=== PATIENT | female | born 1995 | race Caucasian/White ===

== ENCOUNTER 2021-11-27 16:17 | Emergency (ER) | payer OTHER, SELFPAY ==
[2021-11-27 16:18] VITALS: BP 137/98; PULSE 109; RESP 18; TEMP 36.3; O2SAT 99; BMI 41.7
[2021-11-27 16:36] LABS: Bacteria 0 SEEN /hpf (None Seen); Mucous, Urine 0 SEEN /hpf (<or=2+); Red Blood Cells-Urine 0 SEEN /hpf (0-5)
[2021-11-27 16:46] LABS: Color, Urine Yellow (Yellow); Glucose, Dipstick Normal (Normal); Ketone-Dipstick Negative (Negative); Leukocyte Esterase-Dipstick 100 /ul (Negative); Nitrite-Dipstick Negative (Negative); Occult Blood-Urine 10 /ul (Negative); Protein-Dipstick Negative (Negative); Urine Bilirubin Dipstick Negative (Negative); Urine Clarity Clear (Clear); Urine Urobilinogen Normal (Normal)
[2021-11-27 17:29] LABS: Squamous Epithelial Cells - UA 0-5 SEEN /hpf (5-10); White Blood Cells 0-5 SEEN /hpf (0-5)
--- NOTE | 2021-11-27 18:10 | CT_ITS ---
STUDY: CT Abdomen And Pelvis W/O Contrast Injection 11/27/2021 6:46 PM REASON FOR EXAM: Female, 26 years old. ABDOMINAL PAIN Pain TECHNIQUE: Transaxial images were obtained without oral contrast, and without intravenous contrast. Individualized dose optimization techniques were used for this CT. COMPARISON: 12.06.14. FINDINGS: The visualized lung bases are unremarkable. The visualized portions of the heart are within normal limits. There is hepatomegaly with diffuse hepatic enlargement. There is non-visualization of the gallbladder, which may be secondary to either contraction or a prior cholecystectomy. Unremarkable spleen. Unremarkable pancreas. Unremarkable bilateral adrenal glands. No acute findings of the right kidney. No acute findings of the left kidney. Unremarkable visualized stomach. Unremarkable small intestine. Unremarkable colon. The appendix is visualized and appears unremarkable. There are no acute findings of the abdominal aorta. Unremarkable inferior vena cava. Subcentimeter mesenteric lymph nodes. Right ovary cyst. No follow up required. Unremarkable urinary bladder. There is absence of the uterus consistent with a prior hysterectomy. There is an umbilical hernia containing fat. Unremarkable osseous structures. CT/Abdomen/Pelvis without Cont IMPRESSION: (NOT LISTED IN ORDER OF SIGNIFICANCE) There are no acute findings. There is hepatomegaly with diffuse hepatic enlargement. Other findings as above. Electronically Signed: Otto Díaz MD at 18:47 EDT ,
--- NOTE | 2021-11-27 18:11 | EDS_ITS ---
HPI HPI - GI History of Present Illness Chief Complaint: Abd Pain Narrative Narrative: Patient presents with suprapubic to periumbilical abdominal pain that began on Tuesday, approximately 4 days ago. She states that she had urinary frequency and some discomfort with urination. She thought maybe she had a UTI so she started drinking cranberry juice. She denies any fevers or chills. No nausea or vomiting. She then began having more suprapubic to periumbilical pain. She had history of ovarian cysts and felt that this was similar. However, when she is a heating pad, it made the pain worse. It became sharp and stabbing and more unrelenting. She denies any hematuria or other problems with urination. No problems with bowel movements. Of note, she did have a partial hysterectomy then developed a 10 cm ovarian cyst on the right. They had to remove her left ovary because of an ovarian cyst. She denies any true exacerbating or alleviating factors, only stating that the heating pad made her pain worse. Nothing made it better including Tylenol and ibuprofen. She presents because of the continued pain. She denies any problems with bowel movements. [facility] Medical History (Updated 11/27/21 @ 19:08 by David Simental MD) Cholecystectomy planned Ovarian cyst Allergy/AdvReac Type Severity Reaction Status Date / Time chlorhexidine gluconate Allergy Hives Verified 11/27/21 16:19 [From [facility]] codeine Allergy Hives Verified 11/27/21 16:19 penicillin Allergy Hives Verified 11/27/21 16:19 Surgical History H/O: hysterectomy Social History Smoking Status: Never smoker ROS ROS ED ROS Narrative Constitutional: No fever, no chills. HEENT: No sore throat. No neck pain. No loss of vision. No rhinorrhea. Cardiovascular: No chest pain. No palpitations. No pedal edema. Respiratory: No cough, no shortness of breath. Abdominal: Periumbilical to suprapubic abdominal pain. No nausea. No vomiting. Genitourinary: No dysuria. No hematuria. Musculoskeletal: No myalgias. No arthralgias. Neurologic: No headaches. No dizziness. No lightheadedness. Skin: No rash. No change in color. Psychiatric: No depression. No anxiety. EXAM Physical Exam Narrative Exam Narrative: Afebrile. Vital signs noted. HEENT: Normocephalic. Atraumatic. PERRL, EOMI. Neck soft and supple. No point tenderness or step off. Cardiovascular: Regular rate and rhythm. No murmurs, rubs, or gallops appreciated. Respiratory: No tachypnea. Lungs clear to auscultation bilaterally. Gastrointestinal: Abdomen soft, mild tenderness periumbilical to suprapubic, with normoactive bowel sounds. No rebound or guarding. Neurological: Awake. Alert. Nonfocal, nonlateralizing. Skin: No rash. Normal color. No pallor. Musculoskeletal: No pedal edema. Full range of motion extremities. Const Vital Signs: 11/27/21 16:18 Temperature 97.4 F L Temperature Source Temporal Pulse Rate 109 H Respiratory Rate 18 Blood Pressure 137/98 H Blood Pressure Mean 111 Pulse Ox 99 Oxygen Delivery Method Room Air MDM MDM MDM Narrative Medical decision making narrative: Nursing protocol had been started. Urinalysis shows leukocyte esterase 100 but only 0-5 WBCs. Negative ketones. I do feel CT imaging is warranted. CBC and BMP are pending. She will be given Toradol for analgesia. After Toradol she states she feels improved. She has slightly elevated white count at 12.5 which I think is nonspecific, normal hemoglobin of 13.3, normal platelet count of 355. Electrolyte panel is grossly unremarkable. Urinalysis shows 100 leukocyte esterase but 0-5 WBCs. I do not feel antibiotics are indicated. CT of the abdomen pelvis shows no acute process. While there is a right ovarian cyst, there is no free fluid. She may have a fatty liver. At this point in time, I feel she be discharged safely home. She will follow-up with her [employer]. She will also follow-up with her primary care physician. Return instructions to the emergency department were reviewed. Disposition is discharged home in stable condition. Lab Data Attestation: I reviewed the patient's lab results. Labs: Laboratory Results - last 24 hr 11/27/21 11/27/21 11/27/21 16:26 18:03 18:03 WBC 12.5 H RBC 4.93 Hgb 13.3 Hct 41.1 MCV 83.4 MCH 27.0 MCHC 32.4 RDW Std Deviation 39.0 RDW Coeff of Lisha 12.9 Plt Count 355 MPV 11.2 Immature Gran % (Auto) 0.200 Neut % (Auto) 75.0 H Lymph % (Auto) 17.3 L Crosby % (Auto) 5.5 Eos % (Auto) 1.6 Baso % (Auto) 0.4 Absolute Neuts (auto) 9.4 H Absolute Lymphs (auto) 2.16 Nucleated RBC % 0 Sodium 139 Potassium 3.9 Chloride 106 Carbon Dioxide 28.0 Anion Gap 5 BUN 6 L Creatinine 0.69 Estim Creat Clear Calc 104.82 Est GFR (MDRD) Af Amer 130 Est GFR (MDRD) Non-Af 108 BUN/Creatinine Ratio 8.7 L Glucose 94 Calcium 9.4 Urine Color Yellow Urine Clarity Clear Urine pH 7.0 Ur Specific Woodman 1.010 Urine Protein Negative Urine Glucose (UA) Normal Urine Ketones Negative Urine Occult Blood 10 H Urine Nitrite Negative Urine Bilirubin Negative Urine Urobilinogen Normal Ur Leukocyte Esterase 100 H Urine RBC 0 SEEN Urine WBC 0-5 SEEN Ur Squamous Epith Cells 0-5 SEEN Urine Bacteria 0 SEEN Urine Mucus 0 SEEN Radiography Diagnostic Testing: Clinical Impression(s) from Imaging Studies Abdomen/Pelvis CT 11/27/21 18:10 IMPRESSION: (NOT LISTED IN ORDER OF SIGNIFICANCE) There are no acute findings. There is hepatomegaly with diffuse hepatic enlargement. Other findings as above. Electronically Signed: Otto Díaz MD at 18:47 EDT Reading Location ID and State: [facility] / [place] , Service support , Discharge Plan Triage Chief Complaint: Abd Pain ED Provider: David Simental Dx/Rx/DC Orders Clinical Impression: Abdominal pain, Dysuria Instructions: ED Abdominal Pain Unkn Cause Fem, ED Dysuria, Uncertain Cause (Adult) Primary Care Provider: Care Physician,No Primary Referrals: NOT,DEFINED [NON-STAFF] - Activity Restrictions/Additional Instructions: Your CT showed no acute process. You do have a right ovarian cyst, but it has not ruptured. Follow-up with your [employer], and your primary care physician. Return with new or worsening symptoms. Disposition Disposition: Home, Self Care
[2021-11-27 18:23] LABS: Absolute Lymphocyte Count 2.16 X10^3/uL (0.83-4.51); Absolute Neutrophil Count 9.4 X10^3/uL (2.0-7.7); Basophil# 0.05 X10^3/uL; Basophil% 0.4 % (0-1); Eosinophils% 1.6 % (0-5); Hematocrit 41.1 % (37-47); Hemoglobin 13.3 g/dL (12.0-15.0); Lymphocyte # 2.16 X10^3/ul (0.83-4.51); Lymphocyte % 17.3 % (19-41); Mean Corp Hgb Conc 32.4 g/dL (32-36); Mean Corpuscular Volume 83.4 fL (81-99); Mean Platelet Vol. 11.2 fl (6.2-12.0); Monocyte# 0.69 X10^3/uL; Monocyte% 5.5 % (0-10); NRBC Flagged by Analyzer 0 % (0-5); Neutrophil # 9.36 X10^3/uL (2.7-7.7); Platelet Count 355 K/mm3 (150-450); RBC Distribution Width CV 12.9 % (11.6-14.6); Red Blood Count 4.93 M/mm3 (4.2-5.4); White Blood Count 12.5 K/mm3 (4.4-11.0)
[2021-11-27 18:41] LABS: Anion Gap 5 (5-15); BUN 6 mg/dL (7-18); BUN/Creat Ratio 8.7 RATIO (10-20); Calcium,Total 9.4 mg/dL (8.5-10.1); Chloride 106 mmol/L (98-107); Creatinine, Serum 0.69 mg/dL (0.55-1.02); EST Glomerular Filtration Rate 108 mL/min (>60); Est Glom Filt Rate - Afr Amer 130 mL/min (>60); Estimated Creatinine Clearance 104.82 ml/min; Glucose 94 mg/dL (74-106); Potassium 3.9 mmol/L (3.5-5.1); Sodium Level 139 mmol/L (136-145)
[2021-11-27] MEDS: 0.9% Normal Saline 1,000 ML 999 ML IV (18:44)
[2021-11-27] MEDS: Ketorolac 30 MG/ML Syringe IV (18:44)
== END 2021-11-27 19:17 | disposition home or self-care (01) ==
PROVIDERS: Emergency Provider Emergency Medicine; Visit Provider Emergency Medicine
DX: R10.9 Unspecified abdominal pain (principal); R30.0 Dysuria; N83.201 Unspecified ovarian cyst, right side
CPT/HCPCS: 74176; 80048; 81001; 85025; 99283; J7030; A4216

== ENCOUNTER → 2025-01-28 | Outpatient (CLI) | payer OTHER, SELFPAY ==
--- NOTE | 2025-01-28 12:00 | BI_ITS ---
EXAM: SCRN MAMM (CAD)W/KAYLYNN BILAT DATE: 01/28/2025 CLINICAL HISTORY: F, Age 29 y/o , SCREENING TECHNIQUE: Procedure Code: [id number] Modality: MG Procedure: SCRN MAMM (CAD)W/KAYLYNN BILAT COMPARISON: Prior exam(s) were compared FINDINGS: TISSUE DENSITY: The breasts are heterogeneously dense, which may obscure small masses. Bilateral Breast Mammographic Findings: No suspicious masses, calcifications or other abnormalities are identified. BI/SCRN MAMM (CAD)W/KAYLYNN BILAT IMPRESSION: No mammographic evidence of malignancy in either breast OVERALL FINAL ASSESSMENT BI-RADS 1: NEGATIVE. RECOMMENDATION: Routine annual follow-up in 1 Year A letter with findings and recommendations will be mailed to the patient. Reading Location: [id number]
--- OUTSIDE RECORDS SUMMARY | 2025-01-28 20:35 | XMS RPT_ITS | CCD ---
Author Organization [facility] Care Team Providers Care Shove Up Name Role Phone PHYSICIAN, NONE Primary Care Physician Unavailab le Unavailable Primary Care Provider Unavailabl e PHYSICIAN, NONE Primary Care Unavailable LYRIC THAPA MD Attending Unavailable LYRIC THAPA MD Attending Unavailable PHYSICIAN, NONE Primary Care Unavailable PHYSICIAN, NONE Primary Care Unavailable LYRIC THAPA MD Attending Unavailable MARCO MESSER, PARI Stanley Attending Unav ailable PHYSICIAN, NONE Primary Care Unavailable PHYSICIAN, NONE Primary Care Unavailable JESSICA MAS Attending Unavail able LYRIC THAPA MD Attending Unavailable PHYSICIAN, NONE Primary Care Unavailable PHYSICIAN, NONE Primary Care Unavailable LYRIC THAPA MD Attending Unavailable PHYSICIAN, NONE Primary Care Unavailable MARCO CALLAHAN-ELENA, PARI Stanley Attending Unav ailable Unavailable Primary Care Provider Unavailabl e PHYSICIAN, NONE Primary Care Unavailable LYRIC THAPA MD Attending Unavailable PHYSICIAN, NONE Primary Care Unavailable LYRIC THAPA MD Attending Unavailable PHYSICIAN, NONE Primary Care Unavailable LYRIC THAPA MD Attending Unavailable PHYSICIAN, NONE Primary Care Unavailable LYRIC THAPA MD Attending Unavailable Pari Lara Referring Unavailable Pari Lara Attending Unavailable Care Physician, No Primary Primary Care Unava ilable Allergies Allergy Classification Reported Allergen(s) Allergy Type Date of Onset Reaction(s) Facility (5 sources) Chlorhexidine; Translations: [CHLORHEXIDINE GLUCONATE] Drug Allergy 5 Hives, Itching [facility] (13 sources) Codeine; Translations: [codeine] Drug Allergy 2 [facility] (14 sources) Penicillin; Translations: [penicillin] Drug Allergy 2 [facility] (12 sources) Chlorhexidine; Translations: [chlorhexidine topical] Drug Allergy [facility] (3 sources) Acetaminophen / Codeine; Translations: [ACETAMINOPHEN-CO DEINE] Drug Allergy 4 [facility] (3 sources) Adhesive Tape; Translations: [ADHESIVE TAPE (ROSINS)] Propensity to adverse reactions 8 [facility] (3 sources) Doxycycline; Translations: [DOXYCYCLINE] Drug Allergy 2 Rash [facility] (3 sources) Penicillins; Translations: [PENICILLINS] Drug Allergy 2 [facility] (1 source) Environmental allergies [Other] Propensity to adverse reactions 8 [facility] (1 source) OTHER; Translations: [OTHER] Propensity to adverse reactions (disorder) 8 [facility] (1 source) Codeine Drug Allergy 2 [facility] Medications Current Medications Medication Drug Class(es) Dates Sig (Normalized) Sig (Original) acetaminophen 325 mg / oxyCODONE hydrochloride 5 mg oral tablet (3 sources) Opioid Agonist Start: 03-15-2024 End: 03-22-2024 take 1 tablet by mouth every four hours as needed for pain Percocet 5 mg-325 mg oral tablet Dose = 1 tab(s), Oral, q4h, PRN as needed for pain, X 7 day(s), # 20 tab(s), 0 Refill(s), Pharmacy: [id number], S/P right oophorectomy S/P laparoscopic surgery, 162.6, cm, 03/15/24 6:32:00 EDT, Height, 127.3, kg, 03/15/24 6:32:00 EDT, Dosing Weight Start Date: 03/15/24 Stop Date: 03/22/24 Status: Ordered Start: 12-07-2021 End: 12-14-2021 take 1 tablet by mouth every six hours as needed for pain Percocet 5 mg-325 mg oral tablet Dose = 2 tab(s), Oral, q6h, PRN for pain, X 4 day(s), # 24 tab(s), 0 Refill(s), Pharmacy: [id number], Pelvic pain Right ovarian cyst, 162.6, cm, 12/10/21 11:15:00 EDT, Height, 108, kg, 12/10/21 11:15:00 EDT, Dosing Weight Start Date: 12/10/21 Stop Date: 12/14/21 Status: Ordered [id number] 200 actuat albuterol 0.09 mg/actuat metered dose inhaler (2 sources) beta2-Adrenergic Agonist Start: 08-01-2019 take 2 puff(s) by inhalation every four hours as needed albuterol HFA (PROVENTIL HFA, VENTOLIN HFA) 90 mcg/actuation inhaler Indications: Wheezing Inhale 2 Puffs as instructed every 4 hours as needed. 1 Inhaler 08/01/2019 Active Comment on above: Inhale 2 Puffs as in structed every 4 hours as needed. azithromycin 250 mg oral tablet (2 sources) Macrolide Antimicrobial Start: 04-23-2024 End: 04-28-2024 azithromycin (ZITHROMAX Z-ARELIS) 250 mg tablet Take 2 tablets day one, then, 1 tablet daily until gone. 6 tablet 04/23/2024 04/28/2024 Active Start: 05-07-2022 End: 05-12-2022 azithromycin (ZITHROMAX Z-PA K) 250 mg tablet Take 2 tablets day one, then, 1 tablet daily until gone. 6 tablet 0 05/07/2022 05/12/2022 Active Comment on above: Take 2 tablets day o ne, then, 1 tablet daily until gone. benzonatate 100 mg oral capsule (2 sources) Non-narcotic Antitussive Start: 08-01-19 20 take 1 capsule by mouth three times daily as needed benzonatate (TESSALON PERLES) 100 mg capsule Indications: Influenza-like illness Take 1 capsule by mouth three times daily as needed. 40 capsule 08/01/2019 Active Comment on above: Take 1 capsule by [facility] three times daily as needed. betamethasone 0.5 mg/ml / clotrimazole 10 mg/ml topical cream (2 sources) Azole Antifungal, Corticosteroid Start: 07-25-19 15 clotrimazole-betam ethasone (LOTRISONE) cream Apply 1 application to affected area twice daily. Apply for 14 days. 45 g 0 07/24/2014 Active Comment on above: Apply 1 application to affected area twice daily. Apply for 14 days. docusate sodium 100 mg oral capsule (2 sources) Start: 06-24-19 take 1 capsule by mouth twice daily docusate sodium (COLACE) 100 mg capsule Take 1 capsule by mouth twice daily. 30 capsule 2 06/24/2014 Active Comment on above: Take 1 capsule by [facility] twice daily. estradiol 2 mg oral tablet (3 sources) Estrogen Start: 03-15-20 End: 03-10-20 estradiol 2 mg oral tablet Dose : 2 mg = 1 tab(s), Oral, qDay, # 90 tab(s), 3 Refill(s), Pharmacy: [id number], 162.6, cm, 03/15/24 6:32:00 EDT, Height, kg, 03/15/24 6:32:00 EDT, Dosing Weight Start Date: 03/15/24 Stop Date: 03/10/25 Status: Ordered Quantity: 90.0 Unit: tab(s) Repeat number: 4 {7 (Ethinyl Estradiol 0.01 MG Oral Tablet) / 84 (Ethinyl Estradiol 0.03 MG / Levonorgestrel 0.15 MG Oral Tablet) } Pack [Simpesse Day] (1 source) Progestin, Estrogen, Progestin-containing Intrauterine Device Start: 12-10-19 take 1 tablet by mouth once daily Simpesse oral tablet Dose = 1 tab(s), Oral, qDay, # 91 tab(s), 0 Refill(s), Pharmacy: [id number], 162, cm, 04/05/22 9:56:00 EST, Height, kg, 04/05/22 9:56:00 EST, Dosing Weight Start Date: 12/09/22 Status: Ordered 12 hr guaiFENesin 600 mg extended release oral tablet (2 sources) Start: 08-01-19 take 2 tablets by mouth twice daily guaiFENesin (MUCINEX) 600 mg 12 hr tablet Indications: Influenza-like illness Take 2 tablets by mouth twice daily. 30 tablet 08/01/2019 Active Comment on above: Take 2 tablets by [facility] twice daily. 12 hr guaiFENesin 600 mg / pseudoephedrine hydrochloride 60 mg extended release oral tablet (2 sources) alpha-Adrenergic Agonist Start: 03-04-20 15 take 1 tablet by mouth every twelve hours pseudoephedrine-gu aiFENesin (,MUCINEX-D,) 60-600 mg per tablet Take 1 tablet by mouth every 12 hours. 30 tablet 1 07/24/2014 Active Comment on above: Take 1 tablet by airam every 12 hours. ibuprofen 600 mg oral tablet (11 sources) Nonsteroidal Anti-inflammatory Drug Start: 03-15-20 End: 04-04-20 ibuprofen 600 mg oral tablet Dose : 600 mg = 1 tab(s), Oral, q6h, PRN for pain, Take with food or milk., X 10 day(s), # 30 tab(s), 1 Refill(s), 04/04/24 7:18:00 AM EST, Pharmacy: [id number], 162.6, cm, 03/15/24 6:32:00 EDT, Height, kg, 03/15/24 6:32:00 EDT, Dosing Weight Start Date: 03/15/24 Stop Date: 04/04/24 Status: Ordered Start: 12-21-2021 take 1 tablet by airam every six hours as needed for pain ibuprofen 600 mg oral tablet TAKE 1 TABLET BY MOUTH EVERY 6 HOURS NEEDED FOR PAIN WITH FOOD OR MILK FOR 7 DAYS Start Date: 12/21/21 Status: Ordered Start: 06-11-2014 End: 12-17-2021 take 1 tablet by mouth every six hours as needed ibuprofen (MOTRIN) 600 mg tablet Take 1 tablet by mouth four times daily as needed. 40 tablet 1 06/11/2014 Active Comment on above: Take 1 tablet by airam four times daily as needed. oxymetazoline hydrochloride 0.5 mg/ml nasal spray (2 sources) Start: 08-01-2019 oxymetazoline (AFRIN, OXYMETAZOLINE,) 0.05 % nasal spray Indications: Influenza-like illness Use 2 Sprays in the nose twice daily. 1 Bottle 08/01/2019 Active Comment on above: Use 2 Sprays in the nose twice daily. predniSONE 10 mg oral tablet (3 sources) Start: 05-07-2022 predniSONE (DELTASONE) 10 mg tablet Take 4 tabs daily for 3 days, then 2 tabs daily for 3 days, then 1 tab daily for 3 days with food. 21 tablet 04/23/2024 Active Comment on above: Take 4 tabs daily fo r 3 days, then 2 tabs daily for 3 days, then 1 tab daily for 3 days with food. Problems Active Problems Problem Classification Problem Date Documented Date Episodic/Chronic Abdominal pain (15 sources) Abdominal pain; Translations: [Unspecified abdominal pain] Onset: 12-10-2021 12-03-2021 Episodic Asthma (2 sources) Allergic asthma; Translations: [Unspecified asthma, uncomplicated] Onset: 04-08-2008 04-08-2008 Chronic Complications of surgical procedures or medical care (1 source) Postsurgical menopause 03-22-2024 Chronic Endometriosis (2 sources) Endometriosis (clinical); Translations: [Endometriosis, unspecified] Onset: 08-11-2014 08-11-2014 Chronic Genitourinary symptoms and ill-defined conditions (1 source) Dysuria; Translations: [Dysuria] Episodic Headache; including migraine (2 sources) Migraine; Translations: [Migraine, unspecified, not intractable, without status migrainosus] Onset: 06-28-2013 06-28-2013 Chronic Menstrual disorders (4 sources) Dysmenorrhea; Translations: [Dysmenorrhea, unspecified] Onset: 02-22-2014 02-22-2014 Chronic Other aftercare (1 source) Surgical follow-up 03-22-2024 Episodic Other ear and sense organ disorders (1 source) Otalgia, right ear; Translations: [Otalgia, unspecified] Episodic Other female genital disorders (10 sources) History of gynecological disorder 06-16-2023 Episodic Other lower respiratory disease (1 source) Cough; Translations: [Acute cough] 04-23-2024 Episodic Other screening for suspected conditions (not mental disorders or infectious disease) (1 source) Encounter for screening mammogram for malignant neoplasm of breast; Translations: [Encounter for screening mammogram for malignant neoplasm of breast] Onset: 01-24-2025 Episodic Other upper respiratory disease (2 sources) Allergic rhinitis due to pollen; Translations: [Allergic rhinitis due to pollen] Onset: 04-08-2008 04-08-2008 Chronic Other upper respiratory disease (2 sources) Allergic rhinitis; Translations: [Allergic rhinitis, unspecified] Onset: 11-18-2008 11-18-2008 Chronic Other upper respiratory infections (1 source) Chronic sinusitis, unspecified; Translations: [Unspecified sinusitis (chronic)] 04-23-2024 Chronic Other upper respiratory infections (2 sources) Pharyngitis; Translations: [Acute pharyngitis, unspecified] Episodic Ovarian cyst (1 source) Cyst of right ovary; Translations: [Unspecified ovarian cyst, right side] Onset: 12-10-2021 Episodic Residual codes; unclassified (2 sources) Past history of procedure; Translations: [Other specified postprocedural states] Onset: 12-10-2021 Episodic Residual codes; unclassified (13 sources) History of laparoscopy 12-10-2021 Episodic Residual codes; unclassified (1 source) Acquired absence of ovary; Translations: [Acquired absence of ovaries, unilateral] Onset: 03-15-2024 Episodic Residual codes; unclassified (2 sources) History of right oophorectomy 03-15-2024 Episodic Unclassified (10 sources) Pain of right breast 06-16-2023 Unclassified (10 sources) Patient encounter status 04-05-2022 Past or Other Problems Problem Classification Problem Date Documented Da te Episodic/Chronic Early or threatened labor (1 source) False labor; Translations: [False labor, unspecified] Onset: 09-13-2013 Resolved: 02-22-2014 02-22-2014 Episodic Other complications of (1 source) Abdominal pain in ; Translations: [Other specified related conditions, unspecified trimester] Onset: 07-25-2013 Resolved: 02-22-2014 02-22-2014 Episodic Other complications of (1 source) Reduced movement; Translations: [Decreased movements, unspecified trimester, not applicable or unspecified] Onset: 08-19-2013 Resolved: 02-22-2014 02-22-2014 Episodic Other nervous system disorders (1 source) H/O: migraine; Translations: [Personal history of other diseases of the nervous system and sense organs] Onset: 06-28-2013 Resolved: 02-22-2014 02-22-2014 Episodic Results Test Name Value Interpretation Reference Range Facility [place] MAMMOGRAM DIAGNOSTIC ABHI T Blanca/Ginger 08-10-2024 [place] MAMMOGRAM DIAGNOSTIC RIGHT W/DAMIAN ORIGINAL FROM: [address] [address] PROCEDURE FOR: ELMO NUNO [address] [place] [id number] Home: PID#: [id number] Exam#: [id number] : 1995 Age: 29 TO: LYRIC THAPA MD [address] [address] Fax: NO FAX EXAMINATION: DIAGNOSTIC DIGITAL RIGHT BREAST MAMMOGRAM WITH TOMOSYNTHESIS, 08/08/2024 2:47 pm TECHNIQUE: Diagnostic mammography of the right breast was performed with tomosynthesis. 2D standard and 3D tomosynthesis combination imaging performed through the right breast. Computer aided detection was utilized in the interpretation of this exam. Current study was also evaluated with a Computer Aided Detection (CAD) system. COMPARISON: 01/26/2024, 02/23/2024 HISTORY: ORDERING SYSTEM PROVIDED HISTORY: Reason for Exam: 6 MO FU FINDINGS: BREAST DENSITY: There are scattered areas of fibroglandular density. The focal asymmetry in the right breast upper outer quadrant is decreased in size and density. No significant masses, calcifications, or other findings. IMPRESSION: No mammographic evidence of malignancy. Right breast focal asymmetry is decreased in size and density, this is consistent with normal breast tissue, no follow-up imaging is needed. The patient may return to annual screening mammography schedule. Marium Zaldivar risk calculations, generated with the history provided, report this patient's 10 year risk and lifetime risk for developing breast cancer at 0.8% and 17.4%, respectively. Based on this assessment tool, if the patient's calculated lifetime risk is below 20%, then the patient is considered at average risk for developing breast cancer. If the patient's calculated lifetime risk is at or above 20%, then the patient is considered high risk for developing breast cancer and may be a candidate for supplemental breast MRI screening in addition to annual mammographic screening per the [employer]. BIRADS: BI-RADS: 2: Benign RECALL: 6 month follow-up RECALL TYPE: mammo LETTER SENT: Normal BI-RADS 1 and 2 Interpreted by: Ronni Reynoso MD Preliminary Report By: Ronni Reynoso MD Electronically signed By oRnni Reynoso MD Dictated Date: 08/10/2024 3:57:31 PM Prelim Date: 08/10/2024 4:02:36 PM Sign Date: 08/10/2024 4:02:36 PM Ordering Provider: LYRIC THAPA Checkering Machine Adjuster: TREVOR CUNHA)(Reuben) letter sent: Normal BI-RADS 1 and 2 Mammogram BI-RADS: 2 Benign Normal [facility] CNOVon 04-23-2024 CNOV Office Visit (UCWSTR ) ELMO NUNO ([id number]) 1995 F Date Time Provider Department 04/23/24 1:00 PM PARI BOO [facility] During your visit today, we recorded the following information about you: Temperature Pulse Respiration Blood pressure 98.9 degrees 99/minute 18/minute 118/76 Weight 116.8 kg Pari Boo APRN.CNP 04/23/2024 12:57 PM Signed This note was created using NoteWriter. Subjective Elmo Nuno is a 29 year old female. 29 year old female with PMH asthma (well controlled, citing she has not had inhaler since high school), migraine presents for illness Acute onset 2 weeks ago +cough +productive +sinus pressure +congestion +chills +fever Denies dyspnea Denies CP Denies SOB Has used OTC medicines Denies tobacco usage +ill contacts The history is provided by the patient. No application support lead was used. Cough This is a new problem. The current episode started more than 1 week ago. The problem occurs constantly. The problem has been gradually worsening. The cough is Productive of sputum. There has been no fever. Associated symptoms include chills, ear congestion and rhinorrhea. Pertinent negatives include no chest pain, no sweats, no weight loss, no ear pain, no headaches, no sore throat, no myalgias, no shortness of breath, no wheezing and no eye redness. She has tried nothing for the symptoms. She is not a smoker. Her past medical history is significant for asthma. Her past medical history does not include bronchitis, pneumonia, bronchiectasis, COPD or emphysema. PAST MEDICAL HISTORY Diagnosis Date Asthma controlled Endometriosis 05/2014 STAGE 2 Endometriosis 08/11/2014 PMH - PAST MEDICAL HISTORY OF primary dysmenorea Polycystic ovarian disease Psychiatric disorder Depression Rheumatoid arthritis(714.0) dx at age 3 S/P laparoscopic hysterectomy 07/14/2014 S/P total hysterectomy 05/2014 Status post total hysterectomy 08/11/2014 PAST SURGICAL HISTORY Procedure Laterality Date EXTRACTION, ERUPTED TOOTH OR EXPOSED ROOT (ELEVATION AND/OR FORCEPS REMOVAL) LAPAROSCOPY W TOTAL HYSTERECTOMY UTERUS 250 GM/< 05/2014 LAPS SURG CHOLECYSTECTOMY W/CHOLANGIOGRAPHY 05/19/2010 OVARIAN CYSTECTOMY 11/2011 laprascopic right cystectomy TONSILLECTOMY PRIMARY/SECONDARY Tonsillectomy age 3 ALLERGIES Acetaminophen-Codeine, Adhesive Tape (Rosins), Doxycycline, Hibiclens [Chlorhexidine Gluconate], and Penicillins MEDICATIONS estradiol (ESTRACE) 2 mg tablet 2 mg. azithromycin (ZITHROMAX Z-ARELIS) 250 mg tablet Take 2 tablets day one, then, 1 tablet daily until gone. predniSONE (DELTASONE) 10 mg tablet Take 4 tabs daily for 3 days, then 2 tabs daily for 3 days, then 1 tab daily for 3 days with food. predniSONE (DELTASONE) 10 mg tablet Take 4 tabs daily for 3 days, then 2 tabs daily for 3 days, then 1 tab daily for 3 days with food. (Patient not taking: Reported on 04/23/2024) guaiFENesin (MUCINEX) 600 mg 12 hr tablet Take 2 tablets by mouth twice daily. (Patient not taking: Reported on 04/23/2024) benzonatate (TESSALON PERLES) 100 mg capsule Take 1 capsule by mouth three times daily as needed. (Patient not taking: Reported on 05/07/2022) oxymetazoline (AFRIN, OXYMETAZOLINE,) 0.05 % nasal spray Use 2 Sprays in the nose twice daily. (Patient not taking: Reported on 04/23/2024) albuterol HFA (PROVENTIL HFA, VENTOLIN HFA) 90 mcg/actuation inhaler Inhale 2 Puffs as instructed every 4 hours as needed. (Patient not taking: Reported on 04/23/2024) pseudoephedrine-guaiFE Nesin (,MUCINEX-D,) 60-600 mg per tablet Take 1 tablet by mouth every 12 hours. (Patient not taking: Reported on 08/01/2019 ) clotrimazole-betametha sone (LOTRISONE) cream Apply 1 application to affected area twice daily. Apply for 14 days. (Patient not taking: Reported on 06/12/2018 ) docusate sodium (COLACE) 100 mg capsule Take 1 capsule by mouth twice daily. (Patient not taking: Reported on 06/12/2018 ) ibuprofen (MOTRIN) 600 mg tablet Take 1 tablet by mouth four times daily as needed. (Patient not taking: Reported on 08/01/2019 ) FAMILY HISTORY Problem Relation Age of Onset Asthma Mother Asthma Maternal Grandmother Heart Maternal Grandfather Ischemic Heart Disease Maternal Grandfather Ischemic Heart Disease Father Heart Father Diabetes Maternal Grandmother Diabetes Father Colon Cancer Paternal Grandfather Colon Cancer Father Diabetes Paternal Uncle Heart Paternal Uncle Heart Maternal Uncle Social History Tobacco Use Smoking status: Never Smokeless tobacco: Never Tobacco comments: mother smokes outside Substance Use Topics Alcohol use: No Drug use: No Review of Systems Constitutional: Positive for chills. Negative for fatigue, fever and weight loss. HENT: Positive for congestion, rhinorrhea, sinus pressure and sinus pain. Negative for ear pa (more content not included)... Normal [facility] Final Surgical Pathology Rep [facility] 03-19-2024 Final Surgical Pathology Report . Pathology Reports Accession: Collected Date/Time: Received Date/Time: Pathologist: [id number] 03/15/2024 08:12 EDT 03/16/2024 08:10 EDT FAUSTO CEDILLO MD Final Surgical Pathology Report DIAGNOSIS: RIGHT OVARY: - FOLLICULAR CYSTS IDENTIFIED CLINICAL INFORMATION: Procedure: LAPAROSCOPIC RIGHT OOPHORECTOMY Preoperative diagnosis: RIGHT OVARIAN CYST Postoperative diagnosis: RIGHT OVARIAN CYST SPECIMEN: A RIGHT OVARY GROSS DESCRIPTION: All parts labelled with patient name and [id number] Received in formalin labelled right ovary Is a white-cuellar to purple ovary weighing 12 g and measuring 4.1 x 3.1 x 1.8 cm. No fallopian tube is identified with the tissue. The ovary is sectioned to reveal a peripheral thin-walled cysts measuring up to 1.5 cm with no identified excrescences. The remaining ovarian cut surfaces appear unremarkable. RS-2 Tram Mcnulty, Pathologists' Yarn Tester (ASCP) Performed by TRAM MCNULTY MICROSCOPIC DESCRIPTION: The microscopic examination is performed, except in the case of Gross Only. Electronically Signed by Pathology Report verified by [facility] FAUSTO CEDILLO Sign out Date: 03/19/2024 13:34 Performing Lab: [facility], [address] [place] [address] Pathology Dept Disclaimer If ancillary studies were utilized, the following Laboratory Developed Test (LDT) disclaimer will apply: Under CLIA requirements, [facility] is qualified to perform high complexity testing. For all ancillary stains, positive and negative controls stain appropriately. Performance characteristics of immunohistochemical and chromogenic in-situ hybridization tests have been determined by [facility]. These tests are used for clinical purposes, They should not be regarded as investigational or for research. Normal [facility] ABO/Rh (Gel)on 03-15-2024 ABO/Rh Interp Positive Invalid Interpretation Code [facility] Comment on above: Performed By: #### A BSGEL, ABOGEL #### [address] [address] ABS (Gel)on 03-15-2024 ABSC Interp (Gel) Negative Normal [facility] Comment on above: Performed By: #### A BSGEL, ABOGEL #### [address] [address] LABORATORYOrdered By: Raudel Villanueva on 03-15-2024 ABO and Rh group Nom (Bld) Blood group O Rh(D) positive Invalid Interpretation Code AO BB Auto SS Blood group antibody screen Ql Negative ABSC (03/15/24 6:26 AM) Normal AO BB Auto SS .Auto Diffon 03-01-2024 Basophil, Absolute 0.1 10 3/mcL Normal 0.0-0.2 [facility] Comment on above: Performed By: #### A BOGEL, ANEU, ADIFF, CBC, ABSGEL #### [address] [address] Basophils/100 WBC (Bld) 0.7 % Normal 0.0-2.5 [facility] Comment on above: Performed By: #### A BOGEL, ANEU, ADIFF, CBC, ABSGEL #### [address] [address] Eosinophil, Absolute 0.4 10 3/mcL Normal 0.0-0.7 [facility] Comment on above: Performed By: #### A BOGEL, ANEU, ADIFF, CBC, ABSGEL #### [address] [address] Eosinophils/100 WBC (Bld) 3.9 % Normal 0.0-7.0 [facility] Comment on above: Performed By: #### A BOGEL, ANEU, ADIFF, CBC, ABSGEL #### [address] [address] Lymphocyte, Absolute 2.3 10 3/mcL Normal 0.9-4.3 [facility] Comment on above: Performed By: #### A BOGEL, ANEU, ADIFF, CBC, ABSGEL #### [address] [address] Lymphocytes/100 WBC (Bld) 23.6 % Normal 20.0-40.0 [facility] Comment on above: Performed By: #### A BOGEL, ANEU, ADIFF, CBC, ABSGEL #### [address] [address] Monocyte, Absolute 0.6 10 3/mcL Normal 0.1-1.4 [facility] [facility] Comment on above: Performed By: #### A BOGEL, ANEU, ADIFF, CBC, ABSGEL #### [address] [address] Monocytes/100 WBC (Bld) 6.3 % Normal 2.0-13.0 [facility] Comment on above: Performed By: #### A BOGEL, ANEU, ADIFF, CBC, ABSGEL #### [address] [address] Neutrophils/100 WBC (Bld) 65.5 % Normal 50.0-75.0 [facility] Comment on above: Performed By: #### A BOGEL, ANEU, ADIFF, CBC, ABSGEL #### [address] [address] .NEUABSon 03-01-2024 Neutrophil, Absolute 6.4 10 3/mcL Normal 2.3-8.1 [facility] Comment on above: Performed By: #### A BOGEL, ANEU, ADIFF, CBC, ABSGEL #### [place] [address] ABO/Rh (Gel)on 03-01-2024 ABO/Rh Interp Positive Invalid Interpretation Code [facility] Comment on above: Performed By: #### A BOGEL, ANEU, ADIFF, CBC, ABSGEL #### [place] [address] ABS (Gel)on 03-01-2024 ABSC Interp (Gel) Negative Normal [facility] Comment on above: Performed By: #### A BOGEL, ANEU, ADIFF, CBC, ABSGEL #### [place] [address] CBCon 03-01-2024 Erythrocyte distribution width (RBC) [Ratio] 13.6 % Normal 11.5-15.5 [facility] Comment on above: Order Comment: Pre-A dmission Testing Performed By: #### A BOGEL, ANEU, ADIFF, CBC, ABSGEL #### [place] [address] Hematocrit (Bld) [Volume fraction] 38.4 % Normal 34.0-46.0 [facility] Comment on above: Order Comment: Pre-A dmission Testing Performed By: #### A BOGEL, ANEU, ADIFF, CBC, ABSGEL #### [place] [address] Hgb 12.7 G/dL Normal 12.0-16.0 [facility] Comment on above: Order Comment: Pre-A dmission Testing Performed By: #### A BOGEL, ANEU, ADIFF, CBC, ABSGEL #### [facility] [place] [address] [place], [place] [address] MCH (RBC) [Entitic mass] 27.4 pg Normal 27.0-33.0 [facility] Comment on above: Order Comment: Pre-A dmission Testing Performed By: #### A BOGEL, ANEU, ADIFF, CBC, ABSGEL #### [address] [address] MCHC 33.1 G/dL Normal 32.0-36.0 [facility] Comment on above: Order Comment: Pre-A dmission Testing Performed By: #### A BOGEL, ANEU, ADIFF, CBC, ABSGEL #### [address] [address] MCV (RBC) [Entitic vol] 82.8 fL Normal 80.0-99.0 [facility] Comment on above: Order Comment: Pre-A dmission Testing Performed By: #### A BOGEL, ANEU, ADIFF, CBC, ABSGEL #### [address] [address] Platelet 328 10 3/mcL Normal 150-450 [facility] Comment on above: Order Comment: Pre-A dmission Testing Performed By: #### A BOGEL, ANEU, ADIFF, CBC, ABSGEL #### [address] [address] Platelet mean volume (Bld) [Entitic vol] 9.6 fL Normal 6.6-10.5 [facility] Comment on above: Order Comment: Pre-A dmission Testing Performed By: #### A BOGEL, ANEU, ADIFF, CBC, ABSGEL #### [address] [address] RBC 4.64 10 6/mcL Normal 4.10-5.30 [facility] Comment on above: Order Comment: Pre-A dmission Testing Performed By: #### A BOGEL, ANEU, ADIFF, CBC, ABSGEL #### [address] [address] WBC 9.7 10 3/mcL Normal 4.5-10.8 [facility] Comment on above: Order Comment: Pre-A dmission Testing Performed By: #### A CONSTANTINE, RAISA, ADIFF, CBC, ABSGEL #### [facility] [place] [id number] [place], [place] [address] LABORATORYOrdered By: Nahomy Atkins on 03-01-2024 ABO and Rh group Nom (Bld) Blood group O Rh(D) positive Invalid Interpretation Code AO BB Auto SS Blood group antibody screen Ql Negative ABSC (03/01/24 1:24 PM) Normal AO BB Auto SS LABORATORYOrdered By: SYSTEM SYSTEM on 03-01-2024 Basophils (Bld) [#/Vol] 0.1 103/mcL Normal 0.0 - 0.2 10^3/mcL AO Workflow SS Basophils/100 WBC (Bld) 0.7 % Normal 0.0 - 2.5 % AO Workflow SS Eosinophil, Absolute 0.4 103/mcL Normal 0.0 - 0 .7 10^3/mcL AO Workflow SS Eosinophils/100 WBC (Bld) 3.9 % Normal 0.0 - 7.0 % AO Workflow SS Erythrocyte distribution width (RBC) [Ratio] 13.6 % Normal 11.5 - 15.5 % AO Workflow SS Hematocrit (Bld) [Volume fraction] 38.4 % Normal 34.0 - 46.0 % AO Workflow SS Hemoglobin (Bld) [Mass/Vol] 12.7 G/dL Normal 12.0 - 16.0 G/dL AO Workflow SS Lymphocytes (Bld) [#/Vol] 2.3 103/mcL Normal 0.9 - 4.3 10^3/mcL AO Workflow SS Lymphocytes/100 WBC (Bld) 23.6 % Normal 20.0 - 40.0 % AO Workflow SS MCH (RBC) [Entitic mass] 27.4 pg Normal 27.0 - 33.0 pg AO Workflow SS MCHC 33.1 G/dL Normal 32.0 - 36.0 G/dL AO Workflow SS MCV (RBC) [Entitic vol] 82.8 fL Normal 80.0 - 99.0 fL AO Workflow SS Monocytes (Bld) [#/Vol] 0.6 103/mcL Normal 0.1 - 1.4 10^3/mcL AO Workflow SS Monocytes/100 WBC (Bld) 6.3 % Normal 2.0 - 13.0 % AO Workflow SS Neutrophils (Bld) [#/Vol] 6.4 103/mcL Normal 2.3 - 8.1 10^3/mcL AO Workflow SS Neutrophils/100 WBC (Bld) 65.5 % Normal 50.0 - 75.0 % AO Workflow SS Platelet mean volume (Bld) [Entitic vol] 9.6 fL Normal 6.6 - 10.5 fL AO Workflow SS Platelets (Bld) [#/Vol] 328 103/mcL Normal 150 - 450 10^3/mcL AO Workflow SS RBC (Bld) [#/Vol] 4.64 106/mcL Normal 4.10 - 5.3 0 10^6/mcL AO Workflow SS WBC (Bld) [#/Vol] 9.7 103/mcL Normal 4.5 - 10.8 10^3/mcL AO Workflow SS MA MAMMOGRAM DIAGNOSTIC RIGH T W/TOMOon 02-23-2024 MA MAMMOGRAM DIAGNOSTIC RIGHT W/DAMIAN ORIGINAL FROM: [address] [address] PROCEDURE FOR: ELMO NUNO [address] [place] [address] Home: PID#: [id number] Exam#: [id number] : 1995 Age: 28 TO: LYRIC THAPA MD [address] [address] Fax: NO FAX EXAMINATION: DIAGNOSTIC DIGITAL RIGHT BREAST MAMMOGRAM WITH TOMOSYNTHESIS, 02/23/2024 2:21 pm TECHNIQUE: Diagnostic mammography of the right breast was performed with tomosynthesis. 2D standard and 3D tomosynthesis combination imaging performed through the right breast. Computer aided detection was utilized in the interpretation of this exam. Current study was also evaluated with a Computer Aided Detection (CAD) system. COMPARISON: 01/26/2024, 01/16/2024, 07/15/2023 HISTORY: ORDERING SYSTEM PROVIDED HISTORY: Reason for Exam: RIGHT FOCAL ASYMMETRY FINDINGS: BREAST DENSITY: The breasts are heterogeneously dense, which may obscure small masses. The 3 cm focal asymmetry in the right breast at 11 o'clock described on the prior exam persists with additional spot compression tomosynthesis views. This does not correlate with the palpable lump in the right breast at 9 o'clock. No other significant masses, calcifications, or other findings. IMPRESSION: The 3 cm focal asymmetry in the right breast at 11 o'clock appears indeterminate. An ultrasound will be performed today and will be reported separately. No significant mammographic findings to correspond with the palpable lump. This area was previously evaluated with a negative ultrasound. Clinical follow-up is recommended. [facility] risk calculations, generated with the history provided, report this patient's 10 year risk and lifetime risk for developing breast cancer at 0.7% and 17.4%, respectively. Based on this assessment tool, if the patient's calculated lifetime risk is below 20%, then the patient is considered at average risk for developing breast cancer. If the patient's calculated lifetime risk is at or above 20%, then the patient is considered high risk for developing breast cancer and may be a candidate for supplemental breast MRI screening in addition to annual mammographic screening per the [employer]. BIRADS: BI-RADS: 0: Incomplete: Need Additional Imaging Evaluation RECALL: immediate RECALL TYPE: US LETTER SENT: Abnormal-Needs additional work up BI-RADS 0 Interpreted by: Lyric Mccoy MD Preliminary Report By: Lyric Mccoy MD Electronically signed By Lyric Mccoy MD Dictated Date: 02/23/2024 3:00:12 PM Prelim Date: 02/23/2024 3:03:19 PM Sign Date: 02/23/2024 3:03:19 PM Ordering Provider: LYRIC THAPA CLINICAL: MAMMOGRAPHIC DENSITY RIGHT BREAST. Checkering Machine Adjuster: TREVOR PARKER RT(R)(M) letter sent: Abnormal-Needs additional work up BI-RADS 0 Mammogram BI-RADS: 0 Indeterminate Normal [facility] US BREAST RIGHT LIMITEDon US BREAST RIGHT LIMITED ORIGINAL FROM: [facility] [address] [place] [address] PROCEDURE FOR: ELMO NUNO [address] [place] [address] Home: PID#: [id number] Exam#: [id number] : 1995 Age: 28 TO: LYRIC THAPA MD [address] [address] Fax: NO FAX EXAMINATION: ULTRASOUND OF THE RIGHT BREAST 02/23/2024 2:23 pm TECHNIQUE: Color flow and jim scale targeted ultrasound of the right breast upper outer quadrant were performed. Permanently stored images were reviewed. COMPARISON: 02/23/2024, 01/26/2024, 01/16/2024, 07/15/2023 HISTORY: ORDERING SYSTEM PROVIDED HISTORY: Reason for Exam: RIGHT FOCAL ASYMMETRY Focal asymmetry right breast 11 o'clock FINDINGS: There are no significant sonographic findings to correlate with the mammographic findings. IMPRESSION: There are no significant sonographic findings to correlate with the mammographic findings. Since the mammographic lesion is most likely asymmetric fibroglandular tissue and is probably benign, a 6 month follow up diagnostic right mammogram is recommended to demonstrate stability. There is no sonographic evidence of malignancy. BIRADS: BI-RADS: 3: Probably Benign RECALL: 6 month follow-up RECALL TYPE: Right mammo LETTER SENT: Probably Benign BI-RADS 3 Interpreted by: Lyric Mccoy MD Preliminary Report By: Lyric Mccoy MD Electronically signed By Lyric Mccoy MD Dictated Date: 02/23/2024 3:13:41 PM Prelim Date: 02/23/2024 3:15:35 PM Sign Date: 02/23/2024 3:15:35 PM Ordering Provider: LYRIC THAPA CLINICAL: ASYMMETRIC DENSITY RIGHT BREAST 11:00. Checkering Machine Adjuster: KM MACE RDPR letter sent: Probably Benign BI-RADS 3 Ultrasound BI-RADS: 3 Probably benign Normal [facility] [id number] 02-03-2024 CA 125 5.0 U/mL Normal 2.0-35.0 [facility] Comment on above: Result Comment: Test ing performed on the [employer] analyzer using direct chemiluminesent technology. Patient results determined by assays using different manufacturers for methods may not be comparable. Performed By: #### C A125 #### [facility] [address] [place] [id number] LABORATORYOrdered By: SYSTEM SYSTEM on 02-03-2024 Cancer Ag 125 Qn 5.0 [arb'U]/mL Normal 2.0 - 35. 0 U/mL ADM SS Comment on above: Interpretive Data: T esting performed on the [employer] IM analyzer using direct chemiluminesent technology. Patient results determined by assays using different manufacturers for methods may not be comparable. MA MAMMOGRAM DIAGNOSTIC BILA TERAL W/TOMOon 01-26-2024 MA MAMMOGRAM DIAGNOSTIC BILATERAL W/DAMIAN ORIGINAL FROM: [facility] [address] [place] [address] PROCEDURE FOR: ELMO NUNO [address] [place] [address] Home: PID#: [id number] Exam#: [id number] : 1995 Age: 28 TO: LYRIC THAPA MD [address] [address] Fax: NO FAX EXAMINATION: DIAGNOSTIC BILATERAL MAMMOGRAM WITH TOMOSYNTHESIS, 01/26/2024 1:34 pm TECHNIQUE: Tomosynthesis was performed as part of the diagnostic bilateral mammogram. 2D standard and 3D tomosynthesis combination imaging performed. Current study was also evaluated with a Computer Aided Detection (CAD) system. COMPARISON: None. HISTORY: ORDERING SYSTEM PROVIDED HISTORY: Reason for Exam: RT PALPABLE ABNORMALITY FINDINGS: BREAST DENSITY: The breasts are heterogeneously dense, which may obscure small masses. In the upper slightly lateral right breast 11 cm posterior to the nipple at 11 o'clock there is a 2.8 cm focal asymmetry. No significant masses, calcifications, or other findings. IMPRESSION: Right breast focal asymmetry, this is felt to be incidental finding, spot MLO and CC tomosynthesis through the area and a full field lateral view are recommended to further evaluate as well as ultrasound. BIRADS: BI-RADS: 0: Incomplete: Need Additional Imaging Evaluation RECALL: immediate RECALL TYPE: Mammo+US LETTER SENT: Abnormal-Needs additional work up BI-RADS 0 Interpreted by: Ronni Reynoso MD Preliminary Report By: Ronni Reynoso MD Electronically signed By Ronni Reynoso MD Dictated Date: 01/26/2024 3:48:51 PM Prelim Date: 01/26/2024 4:01:07 PM Sign Date: 01/26/2024 4:01:07 PM Ordering Provider: LYRIC THAPA CLINICAL: PAIN TO OUTER RIGHT BREAST RADIATING INTO AXILLA W/ SWELLING. Checkering Machine Adjuster: ROSALIE MCGARRY RT(R)(M) letter sent: Abnormal-Needs additional work up BI-RADS 0 Mammogram BI-RADS: 0 Indeterminate Normal [facility] US PELVIS NON-OB W/TRANSVAGI NALon 01-17-2024 US PELVIS NON-OB W/TRANSVAGINAL ORIGINAL EXAMINATION: TRANSVAGINAL and transabdominal PELVIC ULTRASOUND 01/17/2024 10:17 am COMPARISON: 12/06/2023 HISTORY: ORDERING SYSTEM PROVIDED HISTORY: Reason for Exam: FU 7 mm complex cyst LMP: 10 years ago. . History of endometriosis. History of hysterectomy and left oophorectomy. 3/4 of the right ovary was also removed. All images are recorded and archived. FINDINGS: Transabdominal sonographic examination of the pelvis was performed. Transvaginal scanning was also performed. The uterus is surgically absent. Right ovary: The right ovary measures 4.1 x 2.9 x 2.8 cm. There is positive arterial and venous Doppler flow and waveforms to the right ovary. Normal follicular changes are noted. 2.4 x 1.8 x 1.4 cm well-circumscribed, complex right ovarian cystic lesion with an 1.2 cm internal solid component present posteriorly. This lesion now has a larger cystic component and the internal solid component has increased in size as well. No significant vascularity of this lesion is noted on color Doppler images. Left ovary: The left ovary is surgically absent. There is no free fluid within the cul-de-sac. IMPRESSION: 2.4 cm well-circumscribed complex right ovarian cystic lesion with a 1.2 cm internal solid component without significant internal vascularity on color Doppler images. This could represent a corpus luteal cyst or a collapsed dominant follicle. Consider repeat pelvic ultrasound in 8-12 weeks or as warranted to confirm stability. I have personally reviewed the images of this examination and agree with the resident's findings and interpretation. Interpreted by: Jerry Bates DO Preliminary Report By: Kenan Correia Electronically signed By Jerry Bates DO Dictated Date: 01/17/2024 3:19:31 PM Prelim Date: 01/17/2024 4:10:24 PM Sign Date: 01/17/2024 4:10:24 PM Ordering Provider: PARI Nunn [facility] ([place] US BREAST RIGHT LIMITEDon US BREAST RIGHT LIMITED ORIGINAL FROM: [facility] [address] [place] [address] PROCEDURE FOR: ELMO NUNO [address] [place] [address] Home: PID#: [id number] Exam#: [id number] : 1995 Age: 28 TO: LYRIC THAPA MD [address] [address] Fax: NO FAX EXAMINATION: ULTRASOUND OF THE RIGHT BREAST 01/16/2024 3:16 pm TECHNIQUE: Color flow and jim scale targeted ultrasound of the 9 o'clock region were performed. Permanently stored images were reviewed. COMPARISON: Ultrasound July 15, 2023 HISTORY: ORDERING SYSTEM PROVIDED HISTORY: Reason for Exam: 6 month followup FINDINGS: The previously identified hyperechoic lesion within the right breast at 9 o'clock, 15 cm from the nipple was no longer seen on today's exam. No significant sonographic finding to explain the patient's continued palpable abnormality within the right breast. IMPRESSION: Unremarkable ultrasound. No significant sonographic findings to explain the patient's continued palpable abnormality within the right breast. Continued clinical follow-up is recommended. A bilateral diagnostic mammogram should also be performed in the presence of a palpable abnormality. BIRADS: MAMMOGRAM BI-RADS: 0: Needs addl evaluation RECALL: immediate RECALL TYPE: US LETTER SENT: Normal-Needs additional work up BI-RADS 0 Interpreted by: Jihan Wagner MD Preliminary Report By: Jihan Wagner MD Electronically signed By Jihan Wagner MD Dictated Date: 01/16/2024 6:58:02 PM Prelim Date: 01/16/2024 7:00:36 PM Sign Date: 01/16/2024 7:00:36 PM Ordering Provider: LYRIC THAPA CLINICAL: 6 MONTHS FOLLOW-UP RIGHT BREAST MASS 9:00. Checkering Machine Adjuster: KM MACE [facility] letter sent: Normal-Needs additional work up BI-RADS 0 Ultrasound BI-RADS: 0 Indeterminate Normal [facility] [place] US PELVIS NON-OB W/TRANSVAGI NALon 12-07-2023 US PELVIS NON-OB W/TRANSVAGINAL ORIGINAL EXAMINATION: TRANSVAGINAL PELVIC ULTRASOUND 12/06/2023 TECHNIQUE: Transvaginal pelvic ultrasound was performed. COMPARISON: None HISTORY: ORDERING SYSTEM PROVIDED HISTORY: Reason for Exam: pelvic pain, hx of ovarian cysts. Images recorded and archived. FINDINGS: Measurements: Uterus: Not measured. Endometrial stripe: Not measured. Right Ovary:2 x 2 6 cm Left Ovary: Not measured. Ultrasound Findings: Uterus: Uterus is surgically absent Right Ovary: Right ovary contains 7 mm hyperechoic focus centrally. Complex cyst or solid mass may be present. Left Ovary: Left ovary is within normal limits. Free Fluid: No evidence of free fluid. IMPRESSION: 1. Status post hysterectomy. 2. 7 mm hyperechoic focus within the right ovary. This may represent a complex cyst or solid mass. 3. Short-term sonographic follow-up in 6-12 weeks may be of further diagnostic value Interpreted by: Jerry Bates DO Preliminary Report By: Jerry Bates DO Electronically signed By Jerry Bates DO Dictated Date: 12/07/2023 3:44:32 PM Prelim Date: 12/07/2023 3:46:43 PM Sign Date: 12/07/2023 3:46:43 PM Ordering Provider: JESSICA Nunn [facility] ([place] US BREAST RIGHT LIMITEDon US BREAST RIGHT LIMITED ORIGINAL FROM: [address] [address] PROCEDURE FOR: ELMO [address]UN[address] [place] [address] Home: PID#: [id number] Exam#: [id number] : 1995 Age: 28 TO: LYRIC THAPA MD [address] [place], [place] [id number] Fax: NO FAX EXAMINATION: ULTRASOUND OF THE RIGHT BREAST 07/15/2023 10:06 am TECHNIQUE: Color flow and real-time targeted ultrasound of the right breast were performed. COMPARISON: None. HISTORY: ORDERING SYSTEM PROVIDED HISTORY: Reason for Exam: lump FINDINGS: Ultrasonographic evaluation of the area of interest was performed at the 9 o'clock position 15 cm from the nipple. The toll service observer notes that this region is outside of the breast tissue. There is demonstration of a 0.7 x 0.3 x 0.4 cm echogenicity that is wider than tall without posterior acoustic features. No increased vascularity is noted. Overall appearance suggests an atypical lipoma that is probably benign. Other regions of the breast including a region of pain were visualized and no other sonographic abnormality is seen. IMPRESSION: 0.7 x 0.3 x 0.4 cm probably benign atypical lipoma seen of the 9 o'clock position 15 cm from the nipple. A 6 month follow up right breast ultrasound is recommended to demonstrate stability. BIRADS: MAMMOGRAM BI-RADS: 3: Probably benign RECALL: 6 month follow-up RECALL TYPE: Right US LETTER SENT: Probably Benign BI-RADS 3 Interpreted by: Umair Wright MD Preliminary Report By: Umair Wright MD Electronically signed By Umair Wright MD Dictated Date: 07/15/2023 10:35:30 AM Prelim Date: 07/15/2023 10:49:41 AM Sign Date: 07/15/2023 10:49:41 AM Ordering Provider: LYRIC THAPA CLINICAL: PALPABLE LUMP RIGHT BREAST FOCAL PAIN RIGHT BREAST. Checkering Machine Adjuster: MARY SUAREZ [facility] letter sent: Probably Benign BI-RADS 3 Ultrasound BI-RADS: 3 Probably benign Normal [facility] ([place] STREP A MOLECULAR (POC)on Procedural Control Valid [facility] Strep A (POCT) Negative Negative [facility] LABORATORYOrdered By: Nola Guadarrama on 12-10-2021 ABO/Rh Interp Positive Invalid Interpretation Code AO BB SS Antibody Screen Gel Negative ABSC (12/10/21 11:05 AM) Invalid Interpretation Code AO BB SS LABORATORYOrdered By: Nola Guadarrama on 12-08-2021 Basophil, Absolute 0.1 103/mcL Invalid Interpretation Code 0.0 - 0.2 10^3/mcL AO Workflow SS Basophils/100 WBC (Bld) 0.6 % Invalid Interpretation Code 0.0 - 2.5 % AO Workflow SS Eosinophil, Absolute 0.3 103/mcL Invalid Interpretation Code 0.0 - 0.4 10^3/mcL AO Workflow SS Eosinophils/100 WBC (Bld) 4.0 % Invalid Interpretation Code 0.0 - 7.0 % AO Workflow SS Erythrocyte distribution width (RBC) [Ratio] 14.1 % Invalid Interpretation Code 11.5 - 14.5 % AO Workflow SS Hematocrit (Bld) [Volume fraction] 39.0 % Invalid Interpretation Code 37.0 - 47.0 % AO Workflow SS Hemoglobin (Bld) [Mass/Vol] 13.0 G/dL Invalid Interpretation Code 12.0 - 16.0 G/dL AO Workflow SS Lymphocyte, Absolute 2.2 103/mcL Invalid Interpretation Code 0.8 - 3.9 10^3/mcL AO Workflow SS Lymphocytes/100 WBC (Bld) 25.9 % Invalid Interpretation Code 10.0 - 50.0 % AO Workflow SS MCH (RBC) [Entitic mass] 27.0 pg Invalid Interpretation Code 27.0 - 31.2 pg AO Workflow SS MCHC 33.3 G/dL Invalid Interpretation Code 33.0 - 37.0 G/dL AO Workflow SS MCV (RBC) [Entitic vol] 81.2 fL Invalid Interpretation Code 80.0 - 94.0 fL AO Workflow SS Monocyte, Absolute 0.5 103/mcL Invalid Interpretation Code 0.2 - 1.0 10^3/mcL AO Workflow SS Monocytes/100 WBC (Bld) 6.2 % Invalid Interpretation Code 1.7 - 13.0 % AO Workflow SS Neutrophil, Absolute 5.4 103/mcL Invalid Interpretation Code 2.9 - 6.2 10^3/mcL AO Workflow SS Neutrophils/100 WBC (Bld) 63.3 % Invalid Interpretation Code 37.0 - 80.0 % AO Workflow SS Platelet mean volume (Bld) [Entitic vol] 9.6 fL Invalid Interpretation Code 7.4 - 10.4 fL AO Workflow SS Platelets (Bld) [#/Vol] 299 103/mcL Invalid Interpretation Code 130 - 400 10^3/mcL AO Workflow SS RBC (Bld) [#/Vol] 4.80 106/mcL Invalid Interpretation Code 4.20 - 5.40 10^6/mcL AO Workflow SS WBC 8.5 103/mcL Invalid Interpretation Code 4.6 - 10.8 10^3/mcL AO Workflow SS LABORATORYOrdered By: Valerie Casiano on 12-08-2021 Calcium [Mass/Vol] 8.7 mg/dL Invalid Interpretation Code 8.4 - 10.2 mg/dL AO ADM SS Chloride [Moles/Vol] 104 mmol/L Invalid Interpretation Code 98 - 107 mmol/L AO ADM SS CO2 [Moles/Vol] 28 mmol/L Invalid Interpretation Code 22 - 29 mmol/L AO ADM SS Creatinine [Mass/Vol] 0.71 mg/dL Invalid Interpretation Code 0.55 - 1.02 mg/dL AO ADM SS Electrolyte Balance 5.0 mEq/L Invalid Interpretation Code 4.0 - 15.0 mEq/L AO ADM SS Glucose [Mass/Vol] 75 mg/dL Invalid Interpretation Code 70 - 105 mg/dL AO ADM SS Potassium [Moles/Vol] 4.6 mmol/L Invalid Interpretation Code 3.5 - 5.1 mmol/L AO ADM SS Sodium [Moles/Vol] 137 mmol/L Invalid Interpretation Code 136 - 145 mmol/L AO ADM SS Urea nitrogen [Mass/Vol] 9 mg/dL Invalid Interpretation Code 7 - 18 mg/dL AO ADM SS Urea nitrogen/Creatinine [Mass ratio] 13 ratio Invalid Interpretation Code 7 - 27 ratio AO ADM SS LABORATORYOrdered By: SYSTEM SYSTEM on 12-08-2021 GFR 119 ml/min/1.73sqm Invalid Interpretation Code AO Chemistry S GFR Non- 98 ml/min/1.73sqm Invalid Interpretation Code AO Chemistry S Monocyte distribution width Auto (Bld) [Entitic vol] Not Performed 1 *NA* (12/08/21 1:30 PM) Invalid Interpretation Code 0.00 - 20.00 AO Hematology S Comment on above: Result Comment: MDW testing performed only on adult ER patients between the ages of 18-89 years. Absolute lymphocyte counton 11-27-2021 Lymphocytes Auto (Unsp spec) [#/Vol] 2.16 10*3/uL 0.83-4.51 [facility] Work Phone: Basophil percentageon 2021 Basophils/100 WBC (Bld) 0.4 % 0-1 [facility] Work Phone: Chloride [Moles/Vol] 106 mmol/L 98-107 [facility] Work Phone: Eosinophils/100 WBC (Bld) 1.6 % 0-5 [facility] Work Phone: Glucose [Mass/Vol] 94 mg/dL 74-106 [facility] Work Phone: Neutrophils (Bld) [#/Vol] 9.4 10*3/uL 2.0-7.7 [facility] Work Phone: Neutrophils/100 WBC (Bld) 75.0 % 47-70 [facility] Work Phone: Potassium [Moles/Vol] 3.9 mmol/L 3.5-5.1 [facility] Work Phone: Sodium [Moles/Vol] 139 mmol/L 136-145 [facility] Work Phone: WBC (Bld) [#/Vol] 12.5 10*3/uL 4.4-11.0 [facility] Work [facility]: Basophil percentage 0-5 SEEN /hpf 0-5 [facility] Work Phone: Bilirubin Test strip Ql (U)o n 11-27-2021 Bilirubin Ql (U) Negative Negative [facility] Work Phone: Blood erythrocytes count (nu mber/volume)on 11-27-2021 RBC (Bld) [#/Vol] 4.93 10*6/uL 4.2-5.4 [facility] Work Phone: Blood hemoglobin measurement (mass/volume)on 11-27-2021 Hemoglobin (Bld) [Mass/Vol] 13.3 g/dL 12.0-15.0 [facility] Work Phone: [phone] Blood lymphocytes/100 leukoc yteson 11-27-2021 Lymphocytes/100 WBC (Bld) 17.3 % 19-41 [facility] Work Phone: Blood monocytes/100 leukocyt eson 11-27-2021 Monocytes/100 WBC (Bld) 5.5 % 0-10 [facility] Work Phone: Blood platelet mean volumeon 11-27-2021 Platelet mean volume (Bld) [Entitic vol] 11.2 fL 6.2-12.0 [facility] Work Phone: Determination of erythrocyte mean corpuscular volume (MCV)on 11-27-2021 MCV (RBC) [Entitic vol] 83.4 fL 81-99 [facility] Work Phone: Hematocrit Auto (Bld) [Volum e fraction]on 11-27-2021 Hematocrit (Bld) [Volume fraction] 41.1 % 37-47 [facility] Work Phone: Ketones Test strip Ql (U)on 11-27-2021 Ketones Ql (U) Negative Negative [facility] Work Phone: Laboratory - Chemistry and C hemistry - challengeon 11-27-2021 CO2 [Moles/Vol] 28.0 mmol/L 21.0-32.0 [facility] Work Phone: Urea nitrogen/Creatinine [Mass ratio] 8.7 mg/mg 10-20 [facility] Work Phone: Laboratory - Hematology and Cell countson 11-27-2021 Erythrocyte distribution width (RBC) [Entitic vol] 39.0 fL 35.1-43.9 [facility] Work Phone: Erythrocyte distribution width (RBC) [Ratio] 12.9 % 11.6-14.6 [facility] Work Phone: Immature granulocytes/100 WBC (Bld) 0.200 % 0.0-0.9 [facility] Work Phone: Comment on above: IG% - Immature Granu locytes (promyelocytes, myelocytes and metamyelocytes) > 1% indicates that a LEFT SHIFT is Present. MCH (RBC) [Entitic mass] 27.0 pg 27.0-32.0 [facility] Work Phone: Nucleated RBC/100 WBC (Bld) [Ratio] 0 % 0-5 [facility] Work Phone: MCHC Auto (RBC) [Mass/Vol]on 11-27-2021 MCHC (RBC) [Mass/Vol] 32.4 g/dL 32-36 [facility] Work Phone: Mucus LM Ql (Urine sed)on Mucus Ql (Urine sed) 0 SEEN /hpf [facility] Work Phone: Nitrite Test strip Ql (U)on 11-27-2021 Nitrite Ql (U) Negative Negative [facility] Work Phone: No Panel Informationon 11-27 Estimated Creatinine Clearance Calc 104.82 ml/min [facility] Work Phone: Estimated GFR (MDRD) Amer 130 mL/min >60 [facility] Work Phone: Comment on above: GFR Calc Estimated GFR (MDRD) Non-Af Amer 108 mL/min >60 [facility] Work Phone: Comment on above: Non- GFR Calc Platelets bldon 11-27-2021 Platelets (Bld) [#/Vol] 355 10*3/uL 150-450 [facility] Work Phone: Protein Test strip Ql (U)on 11-27-2021 Protein Ql (U) Negative Negative [facility] Work Phone: Serum or plasma calcium darian urement (mass/volume)on 11-27-2021 Calcium [Mass/Vol] 9.4 mg/dL 8.5-10.1 [facility] Work Phone: Serum or plasma creatinine m easurement (mass/volume)on 11-27-2021 Creatinine [Mass/Vol] 0.69 mg/dL 0.55-1.02 [facility] Work Phone: Comment on above: The validity of the calculated GFR & GFRAA in patients over 70 years has not been determined. Clinical correlation is essential. Serum or plasma urea nitroge n measurement (mass/volume)on 11-27-2021 Urea nitrogen [Mass/Vol] 6 mg/dL 7-18 [facility] Work Phone: Squamous epithelial cells de tection in urine sediment by light microscopyon 11-27-2021 Epithelial cells.squamous LM Ql (Urine sed) 0-5 SEEN /hpf 5-10 [facility] Work Phone: Thin prep Papanicolaou smear with manual screeningon 11-27-2021 Thin prep Papanicolaou smear with manual screening 5 5-15 [facility] Work Phone: Urine blood detectionon RBC Ql (U) 10 /ul Negative [facility] Work Phone: RBC Ql (U) 0 SEEN /hpf 0-5 [facility] Work Phone: Urine clarityon 11-27-2021 Clarity (U) Clear Clear [facility] Work Phone: Urine color determinationon 11-27-2021 Color (U) Yellow Yellow [facility] Work Phone: Urine glucose detectionon Glucose Ql (U) Normal mg/dl Normal [facility] Work Phone: Urine leukocyte esterase det ection by dipstickon 11-27-2021 Leukocyte esterase Test strip Ql (U) 100 /ul Negative [facility] Work Phone: Urine pHon 11-27-2021 pH (U) 7.0 [pH] 5.0 - 8.0 [facility] Work Phone: Urine sediment bacteria coun t by microscopy (number/high power field)on 11-27-2021 Bacteria LM.HPF (Urine sed) [#/Area] 0 /[HPF] None Seen [facility] Work Phone: Urine specific gravity measu rementon 11-27-2021 Specific gravity (U) [Rel density] 1.010 1.002-1.030 [facility] Work Phone: Urobilinogen Auto test strip Ql (U)on 11-27-2021 Urobilinogen Ql (U) Normal mg/dl Normal [facility] Work Phone: Vital Signs Date Time Vital Sign Value Performing Clinician Facility 04-23-2024 12:19-0500 Body mass index (BMI) [Ratio] 44.2 kg/m2 Pari Boo PERLITE GRINDER.AIR SUPPORT OPERATIONS OPERATOR Work Phone: [facility] 04-23-2024 12:19-0500 Body temperature 98.91 [degF] Pari Boo [employer]LITE GRINDER.AIR SUPPORT OPERATIONS OPERATOR Work Phone: [facility] 04-23-2024 12:19-0500 Body weight 116.8 kg Pari Boo [employer]LITE GRINDER.AIR SUPPORT OPERATIONS OPERATOR Work Phone: [facility] 04-23-2024 12:19-0500 Diastolic blood pressure 76 mm[Hg] Pari Boo [employer]LITE GRINDER.AIR SUPPORT OPERATIONS OPERATOR Work Phone: [facility] 04-23-2024 12:19-0500 Heart rate 99 /min Pari Boo [employer]ER.AIR SUPPORT OPERATIONS OPERATOR Work Phone: [facility] 04-23-2024 12:19-0500 Respiratory rate 18 /min Pari Boo [employer]LITE GR[employer]ER.AIR SUPPORT OPERATIONS OPERATOR Work Phone: [facility] 04-23-2024 12:19-0500 SaO2% (BldA) [Mass fraction] 98 % Pari Boo PERLITE GRINDER.AIR SUPPORT OPERATIONS OPERATOR Work Phone: [facility] 04-23-2024 12:19-0500 Systolic blood pressure 118 mm[Hg] Pari Boo PERLITE GRINDER.AIR SUPPORT OPERATIONS OPERATOR Work Phone: [facility] 03-15-2024 09:40-0400 Diastolic Blood Pressure Non-Invasive 75 mm[Hg] LYRIC THAPA MD [facility] 03-15-2024 09:40-0400 Heart rate 76 /min LYRIC THAPA MD [facility] 03-15-2024 09:40-0400 Respiratory rate 20 /min LYRIC THAPA MD [facility] 03-15-2024 09:40-0400 Systolic Blood Pressure Non-Invasive 109 mm[Hg] LYRIC THAPA MD [facility] 03-15-2024 09:27-0400 Diastolic Blood Pressure Non-Invasive 76 mm[Hg] LYRIC THAPA MD [facility] 03-15-2024 09:27-0400 Heart rate 78 /min LYRIC THPAA MD [facility] 03-15-2024 09:27-0400 Systolic Blood Pressure Non-Invasive 114 mm[Hg] LYRIC THAPA MD [facility] 03-15-2024 09:14-0400 Diastolic Blood Pressure Non-Invasive 75 mm[Hg] LYRIC THAPA MD [facility] 03-15-2024 09:14-0400 Heart rate 87 /min LYRIC THAPA MD [facility] 03-15-2024 09:14-0400 Respiratory rate 18 /min LYRIC THAPA MD [facility] 03-15-2024 09:14-0400 Systolic Blood Pressure Non-Invasive 113 mm[Hg] LYRIC THAPA MD [facility] 03-15-2024 08:28-0400 Body temperature 97.52 [degF] LYRIC THAPA MD [facility] 03-15-2024 08:25-0400 Respiratory Rate - Anes 3 br/min LYRIC THAPA MD [facility] 03-15-2024 08:20-0400 Respiratory Rate - Anes 11 br/min LYRIC THAPA MD [facility] 03-15-2024 08:15-0400 Respiratory Rate - Anes 24 br/min LYRIC THAPA MD [facility] 03-15-2024 06:12-0400 Body height 162.6 cm LYRIC THAPA MD [facility] 03-15-2024 06:12-0400 Body temperature 97.88 [degF] LYRIC THAPA MD [facility] 03-15-2024 06:12-0400 Body weight 127.3 kg LYRIC THAPA MD [facility] 03-15-2024 06:12-0400 Heart rate 85 /min LYRIC THAPA MD [facility] 03-01-2024 13:07-0400 Body height 162.6 cm LYRIC THAPA MD [facility] 03-01-2024 13:07-0400 Body weight 127.3 kg LYRIC THAPA MD [facility] 03-01-2024 13:07-0400 Body weight 48.15 kg/m2 LYRIC THAPA MD [facility] 05-07-2022 10:25-0500 Body temperature 99 [degF] Pari Boo [employer]LITE GRINDER.AIR SUPPORT OPERATIONS OPERATOR Work Phone: [facility] 05-07-2022 10:25-0500 Body weight 112.67 kg Pari Boo PERLITE GR[employer]ER.AIR SUPPORT OPERATIONS OPERATOR Work Phone: [facility] 05-07-2022 10:25-0500 Diastolic blood pressure 78 mm[Hg] Pari Boo [employer]LITE GR[employer]ER.AIR SUPPORT OPERATIONS OPERATOR Work Phone: [facility] 05-07-2022 10:25-0500 Heart rate 103 /min Pari Boo [employer]LITE GR[employer]ER.AIR SUPPORT OPERATIONS OPERATOR Work Phone: [facility] 05-07-2022 10:25-0500 Respiratory rate 18 /min Pari Boo PERLITE GRINDER.AIR SUPPORT OPERATIONS OPERATOR Work Phone: [facility] 05-07-2022 10:25-0500 SaO2% (BldA) [Mass fraction] 98 % Pari Boo PERLITE GR[employer]ER.AIR SUPPORT OPERATIONS OPERATOR Work Phone: [facility] 05-07-2022 10:25-0500 Systolic blood pressure 118 mm[Hg] Prai Boo [employer]LITE GRINDER.AIR SUPPORT OPERATIONS OPERATOR Work Phone: [facility] 12-10-2021 15:46-0400 Diastolic Blood Pressure NBP 81 1 LYRIC THAPA MD [facility] 12-10-2021 15:46-0400 Heart rate 78 /min LYRIC THAPA MD [facility] 12-10-2021 15:46-0400 Respiratory rate 16 /min LYRIC THAPA MD [facility] 12-10-2021 15:46-0400 Systolic Blood Pressure NBP 108 1 LYRIC THAPA MD [facility] 12-10-2021 15:15-0400 Diastolic Blood Pressure NBP 68 1 LYRIC THAPA MD [facility] 12-10-2021 15:15-0400 Heart rate 86 /min LYRIC THAPA MD [facility] 12-10-2021 15:15-0400 Respiratory rate 17 /min LYRIC THAPA MD [facility] 12-10-2021 15:15-0400 Systolic Blood Pressure NBP 112 1 LYRIC THAPA MD [facility] 12-10-2021 14:54-0400 Diastolic Blood Pressure NBP 77 1 LYRIC THAPA MD [facility] 12-10-2021 14:54-0400 Heart rate 90 /min LYRIC THAPA MD [facility] 12-10-2021 14:54-0400 Respiratory rate 19 /min LYRIC THAPA MD [facility] 12-10-2021 14:54-0400 Systolic Blood Pressure NBP 118 1 LYRIC THAPA MD [facility] 12-10-2021 14:25-0400 Body temperature 96.62 [degF] LYRIC THAPA MD [facility] 12-10-2021 11:09-0400 Body height 162.6 cm LYRIC THAPA MD [facility] 12-10-2021 11:09-0400 Body temperature 97.52 [degF] LYRIC THAPA MD [facility] 12-10-2021 11:09-0400 Body weight 108 kg LYRIC THAPA MD [facility] 12-10-2021 11:09-0400 Heart rate 94 /min LYRIC THAPA MD [facility] 12-08-2021 13:05-0400 Body height 162.6 cm LYRIC THAPA MD [facility] 12-08-2021 13:05-0400 Body weight 108 kg LYRIC THAPA MD [facility] 12-08-2021 13:05-0400 Body weight 40.85 kg/m2 LYRIC THAPA MD [facility] 12-08-2021 13:05-0400 diastolic 70 mm[Hg] LYRIC THAPA MD [facility] 12-08-2021 13:05-0400 Heart rate 83 /min LYRIC THAPA MD [facility] 12-08-2021 13:05-0400 systolic 112 mm[Hg] LYRIC THAPA MD [facility] 11-27-2021 16:18-0400 Body height 162.56 cm [facility] Work Phone: 11-27-2021 16:18-0400 Body mass index (BMI) [Ratio] 41.7 kg/m2 [facility] Work Phone: 11-27-2021 16:18-0400 Body temperature 97.4 [degF] [facility] Work Phone: 11-27-2021 16:18-0400 Body weight 110.22 kg [facility] Work Phone: 11-27-2021 16:18-0400 Diastolic blood pressure 98 mm[Hg] [facility] Work Phone: 11-27-2021 16:18-0400 Heart rate 109 /min [facility] Work Phone: 11-27-2021 16:18-0400 Respiratory rate 18 /min [facility] Work Phone: 11-27-2021 16:18-0400 SaO2% (BldA) [Mass fraction] 99 % [facility] Work Phone: 11-27-2021 16:18-0400 Systolic blood pressure 137 mm[Hg] [facility] Work Phone: Encounters Encounter Date Encounter Type Care Provider Facility Start: 01-28-2025 ambulatory Pari Lara Facilit y:[facility] Start: 08-08-2024 End: 08-08-2024 ambulatory NONE PHYSICIAN Facility:A Start: 08-08-2024 End: 08-08-2024 Patient encounter procedure LYRIC THAPA MD [facility] Start: 04-23-2024 End: 04-23-2024 Patient encounter procedure Pari Boo APRN.AIR SUPPORT OPERATIONS OPERATOR Work Phone: [facility] Comment on above: Rhinosinusitis (Prim fritz Dx); Acute cough Start: 04-23-2024 End: 04-23-2024 ambulatory Facility:[facility] Start: 03-15-2024 End: 03-15-2024 Admission to same day surgery center LYRIC THAPA MD [facility] Start: 03-15-2024 End: 03-15-2024 ambulatory NONE PHYSICIAN Facility:[facility] Start: 03-01-2024 End: 03-01-2024 Admission to establishment LYRIC THAPA MD [facility] Start: 03-01-2024 End: 03-01-2024 ambulatory LYRIC THAPA MD Facility:[facility] Start: 02-23-2024 End: 02-23-2024 ambulatory NONE PHYSICIAN Facility:A Start: 02-23-2024 End: 02-23-2024 Patient encounter procedure LYRIC THAPA MD [facility] Start: 02-03-2024 End: 02-03-2024 ambulatory NONE PHYSICIAN Facility:[facility] Start: 02-03-2024 End: 02-03-2024 Patient encounter procedure PARI LARA [employer]ER-[facility] Start: 01-26-2024 End: 01-26-2024 ambulatory NONE PHYSICIAN Facility:A Start: 01-26-2024 End: 01-26-2024 Patient encounter procedure LYRIC THAPA MD [facility] Start: 01-19-2024 ambulatory LYRIC THAPA MD Facili ty:A Start: 01-17-2024 End: 01-17-2024 ambulatory PARI LARA [employer]-[facility] Facility:[facility] Start: 01-17-2024 End: 01-17-2024 Patient encounter procedure PARI LARA [employer] Start: 01-16-2024 End: 01-16-2024 ambulatory NONE PHYSICIAN Facility:A Start: 01-16-2024 End: 01-16-2024 Patient encounter procedure LYRIC THAPA MD [facility] Start: 12-06-2023 End: 12-06-2023 ambulatory NONE PHYSICIAN Facility:[facility] Start: 12-06-2023 End: 12-06-2023 Patient encounter procedure JESSICA RAGSDALE PERLITE GRINDER-AIR SUPPORT OPERATIONS OPERATOR [facility] Start: 07-15-2023 End: 07-15-2023 ambulatory NONE PHYSICIAN Facility:[facility] Start: 07-15-2023 End: 07-15-2023 Patient encounter procedure LYRIC THAPA MD [facility] Start: 05-07-2022 End: 05-07-2022 Patient encounter procedure Pari Boo [employer]LITE GRINDER.AIR SUPPORT OPERATIONS OPERATOR Work Phone: [facility] Comment on above: Pharyngitis, unspeci fied etiology (Primary Dx); URI, acute; Otalgia of right ear Start: 12-10-2021 End: 12-10-2021 Manual pelvic examination LYRIC THAPA MD [facility] Start: 12-08-2021 End: 12-08-2021 Admission to establishment LYRIC THAPA MD [facility] Start: 11-27-2021 End: 11-27-2021 Emergency department patient visit [facility] Procedures Date Procedure Procedure Detail Performing Clinician Start: 05-07-2022 STREP A MOLECULAR (POC) Rene styles [employer] GRINDER.AIR SUPPORT OPERATIONS OPERATOR Work Phone: Start: 11-27-2021 CT of abdomen and pelvis without contrast Start: 08-11-2014 History of total hysterectomy Status post total hysterectomy Pari Boo [employer]LITE GR[employer]ER.AIR SUPPORT OPERATIONS OPERATOR Work Phone: Start: 07-14-2014 H/O: hysterectomy S/P laparoscopic hysterectomy Paribraden Boo PERLITE GRINDER.AIR SUPPORT OPERATIONS OPERATOR Work Phone: Cholecystectomy LYRIC THAPA MD Cyst of left ovary (disorder) LYRIC THAPA MD Cyst of right ovary (disorder) LYRIC THAPA MD Hysterectomy LYRIC THAPA MD Myringotomy tube ins erter (physical object) LYRIC THAPA MD Tonsillectomy and adenoidectomy LYRIC THAPA MD Plan of Treatment Date Care Activity Detail Author Start: 01-22-2024 Covid-19 Vaccine ( season) Covid-19 Vaccine ( season) [facility] Start: 01-22-2024 Influenza vaccination Influenza Vacc ine (#1) [facility] Start: 09-29-2023 Urine microalbumin profile [facility] Start: 05-07-2022 End: 05-21-2022 Influenza virus A and B RNA and SARS-CoV-2 (COVID-19) N gene panel - Respiratory specimen by JOCELYN with probe detection COVID WITH FLUA+B, ROUTINE Microbiology Routine Pharyngitis, unspecified etiology URI, acute Expected: 05/07/2022, Expires: 05/21/2022 [facility] Work Phone: Comment on above: Expected: 05/07/2022 , Expires: 05/21/2022 Start: 01-21-2022 Influenza vaccination INFLUENZA (#1) [facility] Start: 05-23-2021 DEPRESSION ASSESSMENT DEPRESSION ASS ESSMENT [facility] Start: 2014 PAP TESTING PAP TESTING [facility] Start: 2014 Screening for malign ant neoplasm of cervix Cervical Cancer Screening [facility] Start: 2012 Hepatitis B Vaccine (1 of 3 - 19+ 3-dose series) Hepatitis B Vaccine (1 of 3 - 19+ 3-dose series) [facility] Start: 2011 ANNUAL PCP TEAM CONSUMER B[employer]ER SYLWIA DISEASE VISIT ANNUAL PCP TEAM CHRONIC DISEASE VISIT [facility] Start: 2011 Anxiety Screening Anxiety Screening [facility] Start: 2011 Depression Screening Depression Scre ening [facility] Start: 2011 SPIROMETRY SPIROMETRY [facility] Start: 1999 PNEUMOCOCCAL (1 - PCV) PNEUMOCOCCAL (1 - PCV) [facility] Start: 1993 COVID-19 VACCINE (#1) COVID-19 VACCI NE (#1) [facility] Start: 1993 HEPATITIS B (1 of 3 - 3-dose series) HEPATITIS B (1 of 3 - 3-dose series) [facility] Patient Education ED Abdominal P ain Unkn Cause Fem ED Dysuria, Uncertain Cause (Adult) [facility] Work Phone: Patient referral [facility] Work Phone: Immunizations Immunization Date Immunization Notes Care Provider Priscilla lua 09-28-2013 tetanus toxoid, redu lily diphtheria toxoid, and acellular pertussis vaccine, adsorbed Pari Boo PERLITE GRINDER.AIR SUPPORT OPERATIONS OPERATOR Work Phone: [facility] 03-19-2013 influenza virus vacc ine, unspecified formulation Pari Boo PERLITE GRINDER.AIR SUPPORT OPERATIONS OPERATOR Work Phone: [facility] 04-08-2008 influenza virus vacc ine, unspecified formulation Pari Boo PERLITE GRINDER.AIR SUPPORT OPERATIONS OPERATOR Work Phone: [facility] Payers Date Payer Category Payer Self-pay 2018 Unknown [id number] 2018 Unknown [id number] 2014 Unknown [facility] [id number] 1993 Unknown [id number] 2.16.8 [id number] 1993 Unknown [id number] 2.16.8 [id number] 1993 Unknown [id number] 2.16.8 [id number] 1993 Unknown [id number] 2.16.8 [id number] 1993 Unknown [id number] 2.16.8 [id number] 1993 Unknown [id number] 2.16.8 [id number] 1993 Unknown [id number] 2.16.8 [id number] 1993 Unknown [id number] 2.16.8 [id number] 1993 Unknown [id number] 2.16.8 [id number] 1993 Unknown [id number] 2.16.8 [id number] 1993 Unknown [id number] 2.16.8 [id number] 1993 Unknown [id number] 2.16.8 [id number] Unknown [id number] 2.16.8 [id number] Social History Date Type Detail Facility [facility] Work Phone: Start: 11-27-2021 [facility] Work Phone: Start: 1995 Sex Assigned At Female [facility] Work Phone: Start: 12-03-2021 End: 05-07-2022 Tobacco smoking status Never smoked tobacco (finding) [facility] Sex Assigned At [facility] Start: 05-07-2022 Tobacco use and exposure Smokeless tobacco non-user [facility] Start: 05-07-2022 End: 04-23-2024 Alcohol intake Current non-drinker of alcohol (finding) [facility] Start: 05-07-2022 Tobacco Comment mother smokes outsid e [facility] Start: 1995 Sex Assigned At Not on file [facility] Start: 04-28-2020 End: 04-23-2024 History of Social function [facility] Start: 04-28-2020 End: 04-23-2024 Tobacco use panel [facility] National Score (1-100), lower number is lower risk Not on file [facility] Sex Female (finding) Reshma Indra maynard Functional Status Date Assessment Result Facility 03-15-2024 Functional Status Up to chair [facility] 03-15-2024 Functional Status bilateral knee high applied/on [facility] 03-15-2024 Functional Status Maintained [facility] 03-01-2024 Functional Status Sensory Deficits None A [facility] 12-10-2021 Functional Status Up to bathroom [facility] 12-10-2021 Functional Status [facility] 12-10-2021 Functional Status Maintained [facility] 12-08-2021 Functional Status Sensory Deficits None A [facility] Mental Status Date Assessment Result Facility 03-15-2024 Mental Status Orientation Oriented x 4 [facility] 03-15-2024 Mental Status [facility] 12-10-2021 Mental Status Orientation Oriented x 4 [facility] 12-10-2021 Mental Status [facility] Clinical Notes 09-13-2013 to 04-23-2024 Pari Boo APRN.CNP - 04/23/2024 12:31 PM EST Note Date & Type Note Facility 04-23-2024 Note HNO ID: [id number] Author: PARI BOO APRN.AIR SUPPORT OPERATIONS OPERATOR Service: ? Author Type: Nurse Practitioner Type: Progress Notes Filed: 04/23/2024 12:57 Note Text: This note was created using NoteWriter. Subjective Elmo Nuno is a 29 year old female. 29 year old female with PMH asthma (well controlled, citing she has not had inhaler since high school), migraine presents for illness Acute onset 2 weeks ago +cough +productive +sinus pressure +congestion +chills +fever Denies dyspnea Denies CP Denies SOB Has used OTC medicines Denies tobacco usage +ill contacts The history is provided by the patient. No application support lead was used. Cough This is a new problem. The current episode started more than 1 week ago. The problem occurs constantly. The problem has been gradually worsening. The cough is Productive of sputum. There has been no fever. Associated symptoms include chills, ear congestion and rhinorrhea. Pertinent negatives include no chest pain, no sweats, no weight loss, no ear pain, no headaches, no sore throat, no myalgias, no shortness of breath, no wheezing and no eye redness. She has tried nothing for the symptoms. She is not a smoker. Her past medical history is significant for asthma. Her past medical history does not include bronchitis, pneumonia, bronchiectasis, COPD or emphysema. PAST MEDICAL HISTORY Diagnosis Date Asthma controlled Endometriosis 05/2014 STAGE 2 Endometriosis 08/11/2014 PMH - PAST MEDICAL HISTORY OF primary dysmenorea Polycystic ovarian disease Psychiatric disorder Depression Rheumatoid arthritis(714.0) dx at age 3 S/P laparoscopic hysterectomy 07/14/2014 S/P total hysterectomy 05/2014 Status post total hysterectomy 08/11/2014 PAST SURGICAL HISTORY Procedure Laterality Date EXTRACTION, ERUPTED TOOTH OR EXPOSED ROOT (ELEVATION AND/OR FORCEPS REMOVAL) LAPAROSCOPY W TOTAL HYSTERECTOMY UTERUS 250 GM/< 05/2014 LAPS SURG CHOLECYSTECTOMY W/CHOLANGIOGRAPHY 05/19/2010 OVARIAN CYSTECTOMY 11/2011 laprascopic right cystectomy TONSILLECTOMY PRIMARY/SECONDARY Tonsillectomy age 3 ALLERGIES Acetaminophen-Codeine, Adhesive Tape (Rosins), Doxycycline, Hibiclens [Chlorhexidine Gluconate], and Penicillins MEDICATIONS estradiol (ESTRACE) 2 mg tablet 2 mg. azithromycin (ZITHROMAX Z-ARELIS) 250 mg tablet Take 2 tablets day one, then, 1 tablet daily until gone. predniSONE (DELTASONE) 10 mg tablet Take 4 tabs daily for 3 days, then 2 tabs daily for 3 days, then 1 tab daily for 3 days with food. predniSONE (DELTASONE) 10 mg tablet Take 4 tabs daily for 3 days, then 2 tabs daily for 3 days, then 1 tab daily for 3 days with food. (Patient not taking: Reported on 04/23/2024) guaiFENesin (MUCINEX) 600 mg 12 hr tablet Take 2 tablets by mouth twice daily. (Patient not taking: Reported on 04/23/2024) benzonatate (TESSALON PERLES) 100 mg capsule Take 1 capsule by mouth three times daily as needed. (Patient not taking: Reported on 05/07/2022) oxymetazoline (AFRIN, OXYMETAZOLINE,) 0.05 % nasal spray Use 2 Sprays in the nose twice daily. (Patient not taking: Reported on 04/23/2024) albuterol HFA (PROVENTIL HFA, VENTOLIN HFA) 90 mcg/actuation inhaler Inhale 2 Puffs as instructed every 4 hours as needed. (Patient not taking: Reported on 04/23/2024) pseudoephedrine-guaiFENesin (,MUCINEX-D,) 60-600 mg per tablet Take 1 tablet by mouth every 12 hours. (Patient not taking: Reported on 08/01/2019 ) clotrimazole-betamethasone (LOTRISONE) cream Apply 1 application to affected area twice daily. Apply for 14 days. (Patient not taking: Reported on 06/12/2018 ) docusate sodium (COLACE) 100 mg capsule Take 1 capsule by mouth twice daily. (Patient not taking: Reported on 06/12/2018 ) ibuprofen (MOTRIN) 600 mg tablet Take 1 tablet by mouth four times daily as needed. (Patient not taking: Reported on 08/01/2019 ) FAMILY HISTORY Problem Relation Age of Onset Asthma Mother Asthma Maternal Grandmother Heart Maternal Grandfather Ischemic Heart Disease Maternal Grandfather Ischemic Heart Disease Father Heart Father Diabetes Maternal Grandmother Diabetes Father Colon Cancer Paternal Grandfather Colon Cancer Father Diabetes Paternal Uncle Heart Paternal Uncle Heart Maternal Uncle Social History Tobacco Use Smoking status: Never Smokeless tobacco: Never Tobacco comments: mother smokes outside Substance Use Topics Alcohol use: No Drug use: No Review of Systems Constitutional: Positive for chills. Negative for fatigue, fever and weight loss. HENT: Positive for congestion, rhinorrhea, sinus pressure and sinus pain. Negative for ear pain and sore throat. Eyes: Negative for pain, discharge, redness and itching. Respiratory: Positive for cough. Negative for apnea, chest tightness, shortness of breath and wheezing. Cardiovascular: Negative for chest pain. Gastrointestinal: Negative for abdominal pain, diarrhea, nausea (more content not included)... [facility] 04-23-2024 History of Present illness Narrative This note was created using [employer]ter. Subjective Elmo Nuno is a 29 year old female. 29 year old female with PMH asthma (well controlled, citing she has not had inhaler since high school), migraine presents for illness Acute onset 2 weeks ago +cough +productive +sinus pressure +congestion +chills +fever Denies dyspnea Denies CP Denies SOB Has used OTC medicines Denies tobacco usage +ill contacts The history is provided by the patient. No application support lead was used. Cough This is a new problem. The current episode started more than 1 week ago. The problem occurs constantly. The problem has been gradually worsening. The cough is Productive of sputum. There has been no fever. Associated symptoms include chills, ear congestion and rhinorrhea. Pertinent negatives include no chest pain, no sweats, no weight loss, no ear pain, no headaches, no sore throat, no myalgias, no shortness of breath, no wheezing and no eye redness. She has tried nothing for the symptoms. She is not a smoker. Her past medical history is significant for asthma. Her past medical history does not include bronchitis, pneumonia, bronchiectasis, COPD or emphysema. PAST MEDICAL HISTORY Diagnosis Date Asthma controlled Endometriosis 05/2014 STAGE 2 Endometriosis 08/11/2014 PMH - PAST MEDICAL HISTORY OF primary dysmenorea Polycystic ovarian disease Psychiatric disorder Depression Rheumatoid arthritis(714.0) dx at age 3 S/P laparoscopic hysterectomy 07/14/2014 S/P total hysterectomy 05/2014 Status post total hysterectomy 08/11/2014 PAST SURGICAL HISTORY Procedure Laterality Date EXTRACTION, ERUPTED TOOTH OR EXPOSED ROOT (ELEVATION AND/OR FORCEPS REMOVAL) LAPAROSCOPY W TOTAL HYSTERECTOMY UTERUS 250 GM/< 05/2014 LAPS SURG CHOLECYSTECTOMY W/CHOLANGIOGRAPHY 05/19/2010 OVARIAN CYSTECTOMY 11/2011 laprascopic right cystectomy TONSILLECTOMY PRIMARY/SECONDARY <AGE 10 Tonsillectomy age 3 ALLERGIES Acetaminophen-Codeine, Adhesive Tape (Rosins), Doxycycline, Hibiclens [Chlorhexidine Gluconate], and Penicillins MEDICATIONS estradiol (ESTRACE) 2 mg tablet 2 mg. azithromycin (ZITHROMAX Z-ARELIS) 250 mg tablet Take 2 tablets day one, then, 1 tablet daily until gone. predniSONE (DELTASONE) 10 mg tablet Take 4 tabs daily for 3 days, then 2 tabs daily for 3 days, then 1 tab daily for 3 days with food. predniSONE (DELTASONE) 10 mg tablet Take 4 tabs daily for 3 days, then 2 tabs daily for 3 days, then 1 tab daily for 3 days with food. (Patient not taking: Reported on 04/23/2024) guaiFENesin (MUCINEX) 600 mg 12 hr tablet Take 2 tablets by mouth twice daily. (Patient not taking: Reported on 04/23/2024) benzonatate (TESSALON PERLES) 100 mg capsule Take 1 capsule by mouth three times daily as needed. (Patient not taking: Reported on 05/07/2022) oxymetazoline (AFRIN, OXYMETAZOLINE,) 0.05 % nasal spray Use 2 Sprays in the nose twice daily. (Patient not taking: Reported on 04/23/2024) albuterol HFA (PROVENTIL HFA, VENTOLIN HFA) 90 mcg/actuation inhaler Inhale 2 Puffs as instructed every 4 hours as needed. (Patient not taking: Reported on 04/23/2024) pseudoephedrine-guaiFENesin (,MUCINEX-D,) 60-600 mg per tablet Take 1 tablet by mouth every 12 hours. (Patient not taking: Reported on 08/01/2019 ) clotrimazole-betamethasone (LOTRISONE) cream Apply 1 application to affected area twice daily. Apply for 14 days. (Patient not taking: Reported on 06/12/2018 ) docusate sodium (COLACE) 100 mg capsule Take 1 capsule by mouth twice daily. (Patient not taking: Reported on 06/12/2018 ) ibuprofen (MOTRIN) 600 mg tablet Take 1 tablet by mouth four times daily as needed. (Patient not taking: Reported on 08/01/2019 ) FAMILY HISTORY Problem Relation Age of Onset Asthma Mother Asthma Maternal Grandmother Heart Maternal Grandfather Ischemic Heart Disease Maternal Grandfather Ischemic Heart Disease Father Heart Father Diabetes Maternal Grandmother Diabetes Father Colon Cancer Paternal Grandfather Colon Cancer Father Diabetes Paternal Uncle Heart Paternal Uncle Heart Maternal Uncle Social History Tobacco Use Smoking status: Never Smokeless tobacco: Never Tobacco comments: mother smokes outside Substance Use Topics Alcohol use: No Drug use: No Review of Systems Constitutional: Positive for chills. Negative for fatigue, fever and weight loss. HENT: Positive for congestion, rhinorrhea, sinus pressure and sinus pain. Negative for ear pain and sore throat. Eyes: Negative for pain, discharge, redness and itching. Respiratory: Positive for cough. Negative for apnea, chest tightness, shortness of breath and wheezing. Cardiovascular: Negative for chest pain. Gastrointestinal: Negative for abdominal pain, diarrhea, nausea and vomiting. Musculoskeletal: Negative for back pain, gait problem and myalgias. Skin: Negative for color change, pallor, rash and wound. Allergic/Immunologic: Negative for environmental allergies, food allergies and immunocompromised state. Neurological: Negative for dizziness, facial asymmetry, light-headedness, numbness and headaches. Hematological: Negative for adenopathy. Does not bruise/bleed easily. Psychiatric/Behavioral: Negative for agitation and behavioral problems. Objective BP 118/76 Pulse 99 Temp 37.2 C (98.9 F) (Tympanic) Resp 18 Wt 116.8 kg (257 lb 8 oz) LMP 05/16/2014 SpO2 98% BMI 44.20 kg/m Physical Exam Vitals and nursing note reviewed. Constitutional: General: She is not in acute distress. Appearance: Normal appearance. She is normal weight. She is not ill-appearing, toxic-appearing or diaphoretic. HENT: Head: Normocephalic and atraumatic. Comments: +frontal sinus pressure +maxillary sinus pressure Right Ear: Ear canal and external ear normal. Left Ear: Ear canal and external ear normal. Nose: Congestion present. No rhinorrhea. Mouth/Throat: Mouth: Mucous membranes are moist. Pharynx: Posterior oropharyngeal erythema present. No oropharyngeal exudate. Eyes: General: Right eye: No discharge. Left eye: No discharge. Extraocular Movements: Extraocular movements intact. Conjunctiva/sclera: Conjunctivae normal. Pupils: Pupils are equal, round, and reactive to light. Cardiovascular: Rate and Rhythm: Normal rate and regular rhythm. Pulses: Normal pulses. Heart sounds: Normal heart sounds. No murmur heard. No friction rub. Pulmonary: Effort: Pulmonary effort is normal. No respiratory distress. Breath sounds: Normal breath sounds. No stridor. No wheezing, rhonchi or rales. Chest: Chest wall: No tenderness. Abdominal: General: Abdomen is flat. There is no distension. Palpations: Abdomen is soft. There is no mass. Tenderness: There is no abdominal tenderness. There is no right CVA tenderness, left CVA tenderness, guarding or rebound. Hernia: No hernia is present. Musculoskeletal: General: No swelling, tenderness, deformity or signs of injury. Normal range of motion. Cervical back: Normal range of motion and neck supple. No rigidity. Right lower leg: No edema. Left lower leg: No edema. Lymphadenopathy: Cervical: Cervical adenopathy present. Skin: General: Skin is warm and dry. Capillary Refill: Capillary refill takes less than 2 seconds. Coloration: Skin is not jaundiced or pale. Findings: No bruising, erythema, lesion or rash. Neurological: General: No focal deficit present. Mental Status: She is alert and oriented to person, place, and time. Cranial Nerves: No cranial nerve deficit. Sensory: No sensory deficit. Motor: No weakness. Coordination: Coordination normal. Gait: Gait normal. Psychiatric: Mood and Affect: Mood normal. Behavior: Behavior normal. Thought Content: Thought content normal. Judgment: Judgment normal. Assessment and Plan ASSESSMENT/PLAN: 1. Rhinosinusitis - ICD9: 473.9, ICD10: J32.9 (primary diagnosis) - Will begin treatment with as per antibiotic as written, see orders - The patient should also be given OTC cough and cold meds as needed, warm salt water gargles, throat lozenges and/or OTC throat spray as needed, and nasal saline gtts and suction prn for the first 5-7 days of treatment. - Supportive care with plenty of fluids, rest, and analgesia prn. - Follow up in 3-5 days if symptoms persist or worsen. 2. 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 HISTORY OF PRESENT ILLNESS: Elmo has been experiencing right pelvic pain. She in the past had a laparoscopic assisted hysterectomy and left oophorectomy. She is being followed for possible hemorrhagic cyst of the right ovary. She has a history of endometriosis. REVIEW OF SYSTEMS: Right lower pelvic pain. Review of systems otherwise unremarkable ACTIVE PROBLEMS: (5) Breast pain, right ([id number]) Encounter for annual routine gynecological examination ([id number]) History of endometriosis (6600339536) Pelvic pain ([id number]) S/P laparoscopy ([id number]) MEDICATIONS: Active Inpt Meds: clindamycin (Cleocin Phosphate) Start: 03/15/24 6:00:00 EDT, Dose = 900 mg, = 50 mL, IV Piggyback, PREOP pharm, Stop: 03/15/24 23:59:00 EDT, Rate: 100 mL/hr, Infuse over: 30 minute(s), 0 gentamicin (Garamycin) Start: 03/15/24 6:00:00 EDT, Dose = 640 mg, = 16 mL, IV Piggyback, PREOP pharm, Stop: 03/15/24 23:59:00 EDT, Rate: 132 mL/hr, Infuse over: 30 minute(s), 0 Active PRN Meds: None One Time Meds: None Active IV Meds: None ALLERGIES: (3) chlorhexidine topical codeine penicillin FAMILY HISTORY: No specific family history pertaining to this admission. No history of ovarian cancer. SOCIAL HISTORY: Non-smoker no alcohol use no toxic habits. PHYSICAL EXAM: VITALS: [id number](kg) 03/15 06:1236.6--[id number]/01755.3 24 Hr Tmax: 36.6 at 03/15 06:12 36 Hr Tmax: 36.6 at 03/15 06:12 Vital Signs are the last 5 in the past 48 hours. Weights display the last 5 within 7 days. Initial Wt: 03/15 127.3 kg 280 lb Current Wt: 03/15 127.3 kg 280 lb GENERAL: Overweight but appears well HEENT: Normocephalic CARDIOVASCULAR: Regular rate and rhythm normal blood pressure RESPIRATORY: Clear bilaterally ABDOMEN: Soft nontender no masses EXREMETIES: No edema NEUROLOGICAL: Intact PSYCHIATRIC: No signs of acute depression or anxiety LABS: No 36hr Lab Data DIAGNOSTICS: Latest ultrasound shows a normal-appearing right ovary. No free fluid. IMPRESSION: Chronic right lower pelvic pain possibly related to hemorrhagic cyst. Has had hysterectomy in the past. PLAN: Options were presented to the patient including using OCPs to control ovulation which may decrease the risk of future ovarian cyst. Other option included right oophorectomy. As she has had a previous hysterectomy with left oophorectomy performing a right oophorectomy will place her immediately in surgical menopause. This was discussed with the patient and given remoteness from menopause will need estrogen replacement therapy after surgery. Procedures, risks, and postoperative expectations were reviewed with the patient. All questions were answered and consents were obtained. Future Scheduled Tests Laboratory* Pathology Timber Framer Request 06/16/23 * Thyroid Stimulating Hormone 06/16/23 * Free T4 06/16/23 * A1C Hemoglobin 06/16/23 * Free T3 06/16/23 * Glucose Level 06/16/23 Radiology* MRI Pelvis w/ + w/o Contrast 01/26/24 * US Breast Right Complete 06/20/23 [facility] 10-24-2024 Hospital Discharge instructions Patient Education 03/15/2024 08:52:44 Deep Vein Thrombosis Deep Vein Thrombosis Deep vein thrombosis (DVT) is a condition in which a blood clot forms in a deep vein, such as a lower leg, thigh, or arm vein. A clot is blood that has thickened into a gel or solid. This condition is dangerous. It can lead to serious and even life-threatening complications if the clot travels to the lungs and causes a blockage (pulmonary embolism). It can also damage veins in the leg. This can result in leg pain, swelling, discoloration, and sores (post-thrombotic syndrome). What are the causes? This condition may be caused by: A slowdown of blood flow. Damage to a vein. A condition that causes blood to clot more easily, such as an inherited clotting disorder. What increases the risk? The following factors may make you more likely to develop this condition: Being overweight. Being older, especially over age 60. Sitting or lying down for more than four hours. Being in the hospital. Lack of physical activity (sedentary lifestyle). , being in childbirth, or having recently given . Taking medicines that contain estrogen, such as medicines to prevent . Smoking. A history of any of the following: ?Blood clots or a blood clotting disease. ?Peripheral vascular disease. ?Inflammatory bowel disease. ?Cancer. ?Heart disease. ?Genetic conditions that affect how your blood clots, such as Factor V Leiden mutation. ?Neurological diseases that affect your legs (leg paresis). ?A recent injury, such as a car accident. ?Major or lengthy surgery. ?A central line placed inside a large vein. What are the signs or symptoms? Symptoms of this condition include: Swelling, pain, or tenderness in an arm or leg. Warmth, redness, or discoloration in an arm or leg. If the clot is in your leg, symptoms may be more noticeable or worse when you stand or walk. Some people may not develop any symptoms. How is this diagnosed? This condition is diagnosed with: A medical history and physical exam. Tests, such as: ?Blood tests. These are done to check how well your blood clots. ?Ultrasound. This is done to check for clots. ?Venogram. For this test, contrast dye is injected into a vein and X-rays are taken to check for any clots. How is this treated? Treatment for this condition depends on: The cause of your DVT. Your risk for bleeding or developing more clots. Any other medical conditions that you have. Treatment may include: Taking a blood thinner (anticoagulant). This type of medicine prevents clots from forming. It may be taken by mouth, injected under the skin, or injected through an IV (catheter). Injecting clot-dissolving medicines into the affected vein (catheter-directed thrombolysis). Having surgery. Surgery may be done to: ?Remove the clot. ?Place a filter in a large vein to catch blood clots before they reach the lungs. Some treatments may be continued for up to six months. Follow these instructions at home: If you are taking blood thinners: Take the medicine exactly as told by your health care provider. Some blood thinners need to be taken at the same time every day. Do not skip a dose. Talk with your health care provider before you take any medicines that contain aspirin or NSAIDs. These medicines increase your risk for dangerous bleeding. Ask your health care provider about foods and drugs that could change the way the medicine works (may interact). Avoid those things if your health care provider tells you to do so. Blood thinners can cause easy bruising and may make it difficult to stop bleeding. Because of this: ?Be very careful when using knives, scissors, or other sharp objects. ?Use an electric razor instead of a blade. ?Avoid activities that could cause injury or bruising, and follow instructions about how to preventfalls. Wear a medical alert bracelet or carry a card that lists what medicines you take. General instructions Take hdng-ygz-vzxheqd and prescription medicines only as told by your health care provider. Return to your normal activities as told by your health care provider. Ask your health care provider what activities are safe for you. Wear compression stockings if recommended by your health care provider. Keep all follow-up visits as told by your health care provider. This is important. How is this prevented? To lower your risk of developing this condition again: For 30 or more minutes every day, do an activity that: ?Involves moving your arms and legs. ?Increases your heart rate. When traveling for longer than four hours: ?Exercise your arms and legs every hour. ?Drink plenty of water. ?Avoid drinking alcohol. Avoid sitting or lying for a long time without moving your legs. If you have surgery or you are hospitalized, ask about ways to prevent blood clots. These may include taking frequent walks or using anticoagulants. Stay at a healthy weight. If you are a woman who is older than age 35, avoid unnecessary use of medicines that contain estrogen, such as some control pills. Do not use any products that contain nicotine or tobacco, such as cigarettes and e-cigarettes. Thisis especially important if you take estrogen medicines. If you need help quitting, ask your health care provider. Contact a health care provider if: You miss a dose of your blood thinner. Your menstrual period is heavier than usual. You have unusual bruising. Get help right away if: You have: ?New or increased pain, swelling, or redness in an arm or leg. ?Numbness or tingling in an arm or leg. ?Shortness of breath. ?Chest pain. ?A rapid or irregular heartbeat. ?A severe headache or confusion. ?A cut that will not stop bleeding. There is blood in your vomit, stool, or urine. You have a serious fall or accident, or you hit your head. You feel light-headed or dizzy. You cough up blood. These symptoms may represent a serious problem that is an emergency. Do not wait to see if the symptoms will go away. Get medical help right away. Call your local emergency services (911 in the [place] Do not drive yourself to the hospital. Summary Deep vein thrombosis (DVT) is a condition in which a blood clot forms in a deep vein, such as a lower leg, thigh, or arm vein. Symptoms can include swelling, warmth, pain, and redness in your leg or arm. This condition may be treated with a blood thinner (anticoagulant medicine), medicine that is injected to dissolve blood clots,compression stockings, or surgery. If you are prescribed blood thinners, take them exactly as told. This information is not intended to replace advice given to you by your health care provider. Make sure you discuss any questions you have with your health care provider. Document Released: 05/09/2006 Document Revised: 04/21/2018 Document Reviewed: 10/07/2017 [employer] Patient Education 2020 [employer] 03/15/2024 08:52:24 Nausea and Vomiting, Adult, [id number] Nausea and Vomiting, Adult Nausea is feeling sick to your stomach or feeling that you are about to throw up (vomit). Vomiting is when food in your stomach is thrown up and out of the mouth. Throwing up can make you feel weak. It can also make you lose too much water in your body (get dehydrated). If you lose too much water in your body, you may: Feel tired. Feel thirsty. Have a dry mouth. Have cracked lips. Go pee (urinate) less often. Older adults and people with other diseases or a weak body defense system (immune system) are at higher risk for losing too much water in the body. If you feel sick to your stomach and you throw up, it is important to follow instructions from your doctor about how to take care of yourself. Follow these instructions at home: Watch your symptoms for any changes. Tell your doctor about them. Follow these instructions to carefor yourself at home. Eating and drinking Take an ORS (oral rehydration solution). This is a drink that is sold at pharmacies and stores. Drink clear fluids in small amounts as you are able, such as: ?Water. ?Ice chips. ?Fruit juice that has water added (diluted fruit juice). ?Low-calorie sports drinks. Eat bland, qzdj-sh-inunze foods in small amounts as you are able, such as: ?Bananas. ?Applesauce. ?Rice. ?Low-fat (lean) meats. ?Dougherty. ?Crackers. Avoid drinking fluids that have a lot of sugar or caffeine in them. This includes energy drinks, sports drinks, and soda. Avoid alcohol. Avoid spicy or fatty foods. General instructions Take hfrk-ohr-cuvqoql and prescription medicines only as told by your doctor. Drink enough fluid to keep your pee (urine) pale yellow. Wash your hands often with soap and water. If you cannot use soap and water, use hand application engineer. Make sure that all people in your home wash their hands well and often. Rest at home while you get better. Watch your condition for any changes. Take slow and deep breaths when you feel sick to your stomach. Keep all follow-up visits as told by your doctor. This is important. Contact a doctor if: Your symptoms get worse. You have new symptoms. You have a fever. You cannot drink fluids without throwing up. You feel sick to your stomach for more than 2 days. You feel light-headed or dizzy. You have a headache. You have muscle cramps. You have a rash. You have pain while peeing. Get help right away if: You have pain in your chest, neck, arm, or jaw. You feel very weak or you pass out (faint). You throw up again and again. You have throw up that is bright red or looks like black coffee grounds. You have bloody or black poop (stools) or poop that looks like tar. You have a very bad headache, a stiff neck, or both. You have very bad pain, cramping, or bloating in your belly (abdomen). You have trouble breathing. You are breathing very quickly. Your heart is beating very quickly. Your skin feels cold and clammy. You feel confused. You have signs of losing too much water in your body, such as: ?Dark pee, very little pee, or no pee. ?Cracked lips. ?Dry mouth. ?Sunken eyes. ?Sleepiness. ?Weakness. These symptoms may be an emergency. Do not wait to see if the symptoms will go away. Get medical help right away. Call your local emergency services (911 in the [place] Do not drive yourself to the hospital. Summary Nausea is feeling sick to your stomach or feeling that you are about to throw up (vomit). Vomiting is when food in your stomach is thrown up and out of the mouth. Follow instructions from your doctor about eating and drinking to keep from losing too much water in your body. Take pagy-pvw-fjbyydg and prescription medicines only as told by your doctor. Contact your doctor if your symptoms get worse or you have new symptoms. Keep all follow-up visits as told by your doctor. This is important. This information is not intended to replace advice given to you by your health care provider. Make sure you discuss any questions you have with your health care provider. Document Released: 10/25/2008 Document Revised: 08/31/2019 Document Reviewed: 10/17/2018 [employer] Patient Education 2020 [employer]. 03/15/2024 08:51:20 Unilateral Salpingo-Oophorectomy, Care After Unilateral Salpingo-Oophorectomy, Care After This sheet gives you information about how to care for yourself after your procedure. Your health care provider may also give you more specific instructions. If you have problems or questions, contact your health care provider. What can I expect after the procedure? After the procedure, it is common to have: Abdominal pain. Some occasional vaginal bleeding (spotting). Tiredness. Follow these instructions at home: Incision care Keep your incision area and your bandage (dressing) clean and dry. Follow instructions from your health care provider about how to take care of your incision. Make sure you: ?Wash your hands with soap and water before you change your dressing. If soap and water are not available, use hand application engineer. ?Change your dressing as told by your health care provider. ?Leave stitches (sutures), bunny, skin glue, or adhesive strips in place. These skin closures mayneed to stay in place for 2 weeks or longer. If adhesive strip edges start to loosen and curl up, you may trim the loose edges. Do not remove adhesive strips completely unless your health care provider tells you to do that. Check your incision area every day for signs of infection. Check for: ?Redness, swelling, or pain. ?Fluid or blood. ?Warmth. ?Pus or a bad smell. Activity Do not drive or use heavy machinery while taking prescription pain medicine. Do not drive for 24 hours if you received a medicine to help you relax (sedative). Take frequent, short walks throughout the day. Rest when you get tired. Ask your health care provider what activities are safe for you. Avoid activities that require great effort. Also, avoid heavy lifting. Do not lift anything that isheavier than 5 lb (2.3 kg), or the limit that your health care provider tells you, until he or she says that it is safe to do so. Do not douche, use tampons, or have sex until your health care provider approves. General instructions To prevent or treat constipation while you are taking prescription pain medicine, your health care provider may recommend that you: ?Drink enough fluid to keep your urine pale yellow. ?Take ttep-okx-pkybhqh or prescription medicines. ?Eat foods that are high in fiber, such as fresh fruits and vegetables, whole grains, and beans. ?Limit foods that are high in fat and processed sugars, such as fried and sweet foods. Take fhvn-hjs-czurgnr and prescription medicines only as told by your health care provider. Do not take baths, swim, or use a hot tub until your health care provider approves. Ask your healthcare provider if you may take showers. You may only be allowed to take sponge baths. Wear compression stockings as told by your health care provider. These stockings help to prevent blood clots and reduce swelling in your legs. Keep all follow-up visits as told by your health care provider. This is important. Contact a health care provider if: You have pain when you urinate. You have pus or a bad smelling discharge coming from your vagina. You have redness, swelling, or pain around your incision. You have fluid or blood coming from your incision. Your incision feels warm to the touch. You have pus or a bad smell coming from your incision. You have a fever. Your incision starts to break open. You have abdominal pain that gets worse or does not get better with medicine. You develop a rash. You develop nausea and vomiting. You feel lightheaded. Get help right away if: You develop pain in your chest or leg. You develop shortness of breath. You faint. You have increased bleeding from your vagina. Summary After the procedure, it is common to have pain, tiredness, and occasional bleeding from the vagina. Follow instructions from your health care provider about how to take care of your incision. Check your incision every day for signs of infection and report any symptoms to your health care provider. Follow instructions from your health care provider about activities and restrictions. This information is not intended to replace advice given to you by your health care provider. Make sure you discuss any questions you have with your health care provider. Document Released: 03/05/2010 Document Revised: 04/21/2018 Document Reviewed: 08/18/2017 [employer] Patient Education 2020 [employer] 03/15/2024 08:50:07 General Anesthesia, Adult, Care After General Anesthesia, Adult, Care After This sheet gives you information about how to care for yourself after your procedure. Your health care provider may also give you more specific instructions. If you have problems or questions, contact your health care provider. What can I expect after the procedure? After the procedure, the following side effects are common: Pain or discomfort at the IV site. Nausea. Vomiting. Sore throat. Trouble concentrating. Feeling cold or chills. Weak or tired. Sleepiness and fatigue. Soreness and body aches. These side effects can affect parts of the body that were not involved in surgery. Follow these instructions at home: For at least 24 hours after the procedure: Have a responsible adult stay with you. It is important to have someone help care for you until youare awake and alert. Rest as needed. Do not: ?Participate in activities in which you could fall or become injured. ?Drive. ?Use heavy machinery. ?Drink alcohol. ?Take sleeping pills or medicines that cause drowsiness. ?Make important decisions or sign legal documents. ?Take care of children on your own. Eating and drinking Follow any instructions from your health care provider about eating or drinking restrictions. When you feel hungry, start by eating small amounts of foods that are soft and easy to digest (bland), such as toast. Gradually return to your regular diet. Drink enough fluid to keep your urine pale yellow. If you vomit, rehydrate by drinking water, juice, or clear broth. General instructions If you have sleep apnea, surgery and certain medicines can increase your risk for breathing problems. Follow instructions from your health care provider about wearing your sleep device: ?Anytime you are sleeping, including during daytime naps. ?While taking prescription pain medicines, sleeping medicines, or medicines that make you drowsy. Return to your normal activities as told by your health care provider. Ask your health care provider what activities are safe for you. Take cwek-jdu-rdrawxs and prescription medicines only as told by your health care provider. If you smoke, do not smoke without supervision. Keep all follow-up visits as told by your health care provider. This is important. Contact a health care provider if: You have nausea or vomiting that does not get better with medicine. You cannot eat or drink without vomiting. You have pain that does not get better with medicine. You are unable to pass urine. You develop a skin rash. You have a fever. You have redness around your IV site that gets worse. Get help right away if: You have difficulty breathing. You have chest pain. You have blood in your urine or stool, or you vomit blood. Summary After the procedure, it is common to have a sore throat or nausea. It is also common to feel tired. Have a responsible adult stay with you for the first 24 hours after general anesthesia. It is important to have someone help care for you until you are awake and alert. When you feel hungry, start by eating small amounts of foods that are soft and easy to digest (bland), such as toast. Gradually return to your regular diet. Drink enough fluid to keep your urine pale yellow. Return to your normal activities as told by your health care provider. Ask your health care provider what activities are safe for you. This information is not intended to replace advice given to you by your health care provider. Make sure you discuss any questions you have with your health care provider. Document Released: 08/15/2001 Document Revised: 05/12/2018 Document Reviewed: 12/23/2017 [employer] Patient Education 2020 [employer]. 03/15/2024 07:21:19 Menopause and Hormone Replacement Therapy Menopause and Hormone Replacement Therapy Menopause is a normal time of life when menstrual periods stop completely and the ovaries stop producing the female hormones estrogen and progesterone. This lack of hormones can affect your health and cause undesirable symptoms. Hormone replacement therapy (HRT) can relieve some of those symptoms. What is hormone replacement therapy? HRT is the use of artificial (synthetic) hormones to replace hormones that your body has stopped producing because you have reached menopause. What are my options for HRT? HRT may consist of the synthetic hormones estrogen and progestin, or it may consist of only estrogen (estrogen-only therapy). You and your health care provider will decide which form of HRT is best for you. If you choose to be on HRT and you have a uterus, estrogen and progestin are usually prescribed. Estrogen-only therapy is used for women who do not have a uterus. Possible options for taking HRT include: Pills. Patches. Gels. Sprays. Vaginal cream. Vaginal rings. Vaginal inserts. The amount of hormone(s) that you take and how long you take the hormone(s) varies according to your health. It is important to: Begin HRT with the lowest possible dosage. Stop HRT as soon as your health care provider tells you to stop. Work with your health care provider so that you feel informed and comfortable with your decisions. What are the benefits of HRT? HRT can reduce the frequency and severity of menopausal symptoms. Benefits of HRT vary according tothe kind of symptoms that you have, how severe they are, and your overall health. HRT may help to improve the following symptoms of menopause: Hot flashes and night sweats. These are sudden feelings of heat that spread over the face and body.The skin may turn red, like a blush. Night sweats are hot flashes that happen while you are sleeping or trying to sleep. Bone loss (osteoporosis). The body loses calcium more quickly after menopause, causing the bones tobecome weaker. This can increase the risk for bone breaks (fractures). Vaginal dryness. The lining of the vagina can become thin and dry, which can cause pain during sex or cause infection, burning, or itching. Urinary tract infections. Urinary incontinence. This is the inability to control when you pass urine. Irritability. Short-term memory problems. What are the risks of HRT? Risks of HRT vary depending on your individual health and medical history. Risks of HRT also dependon whether you receive both estrogen and progestin or you receive estrogen only. HRT may increase the risk of: Spotting. This is when a small amount of blood leaks from the vagina unexpectedly. Endometrial cancer. This cancer is in the lining of the uterus (endometrium). Breast cancer. Increased density of breast tissue. This can make it harder to find breast cancer on a breast X-ray(mammogram). Stroke. Heart disease. Blood clots. Gallbladder disease. Liver disease. Risks of HRT can increase if you have any of the following conditions: Endometrial cancer. Liver disease. Heart disease. Breast cancer. History of blood clots. History of stroke. Follow these instructions at home: Take uube-tdl-mzlkwdu and prescription medicines only as told by your health care provider. Get mammograms, pelvic exams, and medical checkups as often as told by your health care provider. Have Pap tests done as often as told by your health care provider. A Pap test is sometimes called aPap smear. It is a screening test that is used to check for signs of cancer of the cervix and vagina. A Pap test can also identify the presence of infection or precancerous changes. Pap tests may be done: ?Every 3 years, starting at age 21. ?Every 5 years, starting after age 30, in combination with testing for human papillomavirus (HPV). ?More often or less often depending on other medical conditions you have, your age, and other risk factors. It is up to you to get the results of your Pap test. Ask your health care provider, or the department that is doing the test, when your results will be ready. Keep all follow-up visits as told by your health care provider. This is important. Contact a health care provider if you have: Pain or swelling in your legs. Shortness of breath. Chest pain. Lumps or changes in your breasts or armpits. Slurred speech. Pain, burning, or bleeding when you urinate. Unusual vaginal bleeding. Dizziness or headaches. Weakness or numbness in any part of your arms or legs. Pain in your abdomen. Summary Menopause is a normal time of life when menstrual periods stop completely and the ovaries stop producing the female hormones estrogen and progesterone. Hormone replacement therapy (HRT) can relieve some of the symptoms of menopause. HRT can reduce the frequency and severity of menopausal symptoms. Risks of HRT vary depending on your individual health and medical history. This information is not intended to replace advice given to you by your health care provider. Make sure you discuss any questions you have with your health care provider. Document Released: 02/05/2004 Document Revised: 01/09/2019 Document Reviewed: 01/09/2019 [employer] Patient Education 2020 [employer]. 03/15/2024 07:21:07 Exploratory Laparotomy, Adult, Care After Exploratory Laparotomy, Adult, Care After This sheet gives you information about how to care for yourself after your procedure. Your health care provider may also give you more specific instructions. If you have problems or questions, contact your health care provider. What can I expect after the procedure? After the procedure, it is common to have: Abdominal soreness. Fatigue. A sore throat from the tube in your throat. A lack of appetite. Follow these instructions at home: Medicines Take hfpd-kny-olhxnxe and prescription medicines only as told by your health care provider. If you were prescribed an antibiotic medicine, take it as told by your health care provider. Do notstop taking the antibiotic even if you start to feel better. Do not drive or operate heavy machinery while taking pain medicine. If you are taking prescription pain medicine, take actions to prevent or treat constipation. Your health care provider may recommend that you: ?Drink enough fluid to keep your urine pale yellow. ?Eat foods that are high in fiber, such as fresh fruits and vegetables, whole grains, and beans. ?Limit foods that are high in fat and processed sugars, such as fried or sweet foods. ?Take an tyev-bof-lpknhvv or prescription medicine for constipation. Undergoing surgery and taking pain medicines can make constipation worse. Incision care Follow instructions from your health care provider about how to take care of your incision. Make sure you: ?Wash your hands with soap and water before you change your bandage (dressing). If soap and water are not available, use hand application engineer. ?Change your dressing as told by your health care provider. ?Leave stitches (sutures), skin glue, or adhesive strips in place. These skin closures may need to stay in place for 2 weeks or longer. If adhesive strip edges start to loosen and curl up, you may trim the loose edges. Do not remove adhesive strips completely unless your health care provider tells you to do that. If you were sent home with a drain, follow instructions from your health care provider about how tocare for it. Check your incision area every day for signs of infection. Check for: ?Redness, swelling, or pain. ?Fluid or blood. ?Warmth. ?Pus or a bad smell. Activity Rest as told by your health care provider. ?Avoid sitting for a long time without moving. Get up to take short walks every 1 2 hours. This is important to improve blood flow and breathing. Ask for help if you feel weak or unsteady. Do not lift anything that is heavier than 5 lb (2.2 kg), or the limit that your health care provider tells you, until he or she says that it is safe. Ask your health care provider when you can start to do your usual activities again, such as driving, going back to work, and having sex. Eating and drinking You may eat what you usually eat. Include lots of whole grains, fruits, and vegetables in your diet. This will help to prevent constipation. Drink enough fluid to keep your urine pale yellow. Bathing Keep your incision clean and dry. Clean it as often as told by your health care provider: ?Gently wash the incision with soap and water. ?Rinse the incision with water to remove all soap. ?Pat the incision dry with a clean towel. Do not rub the incision. You may take showers after 48 hours. Do not take baths, swim, or use a hot tub until your health care provider says it is okay to do so. General instructions Do not use any products that contain nicotine or tobacco, such as cigarettes and e-cigarettes. These can delay healing after surgery. If you need help quitting, ask your health care provider. Wear compression stockings as told by your health care provider. These stockings help to prevent blood clots and reduce swelling in your legs. Keep all follow-up visits as told by your health care provider. This is important. Contact a health care provider if: You have a fever. You have chills. Your pain medicine is not helping. You have constipation or diarrhea. You have nausea or vomiting. You have drainage, redness, swelling, or pain at your incision site. Get help right away if: Your pain is getting worse. You have not had a bowel movement for more than 3 days. You have ongoing (persistent) vomiting. The edges of your incision open up. You have warmth, tenderness, and swelling in your calf. You have trouble breathing. You have chest pain. These symptoms may represent a serious problem that is an emergency. Do not wait to see if the symptoms will go away. Get medical help right away. Call your local emergency services (911 in the [place]). Do not drive yourself to the hospital. Summary Abdominal soreness is common after exploratory laparotomy. Take tzun-wxm-euzafzv and prescription pain medicines only as told by your health care provider. Follow instructions from your health care provider about how to take care of your incision. Do not take baths, swim, or use a hot tub until your health care provider says it is okay to do so. Watch for signs and symptoms of infection after surgery, including fever, chills, drainage from your incision, and worsening abdominal pain. This information is not intended to replace advice given to you by your health care provider. Make sure you discuss any questions you have with your health care provider. Document Released: 12/21/2004 Document Revised: 07/02/2019 Document Reviewed: 05/19/2018 [employer] Patient Education 2020 [employer]. Follow Up Care 02/21/2024 09:50:47 With:LYRIC THAPA MD Address: [address] [place] [address] [place] [phone]- [phone] When: Unknown Comments:CALL DR THAPA TO MAKE A FOLLOW UP APPOINTMENT AND WITH ANY QUESTIONS YOU MAY HAVE. GO TO THE EMERGENCY ROOM WITH ANY URGENT CONCERNS. 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 [facility] 10-24-2024 Note Discharge Instructions Thank you for allowing [facility] to assist you with your healthcare needs. The following is importantdischarge information regarding your hospital visit. Your Care Team DR. LYRIC THAPA Your Diagnosis S/P right oophorectomy Pelvic pain S/P laparoscopic surgery What to do next Follow Up Appointments Follow Up with LYRIC THAPA MD Where:[address] [place] [phone] Additional Information: CALL DR THAPA TO MAKE A FOLLOW UP APPOINTMENT AND WITH ANY QUESTIONS YOU MAY HAVE. GO TO THE EMERGENCY ROOM WITH ANY URGENT CONCERNS. 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 Allergies chlorhexidine topical hives codeine hives penicillin hives Medications Please ask your primary doctor or pharmacist before taking any other medication not listed, including over the counter drugs, herbal medications, vitamins and or supplements as they may interact [facility]. What How Much When Why Instructions Last Dose New acetaminophen-oxyCODONE (Percocet 5 mg-325 mg oral tablet) 1 tab(s) by mouth Every 4 hours as needed for as needed for pain S/P right oophorectomy S/P laparoscopic surgery Duration: 7 Days Pickup at [id number] New estradiol (estradiol 2 mg oral tablet) 1 tab(s) by mouth Once a day Duration: 90 Days Refills: 3 Pickup at [id number] New ibuprofen (ibuprofen 600 mg oral tablet) 1 tab(s) by mouth Every 6 hours as needed for for pain Duration: 10 Days Refills: 1 Take with food or milk. Pickup at [facility] Pharmacy Information [id number]: [address] [place], [place] [phone] Please take this list to your next doctor s visit. Bring all medications you take, including over the counter medications, herbals and other supplements with you to your doctor s visit. Patients and families are reminded to discard old lists and to update any records with all medication providers or retail pharmacies. Medication Leaflets estradiol (oral) (ess tra DYE ole) Estrace What is the most important information I should know about estradiol? You should not use this medicine if you have: undiagnosed vaginal bleeding, liver disease, a bleeding disorder, if you will have major surgery, or if you have ever had a heart attack, a stroke, a blood clot, or cancer of the breast, uterus/cervix, or vagina. Do not use if you are . Estradiol may increase your risk of developing a condition that may lead to uterine cancer. Report any unusual vaginal bleeding right away. Using this medicine can increase your risk of blood clots, stroke, heart attack, or cancer of the breast, uterus, or ovaries. Estradiol should not be used to prevent heart disease, stroke, or dementia. What is estradiol? Estradiol is a form of estrogen, a female sex hormone that regulates many processes in the body. Estradiol is used to treat menopause symptoms such as hot flashes and vaginal changes, and to prevent osteoporosis (bone loss) in menopausal women. Estradiol may also be used for purposes not listed in this medication guide. What should I discuss with my healthcare provider before taking estradiol? You should not use this medicine if you are allergic to estradiol, or if you have: unusual vaginal bleeding that has not been checked by a doctor; liver disease; a history of heart attack, stroke, or blood clot; an increased risk of having blood clots due to a heart problem or a hereditary blood disorder; or a history of hormone-related cancer, or cancer of the breast, uterus/cervix, or vagina. Do not use estradiol if you are . Tell your doctor right away if you become duringtreatment. Using this medicine can increase your risk of blood clots, stroke, or heart attack. You are even more at risk if you have high blood pressure, diabetes, high cholesterol, if you are overweight, or ifyou smoke. Estradiol should not be used to prevent heart disease, stroke, or dementia, because this medicine may actually increase your risk of developing these conditions. Tell your doctor if you have ever had: heart disease; liver problems, or jaundice caused by or taking hormones; kidney disease; gallbladder disease; asthma; epilepsy or other seizure disorder; migraines; lupus; endometriosis or uterine fibroid tumors; hereditary angioedema; porphyria (a genetic enzyme disorder that causes symptoms affecting the skin or nervous system); a thyroid disorder; or high levels of calcium in your blood. Using estradiol may increase your risk of cancer of the breast, uterus, or ovaries. Talk with your doctor about this risk. Estradiol can slow breast milk production. Tell your doctor if you are breast-feeding. How should I take estradiol? Follow all directions on your prescription label and read all medication guides or instruction sheets. Use the medicine exactly as directed. Estradiol may increase your risk of developing a condition that can lead to uterine cancer. To helplower this risk, your doctor may also want you to take a progestin. Report any unusual vaginal bleeding right away. Your doctor should check your progress on a regular basis (every 3 to 6 months) to determine whether you should continue this treatment. Self-examine your breasts for lumps on a monthly basis and have a mammogram every year while using estradiol. If you need major surgery or will be on long-term bed rest, you may need to stop using this medicine for a short time. Any doctor or surgeon who treats you should know that you are using estradiol. Store at room temperature away from moisture, heat, and light. Keep the bottle tightly closed when not in use. What happens if I miss a dose? Take the medicine as soon as you can, but skip the missed dose if it is almost time for your next dose. Do not take two doses at one time. What happens if I overdose? Seek emergency medical attention or call the Poison Help line at . What should I avoid while taking estradiol? Avoid smoking. It can greatly increase your risk of blood clots, stroke, or heart attack while using estradiol. Grapefruit may interact with estradiol and lead to unwanted side effects. Avoid the use of grapefruit products. What are the possible side effects of estradiol? Get emergency medical help if you have signs of an allergic reaction: hives; difficult breathing; swelling of your face, lips, tongue, or throat. Call your doctor at once if you have: heart attack symptoms--chest pain or pressure, pain spreading to your jaw or shoulder, nausea, sweating; signs of a stroke--sudden numbness or weakness (especially on one side of the body), sudden severe headache, slurred speech, problems with vision or balance; signs of a blood clot--sudden vision loss, stabbing chest pain, feeling short of breath, coughing up blood, pain or warmth in one or both legs; swelling or tenderness in your stomach; jaundice (yellowing of the skin or eyes); memory problems, confusion, unusual behavior; unusual vaginal bleeding, pelvic pain; a lump in your breast; or high levels of calcium in your blood--nausea, vomiting, constipation, increased thirst or urination, muscle weakness, bone pain, lack of energy. Common side effects may include: nausea, vomiting, diarrhea, stomach cramps; mood changes, sleep problems (insomnia); cold symptoms such as stuffy nose, sinus pain, sore throat; weight gain; headache, back pain; breast pain; thinning scalp hair; or vaginal itching or discharge, changes in your menstrual periods, breakthrough bleeding. This is not a complete list of side effects and others may occur. Call your doctor for medical advice about side effects. You may report side effects to FDA at 3-670-GNJ-3930. What other drugs will affect estradiol? Sometimes it is not safe to use certain medications at the same time. Some drugs can affect your blood levels of other drugs you take, which may increase side effects or make the medications less effective. Many drugs can interact with estradiol. This includes prescription and okit-twb-afebaee medicines, vitamins, and herbal products. Not all possible interactions are listed in this medication guide. Tell your doctor about all your current medicines and any medicine you start or stop using. Where can I get more information? Your pharmacist can provide more information about estradiol. Remember, keep this and all other medicines out of the reach of children, never share your medicines with others, and use this medication only for the indication prescribed. Every effort has been made to ensure that the information provided by [facility]. ('[facility]') is accurate, up-to-date, and complete, but no guarantee is made to that effect. Drug information contained herein may be time sensitive. [facility]) information has been compiled for use by healthcare practitioners and consumers in the [place] and therefore [facility]) does not warrant that uses outside of the [place] are appropriate, unless specifically indicated otherwise. [facility] drug information does not endorse drugs, diagnose patients or recommend therapy. [facility] drug information isan informational resource designed to assist licensed healthcare practitioners in caring for their p atients and/or to serve consumers viewing this service as a supplement to, and not a substitute for, the expertise, skill, knowledge and judgment of healthcare practitioners. The absence of a warningfor a given drug or drug combination in no way should be construed to indicate that the drug or drug combination is safe, effective or appropriate for any given patient. [facility]) does not assume any responsibility for any aspect of healthcare administered with the aid of information [facility] provides. The information contained herein is not intended to cover all possible uses, directions, precautions, warnings, drug interactions, allergic reactions, or adverse effects. If you have questions about the drugs you are taking, check with your doctor, nurse or pharmacist. Copyright 0564-2803 [facility]. Version: 12.05. Revision Date: 07/08/2018. ibuprofen (EYE bue PROE fen) Advil, Advil Migraine, Children's Advil, Children's Ibuprofen Cherry, Children's Motrin, Genpril, IBU, Ibuprohm, Motrin Childrens, Motrin IB, Motrin IB Migraine, Motrin Drops, Motrin Migraine Pain, Proprinal, Wal-Profen What is the most important information I should know about ibuprofen? Ibuprofen can increase your risk of fatal heart attack or stroke. Do not use this medicine just before or after heart bypass surgery (coronary artery bypass graft, or CABG). Ibuprofen may also cause stomach or intestinal bleeding, which can be fatal. What is ibuprofen? Ibuprofen is a nonsteroidal anti-inflammatory drug (NSAID). Ibuprofen is used to reduce fever and treat pain or inflammation caused by many conditions such as headache, toothache, back pain, arthritis, menstrual cramps, or minor injury. This medicine is used in adults and children who are at least 6 months old. Ibuprofen may also be used for purposes not listed in this medication guide. What should I discuss with my healthcare provider before taking ibuprofen? Ibuprofen can increase your risk of fatal heart attack or stroke, even if you don't have any risk factors. Do not use this medicine just before or after heart bypass surgery (coronary artery bypass graft, or CABG). Ibuprofen may also cause stomach or intestinal bleeding, which can be fatal. These conditions can occur without warning while you are using ibuprofen, especially in older adults. You should not use ibuprofen if you are allergic to it, or if you have ever had an asthma attack orsevere allergic reaction after taking aspirin or an NSAID. Ask a doctor or pharmacist if this medicine is safe to use if you have ever had: heart disease, high blood pressure, high cholesterol, diabetes, or if you smoke; a heart attack, stroke, or blood clot; stomach ulcers or bleeding; liver or kidney disease; asthma; or if you take aspirin to prevent heart attack or stroke. Ask a doctor before using this medicine if you are or . If you are , you should not take ibuprofen unless your doctor tells you to. Taking an NSAIDduring the last 20 weeks of can cause serious heart or kidney problems in the unborn babyand possible complications with your . Do not give ibuprofen to a child younger than 6 months old without the advice of a doctor. How should I take ibuprofen? Use exactly as directed on the label, or as prescribed by your doctor. Use the lowest dose that is effective in treating your condition. An ibuprofen overdose can damage your stomach or intestines. The maximum amount of ibuprofen for adults is 800 milligrams per dose or 3200 mg per day (4 maximum doses). A child's dose of ibuprofen is based on the age and weight of the child. Carefully follow the dosing instructions provided with children's ibuprofen for the age and weight of your child. Ask a doctoror pharmacist if you have questions. Take ibuprofen with food or milk to lessen stomach upset. Shake the oral suspension (liquid) before you measure a dose. Use the dosing syringe provided, or use a medicine dose-measuring device (not a kitchen spoon). You must chew the chewable tablet before you swallow it. Store at room temperature away from moisture and heat. Do not allow the liquid medicine to freeze. What happens if I miss a dose? Since ibuprofen is used when needed, you may not be on a dosing schedule. Skip any missed dose if it's almost time for your next dose. Do not use two doses at one time. What happens if I overdose? Seek emergency medical attention or call the Poison Help line at . Overdose symptoms may include nausea, vomiting, stomach pain, drowsiness, black or bloody stools, coughing up blood, shallow breathing, fainting, or coma. What should I avoid while taking ibuprofen? Ask a doctor or pharmacist before using other medicines for pain, fever, swelling, or cold/flu symptoms. They may contain ingredients similar to ibuprofen (such as aspirin, ibuprofen, ketoprofen, or naproxen). Avoid taking aspirin unless your doctor tells you to. If you also take aspirin to prevent stroke or heart attack, taking ibuprofen can make aspirin less effective in protecting your heart and blood vessels. If you take both medicines, take ibuprofen at least 8 hours before or 30 minutes after you take aspirin (non-enteric coated form). Avoid drinking alcohol. It may increase your risk of stomach bleeding. What are the possible side effects of ibuprofen? Get emergency medical help if you have signs of an allergic reaction (hives, difficult breathing, swelling in your face or throat) or a severe skin reaction (fever, sore throat, burning eyes, skin pain, red or purple skin rash with blistering and peeling). Get emergency medical help if you have signs of a heart attack or stroke: chest pain spreading to your jaw or shoulder, sudden numbness or weakness on one side of the body, slurred speech, leg swelling, feeling short of breath. Stop using ibuprofen and call your doctor at once if you have: changes in your vision; shortness of breath (even with mild exertion); swelling or rapid weight gain; a skin rash, no matter how mild; signs of stomach bleeding--bloody or tarry stools, coughing up blood or vomit that looks like coffee grounds; liver problems--nausea, upper stomach pain, itching, tired feeling, flu-like symptoms, loss of appetite, dark urine, leroy-colored stools, jaundice (yellowing of the skin or eyes); low red blood cells (anemia)--pale skin, feeling light-headed or short of breath, rapid heart rate,trouble concentrating; or kidney problems--little or no urinating, painful or difficult urination, swelling in your feet or ankles, feeling tired or short of breath. Common side effects may include: nausea, vomiting, gas; bleeding; or dizziness, headache. This is not a complete list of side effects and others may occur. Call your doctor for medical advice about side effects. You may report side effects to FDA at 3-043-OBA-6254. What other drugs will affect ibuprofen? Ask your doctor before using ibuprofen if you take an antidepressant. Taking certain antidepressants with an NSAID may cause you to bruise or bleed easily. Ask a doctor or pharmacist before using ibuprofen with any other medications, especially: cyclosporine; lithium; methotrexate; a blood thinner (warfarin, Coumadin, Jantoven); heart or blood pressure medication, including a diuretic or 'water pill'; or steroid medicine (such as prednisone). This list is not complete. Other drugs may affect ibuprofen, including prescription and rfyt-rsb-egxhppr medicines, vitamins, and herbal products. Not all possible drug interactions are listed here. Where can I get more information? Your pharmacist can provide more information about ibuprofen. Remember, keep this and all other medicines out of the reach of children, never share your medicines with others, and use this medication only for the indication prescribed. Every effort has been made to ensure that the information provided by [facility]. ('[facility]') is accurate, up-to-date, and complete, but no guarantee is made to that effect. Drug information contained herein may be time sensitive. [facility]) information has been compiled for use by healthcare practitioners and consumers in the [place] and therefore [facility]) does not warrant that uses outside of the [place] are appropriate, unless specifically indicated otherwise. [facility] drug information does not endorse drugs, diagnose patients or recommend therapy. [facility] drug information isan informational resource designed to assist licensed healthcare practitioners in caring for their p atients and/or to serve consumers viewing this service as a supplement to, and not a substitute for, the expertise, skill, knowledge and judgment of healthcare practitioners. The absence of a warningfor a given drug or drug combination in no way should be construed to indicate that the drug or drug combination is safe, effective or appropriate for any given patient. [facility]) does not assume any responsibility for any aspect of healthcare administered with the aid of information [facility] provides. The information contained herein is not intended to cover all possible uses, directions, precautions, warnings, drug interactions, allergic reactions, or adverse effects. If you have questions about the drugs you are taking, check with your doctor, nurse or pharmacist. Copyright [id number] [facility]. Version: 24.02. Revision Date: 02/09/2023. acetaminophen and oxycodone (a SEET a MIN oh fen and OX i KOE done) Endocet 10/325, Endocet 2.5/325, Endocet 5/325, Endocet 7.5/325, Nalocet, Percocet, Prolate What is the most important information I should know about acetaminophen and oxycodone? MISUSE OF OPIOID MEDICINE CAN CAUSE ADDICTION, OVERDOSE, OR . Keep the medication in a place where others cannot get to it. Taking opioid medicine during may cause life-threatening withdrawal symptoms in the . Fatal side effects can occur if you use opioid medicine with alcohol, or with other drugs that cause drowsiness or slow your breathing. Stop taking this medicine and call your doctor right away if you have skin redness or a rash that spreads and causes blistering and peeling. What is acetaminophen and oxycodone? Acetaminophen and oxycodone is a combination medicine used to relieve moderate to severe pain. Acetaminophen and oxycodone contains an opioide medicine and may be habit-forming. Acetaminophen and oxycodone may also be used for purposes not listed in this medication guide. What should I discuss with my healthcare provider before taking acetaminophen and oxycodone? You should not use this medicine if you are allergic to acetaminophen or oxycodone, or if you have: severe asthma or breathing problems; or a blockage in your stomach or intestines. Tell your doctor if you have ever had: breathing problems, sleep apnea; liver disease; a drug or alcohol addiction; kidney disease; a head injury or seizures; urination problems; or problems with your thyroid, pancreas, or gallbladder. If you use opioid medicine while you are , your baby could become dependent on the drug. This can cause life-threatening withdrawal symptoms in the baby after it is born. Babies born dependent on opioids may need medical treatment for several weeks. Ask a doctor before using opioid medicine if you are . Tell your doctor if you notice severe drowsiness or slow breathing in the nursing baby. How should I take acetaminophen and oxycodone? Follow all directions on your prescription label. Never take this medicine in larger amounts, or for longer than prescribed. An overdose can damage your liver or cause . Tell your doctor if you feel an increased urge to use more of this medicine. Never share opioid medicine with another person, especially someone with a history of drug abuse oraddiction. MISUSE CAN CAUSE ADDICTION, OVERDOSE, OR . Keep the medicine in a place where others cannot get to it. Selling or giving away opioid medicine is against the law. Measure liquid medicine carefully. Use the dosing syringe provided, or use a medicine dose-measuring device (not a kitchen spoon). If you need surgery or medical tests, tell the doctor ahead of time that you are using this medicine. You should not stop using this medicine suddenly. Follow your doctor's instructions about tapering your dose. Store at room temperature away from moisture and heat. Keep track of your medicine. You should be aware if anyone is using it improperly or without a prescription. Do not keep leftover opioid medication. Just one dose can cause in someone using this medicine accidentally or improperly. Ask your pharmacist where to locate a drug take-back disposal program.If there is no take-back program, flush the unused medicine down the toilet. What happens if I miss a dose? Since this medicine is used for pain, you are not likely to miss a dose. Skip any missed dose if itis almost time for your next dose. Do not use two doses at one time. What happens if I overdose? Seek emergency medical attention or call the Poison Help line at . An overdose of this medicine can be fatal, especially in a child or other person using the medicine without a prescription. Overdose symptoms may include nausea, vomiting, sweating, severe drowsiness, pinpoint pupils, slow breathing, or no breathing. Your doctor may recommend you get naloxone (a medicine to reverse an opioid overdose) and keep it with you at all times. A person caring for you can give the naloxone if you stop breathing or don't wake up. Your caregiver must still get emergency medical help and may need to perform CPR (cardiopulmonary resuscitation) on you while waiting for help to arrive. Anyone can buy naloxone from a pharmacy or local health department. Make sure any person caring foryou knows where you keep naloxone and how to use it. What should I avoid while taking acetaminophen and oxycodone? Avoid driving or operating machinery until you know how this medicine will affect you. Dizziness ordrowsiness can cause falls, accidents, or severe injuries. Do not drink alcohol. Dangerous side effects or could occur. Ask a doctor or pharmacist before using any other medicine that may contain acetaminophen (sometimes abbreviated as APAP). Taking certain medications together can lead to a fatal overdose. What are the possible side effects of acetaminophen and oxycodone? Get emergency medical help if you have signs of an allergic reaction: hives; difficulty breathing; swelling of your face, lips, tongue, or throat. Opioid medicine can slow or stop your breathing, and may occur. A person caring for you should give naloxone and/or seek emergency medical attention if you have slow breathing with long pauses,blue colored lips, or if you are hard to wake up. In rare cases, acetaminophen may cause a severe skin reaction that can be fatal. This could occur even if you have taken acetaminophen in the past and had no reaction. Stop taking this medicine and call your doctor right away if you have skin redness or a rash that spreads and causes blistering andpeeling. Call your doctor at once if you have: noisy breathing, sighing, shallow breathing, breathing that stops; a light-headed feeling, like you might pass out; weakness, tiredness, fever, unusual bruising or bleeding; confusion, unusual thoughts or behavior; problems with urination; liver problems--nausea, upper stomach pain, tiredness, loss of appetite, dark urine, leroy-colored stools, jaundice (yellowing of the skin or eyes); low cortisol levels-- nausea, vomiting, loss of appetite, dizziness, worsening tiredness or weakness; or high levels of serotonin in the body--agitation, hallucinations, fever, sweating, shivering, fast heart rate, muscle stiffness, twitching, loss of coordination, nausea, vomiting, diarrhea. Serious breathing problems may be more likely in older adults and in those who are debilitated or have wasting syndrome or chronic breathing disorders. Common side effects include: dizziness, drowsiness, feeling tired; feelings of extreme happiness or sadness; nausea, vomiting, stomach pain; constipation; or headache. This is not a complete list of side effects and others may occur. Call your doctor for medical advice about side effects. You may report side effects to FDA at 7-073-KUJ-5085. What other drugs will affect acetaminophen and oxycodone? You may have breathing problems or withdrawal symptoms if you start or stop taking certain other medicines. Tell your doctor if you also use an antibiotic, antifungal medication, heart or blood pressure medication, seizure medication, or medicine to treat HIV or hepatitis C. Opioid medication can interact with many other drugs and cause dangerous side effects or . Be sure your doctor knows if you also use: cold or allergy medicines, bronchodilator asthma/COPD medication, or a diuretic ('water pill'); medicines for motion sickness, irritable bowel syndrome, or overactive bladder; other opioids--opioid pain medicine or prescription cough medicine; a sedative like Valium--diazepam, alprazolam, lorazepam, Xanax, Klonopin, Versed, and others; drugs that make you sleepy or slow your breathing--a sleeping pill, muscle relaxer, medicine to treat mood disorders or mental illness; drugs that affect serotonin levels in your body--a stimulant, or medicine for depression, Parkinson's disease, migraine headaches, serious infections, or nausea and vomiting. This list is not complete. Other drugs may affect acetaminophen and oxycodone, including prescription and caqy-eit-enyqicj medicines, vitamins, and herbal products. Not all possible interactions are listed here. Where can I get more information? Your doctor or pharmacist can provide more information about acetaminophen and oxycodone. Remember, keep this and all other medicines out of the reach of children, never share your medicines with others, and use this medication only for the indication prescribed. Every effort has been made to ensure that the information provided by [facility]. ('[facility] is accurate, up-to-date, and complete, but no guarantee is made to that effect. Drug information contained herein may be time sensitive. [facility]) information has been compiled for use by healthcare practitioners and consumers in the [place] and therefore [facility]) does not warrant that uses outside of the [place] are appropriate, unless specifically indicated otherwise. [facility] drug information does not endorse drugs, diagnose patients or recommend therapy. [facility] drug information isan informational resource designed to assist licensed healthcare practitioners in caring for their p atients and/or to serve consumers viewing this service as a supplement to, and not a substitute for, the expertise, skill, knowledge and judgment of healthcare practitioners. The absence of a warningfor a given drug or drug combination in no way should be construed to indicate that the drug or drug combination is safe, effective or appropriate for any given patient. [facility] ([facility]) does not assume any responsibility for any aspect of healthcare administered with the aid of information [employer] provides. The information contained herein is not intended to cover all possible uses, directions, precautions, warnings, drug interactions, allergic reactions, or adverse effects. If you have questions about the drugs you are taking, check with your doctor, nurse or pharmacist. Copyright [id number] [employer]. Version: 22.. Revision Date: 12/23/2022. Education Materials Deep Vein Thrombosis Deep vein thrombosis (DVT) is a condition in which a blood clot forms in a deep vein, such as a lower leg, thigh, or arm vein. A clot is blood that has thickened into a gel or solid. This condition is dangerous. It can lead to serious and even life-threatening complications if the clot travels to the lungs and causes a blockage (pulmonary embolism). It can also damage veins in the leg. This can result in leg pain, swelling, discoloration, and sores (post-thrombotic syndrome). What are the causes? This condition may be caused by: A slowdown of blood flow. Damage to a vein. A condition that causes blood to clot more easily, such as an inherited clotting disorder. What increases the risk? The following factors may make you more likely to develop this condition: Being overweight. Being older, especially over age 60. Sitting or lying down for more than four hours. Being in the hospital. Lack of physical activity (sedentary lifestyle). , being in childbirth, or having recently given . Taking medicines that contain estrogen, such as medicines to prevent . Smoking. A history of any of the following: ? Blood clots or a blood clotting disease. ? Peripheral vascular disease. ? Inflammatory bowel disease. ? Cancer. ? Heart disease. ? Genetic conditions that affect how your blood clots, such as Factor V Leiden mutation. ? Neurological diseases that affect your legs (leg paresis). ? A recent injury, such as a car accident. ? Major or lengthy surgery. ? A central line placed inside a large vein. What are the signs or symptoms? Symptoms of this condition include: Swelling, pain, or tenderness in an arm or leg. Warmth, redness, or discoloration in an arm or leg. If the clot is in your leg, symptoms may be more noticeable or worse when you stand or walk. Some people may not develop any symptoms. How is this diagnosed? This condition is diagnosed with: A medical history and physical exam. Tests, such as: ? Blood tests. These are done to check how well your blood clots. ? Ultrasound. This is done to check for clots. ? Venogram. For this test, contrast dye is injected into a vein and X-rays are taken to check for anyclots. How is this treated? Treatment for this condition depends on: The cause of your DVT. Your risk for bleeding or developing more clots. Any other medical conditions that you have. Treatment may include: Taking a blood thinner (anticoagulant). This type of medicine prevents clots from forming. It may be taken by mouth, injected under the skin, or injected through an IV (catheter). Injecting clot-dissolving medicines into the affected vein (catheter-directed thrombolysis). Having surgery. Surgery may be done to: ? Remove the clot. ? Place a filter in a large vein to catch blood clots before they reach the lungs. Some treatments may be continued for up to six months. Follow these instructions at home: If you are taking blood thinners: Take the medicine exactly as told by your health care provider. Some blood thinners need to be taken at the same time every day. Do not skip a dose. Talk with your health care provider before you take any medicines that contain aspirin or NSAIDs. These medicines increase your risk for dangerous bleeding. Ask your health care provider about foods and drugs that could change the way the medicine works (may interact). Avoid those things if your health care provider tells you to do so. Blood thinners can cause easy bruising and may make it difficult to stop bleeding. Because of this: ? Be very careful when using knives, scissors, or other sharp objects. ? Use an electric razor instead of a blade. ? Avoid activities that could cause injury or bruising, and follow instructions about how to prevent falls. Wear a medical alert bracelet or carry a card that lists what medicines you take. General instructions Take ezij-hbi-lfnnstq and prescription medicines only as told by your health care provider. Return to your normal activities as told by your health care provider. Ask your health care provider what activities are safe for you. Wear compression stockings if recommended by your health care provider. Keep all follow-up visits as told by your health care provider. This is important. How is this prevented? To lower your risk of developing this condition again: For 30 or more minutes every day, do an activity that: ? Involves moving your arms and legs. ? Increases your heart rate. When traveling for longer than four hours: ? Exercise your arms and legs every hour. ? Drink plenty of water. ? Avoid drinking alcohol. Avoid sitting or lying for a long time without moving your legs. If you have surgery or you are hospitalized, ask about ways to prevent blood clots. These may include taking frequent walks or using anticoagulants. Stay at a healthy weight. If you are a woman who is older than age 35, avoid unnecessary use of medicines that contain estrogen, such as some control pills. Do not use any products that contain nicotine or tobacco, such as cigarettes and e-cigarettes. Thisis especially important if you take estrogen medicines. If you need help quitting, ask your health care provider. Contact a health care provider if: You miss a dose of your blood thinner. Your menstrual period is heavier than usual. You have unusual bruising. Get help right away if: You have: ? New or increased pain, swelling, or redness in an arm or leg. ? Numbness or tingling in an arm or leg. ? Shortness of breath. ? Chest pain. ? A rapid or irregular heartbeat. ? A severe headache or confusion. ? A cut that will not stop bleeding. There is blood in your vomit, stool, or urine. You have a serious fall or accident, or you hit your head. You feel light-headed or dizzy. You cough up blood. These symptoms may represent a serious problem that is an emergency. Do not wait to see if the symptoms will go away. Get medical help right away. Call your local emergency services (911 in the [place] Do not drive yourself to the hospital. Summary Deep vein thrombosis (DVT) is a condition in which a blood clot forms in a deep vein, such as a lower leg, thigh, or arm vein. Symptoms can include swelling, warmth, pain, and redness in your leg or arm. This condition may be treated with a blood thinner (anticoagulant medicine), medicine that is injected to dissolve blood clots,compression stockings, or surgery. If you are prescribed blood thinners, take them exactly as told. This information is not intended to replace advice given to you by your health care provider. Make sure you discuss any questions you have with your health care provider. Document Released: 05/09/2006 Document Revised: 04/21/2018 Document Reviewed: 10/07/2017 [employer] Patient Education 2020 [employer] Nausea and Vomiting, Adult Nausea is feeling sick to your stomach or feeling that you are about to throw up (vomit). Vomiting is when food in your stomach is thrown up and out of the mouth. Throwing up can make you feel weak. It can also make you lose too much water in your body (get dehydrated). If you lose too much water in your body, you may: Feel tired. Feel thirsty. Have a dry mouth. Have cracked lips. Go pee (urinate) less often. Older adults and people with other diseases or a weak body defense system (immune system) are at higher risk for losing too much water in the body. If you feel sick to your stomach and you throw up, it is important to follow instructions from your doctor about how to take care of yourself. Follow these instructions at home: Watch your symptoms for any changes. Tell your doctor about them. Follow these instructions to carefor yourself at home. Eating and drinking Take an ORS (oral rehydration solution). This is a drink that is sold at pharmacies and stores. Drink clear fluids in small amounts as you are able, such as: ? Water. ? Ice chips. ? Fruit juice that has water added (diluted fruit juice). ? Low-calorie sports drinks. Eat bland, idut-mh-ejnxtd foods in small amounts as you are able, such as: ? Bananas. ? Applesauce. ? Rice. ? Low-fat (lean) meats. ? Dougherty. ? Crackers. Avoid drinking fluids that have a lot of sugar or caffeine in them. This includes energy drinks, sports drinks, and soda. Avoid alcohol. Avoid spicy or fatty foods. General instructions Take yvfy-xiy-qwkcmjc and prescription medicines only as told by your doctor. Drink enough fluid to keep your pee (urine) pale yellow. Wash your hands often with soap and water. If you cannot use soap and water, use hand application engineer. Make sure that all people in your home wash their hands well and often. Rest at home while you get better. Watch your condition for any changes. Take slow and deep breaths when you feel sick to your stomach. Keep all follow-up visits as told by your doctor. This is important. Contact a doctor if: Your symptoms get worse. You have new symptoms. You have a fever. You cannot drink fluids without throwing up. You feel sick to your stomach for more than 2 days. You feel light-headed or dizzy. You have a headache. You have muscle cramps. You have a rash. You have pain while peeing. Get help right away if: You have pain in your chest, neck, arm, or jaw. You feel very weak or you pass out (faint). You throw up again and again. You have throw up that is bright red or looks like black coffee grounds. You have bloody or black poop (stools) or poop that looks like tar. You have a very bad headache, a stiff neck, or both. You have very bad pain, cramping, or bloating in your belly (abdomen). You have trouble breathing. You are breathing very quickly. Your heart is beating very quickly. Your skin feels cold and clammy. You feel confused. You have signs of losing too much water in your body, such as: ? Dark pee, very little pee, or no pee. ? Cracked lips. ? Dry mouth. ? Sunken eyes. ? Sleepiness. ? Weakness. These symptoms may be an maggi (more content not included)... [facility] Anesthesiology Consult note Patient: ELMO NUNO Age: 28 years Sex: Female : 1995 Associated Diagnoses: None Author: JARRED BRITO APRN-BLOCK INSPECTOR Preoperative Information Time of last food or liquid consumption: 03/15/2024 00:00:00 Anesthesia history Patient's history: negative, anterior airway. Family's history: negative. Review of Systems Ear/Nose/Mouth/Throat: Negative. Respiratory: Negative. Cardiovascular: Negative. Gastrointestinal: SMO. Genitourinary: Negative. Endocrine: Negative. Musculoskeletal: Negative. Integumentary: Negative. Neurologic: Negative. Health Status Allergies: Allergic Reactions (Selected) Severity Not Documented Chlorhexidine topical- Hives. Codeine- Hives. Penicillin- Hives., Allergies (3) ActiveSeverityReaction penicillinhives codeinehives chlorhexidine topicalhives Current medications: (Selected) Inpatient Medications Ordered Demerol (PACU): 25 mg, 1 mL, IV Push, q4h, PRN: Pain, breakthrough LR 1000 mL: 20 mL/hr, Intravenous Zofran ( PACU ): 4 mg, 2 mL, IV Push, AsDirected, PRN: Nausea/Vomiting morphine ( PACU ): 2 mg, 1 mL, IV Push, q5min, PRN: Pain, scale 4-6 Prescriptions Prescribed Percocet 5 mg-325 mg oral tablet: 1 tab(s), Oral, q4h, for 7 day(s), PRN: as needed for pain, 20 tab(s), 0 Refill(s) estradiol 2 mg oral tablet: 2 mg, 1 tab(s), Oral, qDay, for 90 day(s), 90 tab(s), 3 Refill(s) ibuprofen 600 mg oral tablet: 600 mg, 1 tab(s), Oral, q6h, for 10 day(s), Take with food or milk., PRN: for pain, 30 tab(s), 1 Refill(s), Medications (4) Active Scheduled: (0) Continuous: (1) Lactated Ringers Infusion 1000 mL 1,000 mL, Intravenous, 20 mL/hr PRN: (3) meperidine 25 mg 1 mL, IV Push, q4h morphine 2 mg/mL 1 mL syringe 2 mg 1 mL, IV Push, q5min ondansetron 2 mg/ 1 mL 2 mL INJ 4 mg 2 mL, IV Push, AsDirected Problem list: Medical History of endometriosis / SNOMED CT 3477607538 / Confirmed S/P laparoscopy / SNOMED CT 0587360188 / Confirmed S/P laparoscopic surgery / SNOMED CT [id number] / Confirmed S/P right oophorectomy / SNOMED CT 9440861077 / Confirmed Pelvic pain / SNOMED CT 890234725 / Confirmed Breast pain, right / SNOMED CT 2682447205 / Confirmed Encounter for annual routine gynecological examination / SNOMED CT 319129659 / Confirmed, Active Problems (7) Breast pain, right Encounter for annual routine gynecological examination History of endometriosis Pelvic pain S/P laparoscopic surgery S/P laparoscopy S/P right oophorectomy Histories Past Medical History: No active or resolved past medical history items have been selected or recorded. Family History: Breast cancer Grandparent () Comments: 06/16/2023 9:55 Mellissa Boyce LPN maternal grandmother Rheumatoid arthritis Mother Heart disease Grandparent () Father () Heart attack Grandparent () Endometriosis Mother Diabetes Grandparent () Father () Colon cancer Father () Comments: 06/16/2023 9:55 Mellissa Boyce LPN onset early 40's Grandparent () Comments: 06/16/2023 9:56 Mellissa Boyce LPN paternal grandfather Procedure history: Hysterectomy (309677075). Cholecystectomy (83787910). Cyst of right ovary ([id number]). Cyst of left ovary ([id number]). Tonsillectomy with adenoidectomy (73626060). 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 Social History: Social & Psychosocial Habits Alcohol 03/15/2024 Use: Never Substance Abuse 03/15/2024 Use: Never Tobacco 03/15/2024 Tobacco Use: Never (less than 100 in l Home/Environment 03/15/2024 Domestic Concerns None Nutrition/Health 03/15/2024 Caffeine intake amount: 3 servings daily Physical Examination Vital Signs 03/15/2024 7:45 EDT Heart Rate Monitored 112 bpm bpm Respiratory Rate - Anes 12 br/min br/min Systolic Blood Pressure Non-Invasive 99 mmHg mmHg Diastolic Blood Pressure Non-Invasive 57 mmHg mmHg 03/15/2024 7:40 EDT Heart Rate Monitored 113 bpm bpm Respiratory Rate - Anes 6 br/min br/min Systolic Blood Pressure Non-Invasive 122 mmHg mmHg Diastolic Blood Pressure Non-Invasive 77 mmHg mmHg 03/15/2024 7:35 EDT Heart Rate Monitored 99 bpm bpm Respiratory Rate - Anes 0 br/min br/min Systolic Blood Pressure Non-Invasive 113 mmHg mmHg Diastolic Blood Pressure Non-Invasive 71 mmHg mmHg 03/15/2024 7:33 EDT Systolic Blood Pressure Non-Invasive 134 mmHg mmHg Diastolic Blood Pressure Non-Invasive 90 mmHg mmHg 03/15/2024 6:12 EDT Temperature Temporal Artery 36.6 DegC Peripheral Pulse Rate 85 bpm Respiratory Rate 20 br/min Systolic Blood Pressure Non-Invasive 123 mmHg Diastolic Blood Pressure Non-Invasive 85 mmHg Vital Signs (last 24 hrs) Last Charted Temp Jmfugqrk64.6 DegC (MAR 15 06:12) Heart Rate Rtynbyqqz242 bpm (MAR 15 07:45) SBP99 mmHg (MAR 15 07:45) DBP57 mmHg (MAR 15 07:45) Measurements from flowsheet : Measurements 03/15/2024 6:12 EDT Height 162.6 cm Height in inches 64 inch(es) Admission Weight 127.3 kg Weight Lbs 280.1 lb [place] Body Weight 54.74 kg Admission Body Mass Index 48.15 m2 Pain assessment: Pain Assessment 03/15/2024 6:12 EDT Primary Pain Intensity 0 Pain Scale Type 0-10 Pain scale . General: Alert and oriented. Airway: Normal temporomandibular joint mobility. Mallampati classification: III (soft palate, base of uvula visible). Head: Normocephalic. Dentition Evaluation: Own teeth. Neck: Supple. Respiratory: Lungs are clear to auscultation. Cardiovascular: Normal rate. Heart Sounds: Normal. Gastrointestinal: Soft. Musculoskeletal Normal range of motion. Integumentary: Intact. Neurologic: Alert, Oriented. Review / Management Results review: No qualifying data available , Lab results 03/15/2024 7:56 EDT SN - [facility] - Anti-thromboembolism Gina Sequential Compression Device (SCD) 03/15/2024 7:56 EDT SN - Assess - LOC Alert, Awake SN - Assess - Orientation Oriented X 3 SN - Assess - Post-op Skin Integrity Intact/Dry 03/15/2024 7:55 EDT SN - CTm - Surgery Start 03/15/2024 7:50 03/15/2024 7:55 EDT SN - NV - Route of Administration Local SN - NV - By (Single) SN - NV - By (Single) SN - NV - Time Administered 03/15/2024 7:55 03/15/2024 7:55 EDT SN - GCD - ASA Class 3 03/15/2024 7:51 EDT gentamicin 640 mg mg Dextrose 5% in Water 50 mL mL 03/15/2024 7:45 EDT Heart Rate Monitored 112 bpm bpm Respiratory Rate - Anes 12 br/min br/min Systolic Blood Pressure Non-Invasive 99 mmHg mmHg Diastolic Blood Pressure Non-Invasive 57 mmHg mmHg Oxygen Saturation 99 % % Set Rate Anes 12 br/min br/min 03/15/2024 7:40 EDT Heart Rate Monitored 113 bpm bpm Respiratory Rate - Anes 6 br/min br/min Systolic Blood Pressure Non-Invasive 122 mmHg mmHg Diastolic Blood Pressure Non-Invasive 77 mmHg mmHg Oxygen Saturation 97 % % clindamycin 900 mg mg Set Rate Anes 8 br/min br/min 03/15/2024 7:35 EDT Heart Rate Monitored 99 bpm bpm Respiratory Rate - Anes 0 br/min br/min Systolic Blood Pressure Non-Invasive 113 mmHg mmHg Diastolic Blood Pressure Non-Invasive 71 mmHg mmHg Oxygen Saturation 100 % % 03/15/2024 7:33 EDT Systolic Blood Pressure Non-Invasive 134 mmHg mmHg Diastolic Blood Pressure Non-Invasive 90 mmHg mmHg 03/15/2024 7:27 EDT SN - GCD - Post-operative Diagnosis RIGHT OVARIAN CYST SN - GCD - Case Level Level 4 03/15/2024 7:27 EDT SN - Cul - Culture Type Tissue in Formalin SN - Cul - Kind Specimen 03/15/2024 7:21 EDT SN - Preop - CTm Pt Ready for OR/Proced 03/15/2024 6:35 03/15/2024 7:16 EDT SN - CAt - Case Attendee SN - CAt - Case Attendee SN - CAt - Case Attendee SN - CAt - Case Attendee SN - CAt - Case Attendee SN - CAt - Case Attendee SN - CAt - Case Attendee SN - CAt - Case Attendee SN - CAt - Case Attendee SN - CAt - Case Attendee SN - CAt - Role Performed Primary Surgeon SN - CAt - Role Performed Grease Buffer 1 SN - CAt - Role Performed Scrub 1 SN - CAt - Role Performed Internet Developer 1 SN - CAt - Role Performed BLOCK INSPECTOR 03/15/2024 7:12 EDT [place] History and Physical 03/15/2024 6:34 EDT Wrist Right 03/15/2024 20 gauge Peripheral IV Activity: Insert new site Peripheral IV Dressing Condition: Clean, Dry, Intact Peripheral IV Dressing Activity: Transparent dressing Peripheral IV Line Status/Patency: Flushes easily, Continuous infusion Peripheral IV Site Condition: No complications Peripheral IV Number of Attempts: 1 03/15/2024 6:32 EDT SN - Preop - CTm Pt in SDS Room 03/15/2024 6:01 03/15/2024 6:12 EDT Height 162.6 cm Height in inches 64 inch(es) Admission Weight 127.3 kg Weight Lbs 280.1 lb [place] Body Weight 54.74 kg Admission Body Mass Index 48.15 m2 Temperature Temporal Artery 36.6 DegC Peripheral Pulse Rate 85 bpm Respiratory Rate 20 br/min Systolic Blood Pressure Non-Invasive 123 mmHg Diastolic Blood Pressure Non-Invasive 85 mmHg Primary Pain Intensity 0 Pain Scale Type 0-10 Pain scale Respirations Unlabored Respiratory Pattern Regular Breath Sounds Auscultated Anterior and posterior All Lobes Breath Sounds Clear Oxygen Therapy Room air Oxygen Saturation 99 % Abdomen Description Non-distended, Symmetric, Soft Abdomen Palpation Non-Tender, Soft Bowel Sounds All Quadrants Present Urinary Elimination Voiding, no difficulties Skin Temperature Warm Skin Description Normal for ethnicity Skin Integrity Intact Mucous Membrane Color Mulino Skin Moisture General Dry IV Present Present Neurological Symptoms Patient denies Extremity Movement Equal Characteristics of Speech Clear Level of Consciousness Alert KAITLIN Yes Strength All Extremities Strong Affect/Behavior Appropriate, Calm, Cooperative Orientation Oriented x 4 Allergies Yes Anesthesia Extension Set Applied Yes Gymnasium Teacher On Yes Consent Form Signed Yes Patient Dressed In Hospital gown, No undergarments Preop Nasal Swab Povidone-Iodine CHG Skin Prep CHG Allergy - Antibacterial soap used History & Physical On Chart Yes Obstructive Sleep Apnea Assess Completed Yes Britt Motor (2) Moves 4 extremities voluntarily or on command Britt Respirations (2) Spontaneous respiration without support, RR > 10 Britt Blood Pressure (2) BP 20% above or below preanesthetic level Britt Pulse (2) Pulse 20% above or below preanesthetic level Britt Oxygen Saturation (2) 94% or more Britt Level of Consciousness (2) Fully awake Britt III Score 12 Belongings At Bedside Pants, Shirt, Shoes, Socks, Undergarments Activity Status ADL Awake NPO Status Maintained Standard Safety ID band on, Allergy Band on, Call device within reach, Bed in low position, Wheels locked, Visitor at bedside, Safety level maintained Demonstrates Correct Call Light Use Yes Allergy Band on and Verified Yes Patient ID Band on and Verified Yes Implants Verified Yes Pacemaker/AICD Verified Yes Site Verified by Patient/Family Yes Blood Consent Signed Yes Last Fluid Intake 03/14/2024 22:00 Last Food Intake 03/14/2024 22:00 03/15/2024 6:06 EDT Designated Person #1 We May Share YOANA NUNO [phone] Designated Person #1 Relationship Spouse Privacy Restrictions Requested None Status No, per patient Sensory Deficits None Sleep Apnea Snore No Sleep Apnea Tired No Sleep Apnea Obstruction No Sleep Apnea Pressure No Sleep Apnea BMI Yes Sleep Apnea Age No Sleep Apnea Neck No Sleep Apnea Gender No Sleep Apnea Score 1 Diagnosed With Sleep Apnea No Advanced Directives No - refuses information Infectious Disease Symptoms Patient states no symptoms Infectious Disease Recent Exposure No Alcohol and Drug Use No Employee of Institutional Living No Health Care Employee No History of Exposure to TB No History of Positive Chest X-Ray for TB No History of Positive TB Skin Test No Homeless No Known Immunosuppression No Recent Immigrant No Resident of Institutional Living No Bloody Sputum No Fatigue No Fever No Loss of Appetite No Night Sweats No Persistent Cough > 3 Weeks No Weight Loss No Pre-Op Patient Education NPO after midnight, No makeup, No jewelry, Responsible Republican, Aware of surgery location, No ordered medications, SSI prevention handout given SN - Preprocedure Comments Spoke with patient, Verbalizes/Nonverbally indicates understanding, Other: DID NOT GIVE CHG SOAP DUE TO ALLERGY Barriers to Learning None evident Teaching Method Explanation, Printed materials Preferred Spoken Language Ethiopian Preferred Written Language Ethiopian Teaching Evaluation Verbalizes/Nonverbally indicates understanding Safety Brochure Information Reviewed Yes Reshma Max Video Viewed No Patient's Current Physicians pt does not have one Discharge To, Anticipated Home independently Prev Test Positive/Diagnosis w/COVID-19 No Current Quarantine/Isolated any Illness No Any Contact with Sick Animals/Birds No Traveled Anywhere in Last 30 Days No Lost Weight Unintentionally Recently No Eat Poorly Due to Decreased Appetite No Total MST Score 0 No Personal Devices, Patient Valuables None Anesthesia/Transfusions Prior anesthesia Admission Note-Nursing Same Day Patient History . Assessment and Plan [place] [employer] (ASA) physical status classification: Class III. Anesthetic Preoperative Plan Premedication: intravenous. Anesthetic technique: General. Induction: intravenously. Maintenance airway: Oral endotracheal tube. Postoperative pain management: Per surgeon. Risks discussed: nausea, vomiting, sore throat. Informed consent: signed by patient. Digitally Signed by JARRED BRITO on 03/15/2024 07:58 AM [facility]10-24-2024 Note [facility] ADMISSION HISTORY AND PHYSICIAL CHIEF COMPLAINT: Chronic lower pelvic pain with history of ovarian cyst. HISTORY OF PRESENT ILLNESS: Elmo has been experiencing right pelvic pain. She in the past had alaparoscopic assisted hysterectomy and left oophorectomy. She is being followed for possible hemorrhagic cyst of the right ovary. She has a history of endometriosis. REVIEW OF SYSTEMS: Right lower pelvic pain. Review of systems otherwise unremarkable ACTIVE PROBLEMS: (5) Breast pain, right (5343599726) Encounter for annual routine gynecological examination (844160335) History of endometriosis (6521752696) Pelvic pain ([id number]) S/P laparoscopy ([id number]) MEDICATIONS: Active Inpt Meds: clindamycin (Cleocin Phosphate) Start: 03/15/24 6:00:00 EDT, Dose = 900 mg, = 50 mL, IV Piggyback, PREOP pharm, Stop: 03/15/24 23:59:00 EDT, Rate: 100 mL/hr, Infuse over: 30 minute(s), 0 gentamicin (Garamycin) Start: 03/15/24 6:00:00 EDT, Dose = 640 mg, = 16 mL, IV Piggyback, PREOP pharm, Stop: 03/15/24 23:59:00 EDT, Rate: 132 mL/hr, Infuse over: 30 minute(s), 0 Active PRN Meds: None One Time Meds: None Active IV Meds: None ALLERGIES: (3) chlorhexidine topical codeine penicillin FAMILY HISTORY: No specific family history pertaining to this admission. No history of ovarian cancer. SOCIAL HISTORY: Non-smoker no alcohol use no toxic habits. PHYSICAL EXAM: VITALS: [id number](kg) 03/15 06:1236.6--[id number]/02444.3 24 Hr Tmax: 36.6 at 03/15 06:12 36 Hr Tmax: 36.6 at 03/15 06:12 Vital Signs are the last 5 in the past 48 hours. Weights display the last 5 within 7 days. Initial Wt: 03/15 127.3 kg 280 lb Current Wt: 03/15 127.3 kg 280 lb GENERAL: Overweight but appears well HEENT: Normocephalic CARDIOVASCULAR: Regular rate and rhythm normal blood pressure RESPIRATORY: Clear bilaterally ABDOMEN: Soft nontender no masses EXREMETIES: No edema NEUROLOGICAL: Intact PSYCHIATRIC: No signs of acute depression or anxiety LABS: No 36hr Lab Data DIAGNOSTICS: Latest ultrasound shows a normal-appearing right ovary. No free fluid. IMPRESSION: Chronic right lower pelvic pain possibly related to hemorrhagic cyst. Has had hysterectomy in the past. PLAN: Options were presented to the patient including using OCPs to control ovulation which may decrease the risk of future ovarian cyst. Other option included right oophorectomy. As she has had a previous hysterectomy with left oophorectomy performing a right oophorectomy will place her immediately in surgical menopause. This was discussed with the patient and given remoteness from menopause will need estrogen replacement therapy after surgery. Procedures, risks, and postoperative expectationswere reviewed with the patient. All questions were answered and consents were obtained. Digitally Signed by LYRIC THAPA MD on 03/15/2024 07:16 AM [facility]08-27-2024 Note ORIGINAL EXAMINATION: TRANSVAGINAL and transabdominal PELVIC ULTRASOUND 01/17/2024 10:17 am COMPARISON: 12/06/2023 HISTORY: ORDERING SYSTEM PROVIDED HISTORY: Reason for Exam: FU 7 mm complex cyst LMP: 10 years ago. . History of endometriosis. History of hysterectomy and left oophorectomy. 3/4 of the right ovary was also removed. All images are recorded and archived. FINDINGS: Transabdominal sonographic examination of the pelvis was performed. Transvaginal scanning was also performed. The uterus is surgically absent. Right ovary: The right ovary measures 4.1 x 2.9 x 2.8 cm. There is positive arterial and venous Doppler flow and waveforms to the right ovary. Normal follicular changes are noted. 2.4 x 1.8 x 1.4 cm well-circumscribed, complex right ovarian cystic lesion with an 1.2 cm internal solid component present posteriorly. This lesion now has a larger cystic component and the internal solid component has increased in size as well. No significant vascularity of this lesion is noted on color Doppler images. Left ovary: The left ovary is surgically absent. There is no free fluid within the cul-de-sac. IMPRESSION: 2.4 cm well-circumscribed complex right ovarian cystic lesion with a 1.2 cm internal solid component without significant internal vascularity on color Doppler images. This could represent a corpus luteal cyst or a collapsed dominant follicle. Consider repeat pelvic ultrasound in 8-12 weeks or as warranted to confirm stability. I have personally reviewed the images of this examination and agree with the resident's findings and interpretation. Interpreted by: Jerry Bates DO Preliminary Report By: Kenan Correia Electronically signed By Jerry Bates DO Dictated Date: 01/17/2024 3:19:31 PM Prelim Date: 01/17/2024 4:10:24 PM Sign Date: 01/17/2024 4:10:24 PM Ordering Provider: [facility]02-23-2024 Note ORIGINAL FROM: [place] [id number] PROCEDURE FOR: ELMO Tubbs [address] [place] [address] Home: PID#: [id number] Exam#: [id number] : 1995 Age: 28 TO: LYRIC THAPA MD [address] [place] [address] Fax: NO FAX EXAMINATION: ULTRASOUND OF THE RIGHT BREAST 07/15/2023 10:06 am TECHNIQUE: Color flow and real-time targeted ultrasound of the right breast were performed. COMPARISON: None. HISTORY: ORDERING SYSTEM PROVIDED HISTORY: Reason for Exam: lump FINDINGS: Ultrasonographic evaluation of the area of interest was performed at the 9 o'clock position 15 cm from the nipple. The toll service observer notes that this region is outside of the breast tissue. There is demonstration of a 0.7 x 0.3 x 0.4 cm echogenicity that is wider than tall without posterior acoustic features. No increased vascularity is noted. Overall appearance suggests an atypical lipoma that is probably benign. Other regions of the breast including a region of pain were visualized and no other sonographic abnormality is seen. IMPRESSION: 0.7 x 0.3 x 0.4 cm probably benign atypical lipoma seen of the 9 o'clock position 15 cm from the nipple. A 6 month follow up right breast ultrasound is recommended to demonstrate stability. BIRADS: MAMMOGRAM BI-RADS: 3: Probably benign RECALL: 6 month follow-up RECALL TYPE: Right US LETTER SENT: Probably Benign BI-RADS 3 Interpreted by: Umair Wright MD Preliminary Report By: Umair Wright MD Electronically signed By Umair Wright MD Dictated Date: 07/15/2023 10:35:30 AM Prelim Date: 07/15/2023 10:49:41 AM Sign Date: 07/15/2023 10:49:41 AM Ordering Provider: LYRIC THAPA CLINICAL: PALPABLE LUMP RIGHT BREAST FOCAL PAIN RIGHT BREAST. Checkering Machine Adjuster: MARY SUAREZ [facility] letter sent: Probably Benign BI-RADS 3 Ultrasound BI-RADS: 3 [facility] Plan note Future Scheduled Tests Laboratory* Pathology Timber Framer Request 06/16/23 * Thyroid Stimulating Hormone 06/16/23 * Free T4 06/16/23 * A1C Hemoglobin 06/16/23 * Free T3 06/16/23 * Glucose Level 06/16/23 Radiology* US Breast Right Complete 06/20/23 [facility] 01-25-2024 Evaluation + Plan note Future Appointments Future Scheduled Tests Laboratory* Pathology Timber Framer Request 06/16/23 * Thyroid Stimulating Hormone 06/16/23 * Free T4 06/16/23 * A1C Hemoglobin 06/16/23 * Free T3 06/16/23 * Glucose Level 06/16/23 Radiology* MRI Pelvis w/ + w/o Contrast 01/26/24 * US Breast Right Complete 06/20/23 [facility] 12-16-2022 Miscellaneous Notes* Addendum Note - Pari Boo APRN.CNP - 05/07/2022 11:57 AM ESTAddended by: PARI BOO on: 05/07/2022 11:57 AM Modules accepted: [facility] History of Present illness Narrative* Pari Boo APRN.AIR SUPPORT OPERATIONS OPERATOR - 05/07/2022 10:35 AM EST This note was created using NoteWriter. Subjective Elmo Nuno is a 27 year old female. 27 year old female with PMH migraines, asthma presents for illness. Acute onset of symptoms was one week ago +congestion +chills +cough, patient endorses more related to post nasal drainage. Denies N/V/D Denies fever or chills Denies SOB or dyspnea States her nephews family has tested positive for strep. Home COVID negative. Utilized Motrin this morning. The history is provided by the patient. No application support lead was used. URI She complains of cough. There is no chest tightness, difficulty breathing, frequent throat clearing, hemoptysis, hoarse voice, shortness of breath, sputum production or wheezing. This is a new problem. The current episode started yesterday. The problem occurs constantly. The problem has been unchanged. The cough is non-productive. Associated symptoms include ear pain, headaches, malaise/fatigue, nasal congestion, rhinorrhea, sneezing and a sore throat. Pertinent negatives include no appetite change, chest pain, dyspnea on exertion, fever, orthopnea, PND, postnasal drip, trouble swallowing or weight loss. Her symptoms are aggravated by nothing. Her symptoms are alleviated by nothing. She reports no improvement on treatment. There are no known risk factors for lung disease. Her past medicalhistory is significant for asthma. There is no history of bronchiectasis, bronchitis, COPD, emphysema or pneumonia. PAST MEDICAL HISTORY Diagnosis Date Asthma controlled Endometriosis 05/2014 STAGE 2 Endometriosis 08/11/2014 PMH - PAST MEDICAL HISTORY OF primary dysmenorea Polycystic ovarian disease Psychiatric disorder Depression Rheumatoid arthritis(714.0) dx at age 3 S/P laparoscopic hysterectomy 07/14/2014 S/P total hysterectomy 05/2014 Status post total hysterectomy 08/11/2014 PAST SURGICAL HISTORY Procedure Laterality Date EXTRACTION, ERUPTED TOOTH OR EXPOSED ROOT (ELEVATION AND/OR FORCEPS REMOVAL) LAPAROSCOPY W TOTAL HYSTERECTOMY UTERUS 250 GM/< 05/2014 LAPS SURG CHOLECYSTECTOMY W/CHOLANGIOGRAPHY 05/19/2010 OVARIAN CYSTECTOMY 11/2011 laprascopic right cystectomy TONSILLECTOMY PRIMARY/SECONDARY <AGE 10 Tonsillectomy age 3 ALLERGIES Acetaminophen-Codeine, Adhesive Tape (Rosins), Doxycycline, Environmental Allergies [Other], Hibiclens [Chlorhexidine Gluconate], and Penicillins MEDICATIONS albuterol HFA (PROVENTIL HFA, VENTOLIN HFA) 90 mcg/actuation inhaler Inhale 2 Puffs as instructed every 4 hours as needed. predniSONE (DELTASONE) 10 mg tablet Take 4 tabs daily for 3 days, then 2 tabs daily for 3 days, then 1 tab daily for 3 days with food. azithromycin (ZITHROMAX Z-ARELIS) 250 mg tablet Take 2 tablets day one, then, 1 tablet daily until gone. guaiFENesin (MUCINEX) 600 mg 12 hr tablet Take 2 tablets by mouth twice daily. benzonatate (TESSALON PERLES) 100 mg capsule Take 1 capsule by mouth three times daily as needed. (Patient not taking: Reported on 05/07/2022) oxymetazoline (AFRIN, OXYMETAZOLINE,) 0.05 % nasal spray Use 2 Sprays in the nose twice daily. pseudoephedrine-guaiFENesin (,MUCINEX-D,) 60-600 mg per tablet Take 1 tablet by mouth every 12 hours. (Patient not taking: Reported on 08/01/2019 ) clotrimazole-betamethasone (LOTRISONE) cream Apply 1 application to affected area twice daily. Apply for 14 days. (Patient not taking: Reported on 06/12/2018 ) docusate sodium (COLACE) 100 mg capsule Take 1 capsule by mouth twice daily. (Patient not taking: Reported on 06/12/2018 ) ibuprofen (MOTRIN) 600 mg tablet Take 1 tablet by mouth four times daily as needed. (Patient not taking: Reported on 08/01/2019 ) FAMILY HISTORY Problem Relation Age of Onset Asthma Mother Asthma Maternal Grandmother Heart Maternal Grandfather Ischemic Heart Disease Maternal Grandfather Ischemic Heart Disease Father Heart Father Diabetes Maternal Grandmother Diabetes Father Colon Cancer Paternal Grandfather Colon Cancer Father Diabetes Paternal Uncle Heart Paternal Uncle Heart Maternal Uncle Social History Tobacco Use Smoking status: Never Smokeless tobacco: Never Tobacco comments: mother smokes outside Substance Use Topics Alcohol use: No Drug use: No Review of Systems Constitutional: Positive for chills, fatigue and malaise/fatigue. Negative for appetite change, fever and weight loss. HENT: Positive for congestion, ear pain, rhinorrhea, sinus pain, sneezing and sore throat. Negativefor hoarse voice, postnasal drip and trouble swallowing. Eyes: Negative for pain, discharge, redness and itching. Respiratory: Positive for cough. Negative for apnea, hemoptysis, sputum production, chest tightness, shortness of breath and wheezing. Cardiovascular: Negative for chest pain, dyspnea on exertion, palpitations, leg swelling and PND. Gastrointestinal: Negative for abdominal pain, diarrhea, nausea and vomiting. Musculoskeletal: Negative for arthralgias and back pain. Skin: Negative for color change, pallor, rash and wound. Allergic/Immunologic: Negative for environmental allergies, food allergies and immunocompromised state. Neurological: Positive for headaches. Negative for dizziness and facial asymmetry. Hematological: Negative for adenopathy. Does not bruise/bleed easily. Psychiatric/Behavioral: Negative for agitation and behavioral problems. Objective BP 118/78 Pulse 103 Temp 37.2 C (99 F) (Tympanic) Resp 18 Wt 112.7 kg (248 lb 6.4 oz) 05/16/2014 SpO2 98% BMI 42.64 kg/m Physical Exam Vitals and nursing note reviewed. Constitutional: General: She is not in acute distress. Appearance: Normal appearance. She is normal weight. She is not ill-appearing, toxic-appearing or diaphoretic. HENT: Head: Normocephalic and atraumatic. Right Ear: Ear canal and external ear normal. Left Ear: Ear canal and external ear normal. Ears: Comments: Right ear with mild erythema. +right maxillary sinus TTP Nose: Nose normal. No congestion or rhinorrhea. Mouth/Throat: Mouth: Mucous membranes are moist. Pharynx: No oropharyngeal exudate or posterior oropharyngeal erythema. Eyes: General: Right eye: No discharge. Left eye: No discharge. Extraocular Movements: Extraocular movements intact. Conjunctiva/sclera: Conjunctivae normal. Pupils: Pupils are equal, round, and reactive to light. Cardiovascular: Rate and Rhythm: Normal rate and regular rhythm. Pulses: Normal pulses. Heart sounds: Normal heart sounds. No murmur heard. No friction rub. Pulmonary: Effort: Pulmonary effort is normal. No respiratory distress. Breath sounds: Normal breath sounds. No stridor. No wheezing, rhonchi or rales. Chest: Chest wall: No tenderness. Abdominal: General: Abdomen is flat. There is no distension. Palpations: Abdomen is soft. There is no mass. Tenderness: There is no abdominal tenderness. There is no right CVA tenderness, left CVA tenderness, guarding or rebound. Hernia: No hernia is present. Musculoskeletal: General: No swelling, tenderness, deformity or signs of injury. Normal range of motion. Cervical back: Normal range of motion and neck supple. No rigidity. Right lower leg: No edema. Left lower leg: No edema. Lymphadenopathy: Cervical: No cervical adenopathy. Skin: General: Skin is warm and dry. Capillary Refill: Capillary refill takes less than 2 seconds. Coloration: Skin is not jaundiced or pale. Findings: No bruising, erythema, lesion or rash. Neurological: General: No focal deficit present. Mental Status: She is alert and oriented to person, place, and time. Cranial Nerves: No cranial nerve deficit. Sensory: No sensory deficit. Motor: No weakness. Coordination: Coordination normal. Gait: Gait normal. Psychiatric: Mood and Affect: Mood normal. Behavior: Behavior normal. Thought Content: Thought content normal. Judgment: Judgment normal. Assessment and Plan ASSESSMENT/PLAN: 1. Pharyngitis, unspecified etiology - ICD9: 462, ICD10: J02.9 (primary diagnosis) - suspect viral - Alere Strep Test NEGATIVE, no culture pending - Discussed supportive care treatment with fluids, rest and analgesia. - The patient may also use OTC cough and cold meds as needed, warm salt water gargles, throat lozenges and/or OTC throat spray as needed, and nasal saline gtts and suction prn. - Contagious dz precautions discussed- including considered contagious until on antibiotics for 24 hours - The patient should follow up in 3-5 days if symptoms persist or worsen - Call back if drooling, increased temperature, symptoms of dehydration and/or still sick in one week - STREP A MOLECULAR (POC) 2. URI, acute - ICD9: 465.9, ICD10: J06.9 - Discussed viral etiology and rationale for treatment. - Symptomatic treatment with prn analgesia - Supportive care with fluids and rest 3. Otalgia of right ear - ICD9: 388.70, ICD10: H92.01 Right TM mild erythema Discussed with patient could be related to URI and viral illness Will prescribe RX Prednisone Patient given safety net ATB Augmentin (printed) if symptoms do not improve @ day 10. Pari Boo APRN.UBALDO [facility] Hospital Discharge instructions Patient Education 12/10/2021 14:33:04 Deep Vein Thrombosis Deep Vein Thrombosis Deep vein thrombosis (DVT) is a condition in which a blood clot forms in a deep vein, such as a lower leg, thigh, or arm vein. A clot is blood that has thickened into a gel or solid. This condition is dangerous. It can lead to serious and even life-threatening complications if the clot travels to the lungs and causes a blockage (pulmonary embolism). It can also damage veins in the leg. This can result in leg pain, swelling, discoloration, and sores (post-thrombotic syndrome). What are the causes? This condition may be caused by: A slowdown of blood flow. Damage to a vein. A condition that causes blood to clot more easily, such as an inherited clotting disorder. What increases the risk? The following factors may make you more likely to develop this condition: Being overweight. Being older, especially over age 60. Sitting or lying down for more than four hours. Being in the hospital. Lack of physical activity (sedentary lifestyle). , being in childbirth, or having recently given . Taking medicines that contain estrogen, such as medicines to prevent . Smoking. A history of any of the following: ?Blood clots or a blood clotting disease. ?Peripheral vascular disease. ?Inflammatory bowel disease. ?Cancer. ?Heart disease. ?Genetic conditions that affect how your blood clots, such as Factor V Leiden mutation. ?Neurological diseases that affect your legs (leg paresis). ?A recent injury, such as a car accident. ?Major or lengthy surgery. ?A central line placed inside a large vein. What are the signs or symptoms? Symptoms of this condition include: Swelling, pain, or tenderness in an arm or leg. Warmth, redness, or discoloration in an arm or leg. If the clot is in your leg, symptoms may be more noticeable or worse when you stand or walk. Some people may not develop any symptoms. How is this diagnosed? This condition is diagnosed with: A medical history and physical exam. Tests, such as: ?Blood tests. These are done to check how well your blood clots. ?Ultrasound. This is done to check for clots. ?Venogram. For this test, contrast dye is injected into a vein and X-rays are taken to check for any clots. How is this treated? Treatment for this condition depends on: The cause of your DVT. Your risk for bleeding or developing more clots. Any other medical conditions that you have. Treatment may include: Taking a blood thinner (anticoagulant). This type of medicine prevents clots from forming. It may be taken by mouth, injected under the skin, or injected through an IV (catheter). Injecting clot-dissolving medicines into the affected vein (catheter-directed thrombolysis). Having surgery. Surgery may be done to: ?Remove the clot. ?Place a filter in a large vein to catch blood clots before they reach the lungs. Some treatments may be continued for up to six months. Follow these instructions at home: If you are taking blood thinners: Take the medicine exactly as told by your health care provider. Some blood thinners need to be taken at the same time every day. Do not skip a dose. Talk with your health care provider before you take any medicines that contain aspirin or NSAIDs. These medicines increase your risk for dangerous bleeding. Ask your health care provider about foods and drugs that could change the way the medicine works (may interact). Avoid those things if your health care provider tells you to do so. Blood thinners can cause easy bruising and may make it difficult to stop bleeding. Because of this: ?Be very careful when using knives, scissors, or other sharp objects. ?Use an electric razor instead of a blade. ?Avoid activities that could cause injury or bruising, and follow instructions about how to preventfalls. Wear a medical alert bracelet or carry a card that lists what medicines you take. General instructions Take gcbf-sjp-huoudqr and prescription medicines only as told by your health care provider. Return to your normal activities as told by your health care provider. Ask your health care provider what activities are safe for you. Wear compression stockings if recommended by your health care provider. Keep all follow-up visits as told by your health care provider. This is important. How is this prevented? To lower your risk of developing this condition again: For 30 or more minutes every day, do an activity that: ?Involves moving your arms and legs. ?Increases your heart rate. When traveling for longer than four hours: ?Exercise your arms and legs every hour. ?Drink plenty of water. ?Avoid drinking alcohol. Avoid sitting or lying for a long time without moving your legs. If you have surgery or you are hospitalized, ask about ways to prevent blood clots. These may include taking frequent walks or using anticoagulants. Stay at a healthy weight. If you are a woman who is older than age 35, avoid unnecessary use of medicines that contain estrogen, such as some control pills. Do not use any products that contain nicotine or tobacco, such as cigarettes and e-cigarettes. Thisis especially important if you take estrogen medicines. If you need help quitting, ask your health care provider. Contact a health care provider if: You miss a dose of your blood thinner. Your menstrual period is heavier than usual. You have unusual bruising. Get help right away if: You have: ?New or increased pain, swelling, or redness in an arm or leg. ?Numbness or tingling in an arm or leg. ?Shortness of breath. ?Chest pain. ?A rapid or irregular heartbeat. ?A severe headache or confusion. ?A cut that will not stop bleeding. There is blood in your vomit, stool, or urine. You have a serious fall or accident, or you hit your head. You feel light-headed or dizzy. You cough up blood. These symptoms may represent a serious problem that is an emergency. Do not wait to see if the symptoms will go away. Get medical help right away. Call your local emergency services (911 in the [place] Do not drive yourself to the hospital. Summary Deep vein thrombosis (DVT) is a condition in which a blood clot forms in a deep vein, such as a lower leg, thigh, or arm vein. Symptoms can include swelling, warmth, pain, and redness in your leg or arm. This condition may be treated with a blood thinner (anticoagulant medicine), medicine that is injected to dissolve blood clots,compression stockings, or surgery. If you are prescribed blood thinners, take them exactly as told. This information is not intended to replace advice given to you by your health care provider. Make sure you discuss any questions you have with your health care provider. Document Released: 05/09/2006 Document Revised: 04/21/2018 Document Reviewed: 10/07/2017 [employer] Patient Education 2020 [employer]. 12/10/2021 14:33:04 Nausea and Vomiting, Adult, Olcb-fa-Yfss Nausea and Vomiting, Adult Nausea is feeling sick to your stomach or feeling that you are about to throw up (vomit). Vomiting is when food in your stomach is thrown up and out of the mouth. Throwing up can make you feel weak. It can also make you lose too much water in your body (get dehydrated). If you lose too much water in your body, you may: Feel tired. Feel thirsty. Have a dry mouth. Have cracked lips. Go pee (urinate) less often. Older adults and people with other diseases or a weak body defense system (immune system) are at higher risk for losing too much water in the body. If you feel sick to your stomach and you throw up, it is important to follow instructions from your doctor about how to take care of yourself. Follow these instructions at home: Watch your symptoms for any changes. Tell your doctor about them. Follow these instructions to carefor yourself at home. Eating and drinking Take an ORS (oral rehydration solution). This is a drink that is sold at pharmacies and stores. Drink clear fluids in small amounts as you are able, such as: ?Water. ?Ice chips. ?Fruit juice that has water added (diluted fruit juice). ?Low-calorie sports drinks. Eat bland, qwup-az-hzohak foods in small amounts as you are able, such as: ?Bananas. ?Applesauce. ?Rice. ?Low-fat (lean) meats. ?Dougherty. ?Crackers. Avoid drinking fluids that have a lot of sugar or caffeine in them. This includes energy drinks, sports drinks, and soda. Avoid alcohol. Avoid spicy or fatty foods. General instructions Take opul-hmm-iokwets and prescription medicines only as told by your doctor. Drink enough fluid to keep your pee (urine) pale yellow. Wash your hands often with soap and water. If you cannot use soap and water, use hand application engineer. Make sure that all people in your home wash their hands well and often. Rest at home while you get better. Watch your condition for any changes. Take slow and deep breaths when you feel sick to your stomach. Keep all follow-up visits as told by your doctor. This is important. Contact a doctor if: Your symptoms get worse. You have new symptoms. You have a fever. You cannot drink fluids without throwing up. You feel sick to your stomach for more than 2 days. You feel light-headed or dizzy. You have a headache. You have muscle cramps. You have a rash. You have pain while peeing. Get help right away if: You have pain in your chest, neck, arm, or jaw. You feel very weak or you pass out (faint). You throw up again and again. You have throw up that is bright red or looks like black coffee grounds. You have bloody or black poop (stools) or poop that looks like tar. You have a very bad headache, a stiff neck, or both. You have very bad pain, cramping, or bloating in your belly (abdomen). You have trouble breathing. You are breathing very quickly. Your heart is beating very quickly. Your skin feels cold and clammy. You feel confused. You have signs of losing too much water in your body, such as: ?Dark pee, very little pee, or no pee. ?Cracked lips. ?Dry mouth. ?Sunken eyes. ?Sleepiness. ?Weakness. These symptoms may be an emergency. Do not wait to see if the symptoms will go away. Get medical help right away. Call your local emergency services (911 in the [place] Do not drive yourself to the hospital. Summary Nausea is feeling sick to your stomach or feeling that you are about to throw up (vomit). Vomiting is when food in your stomach is thrown up and out of the mouth. Follow instructions from your doctor about eating and drinking to keep from losing too much water in your body. Take uqqe-ljh-fglcnyh and prescription medicines only as told by your doctor. Contact your doctor if your symptoms get worse or you have new symptoms. Keep all follow-up visits as told by your doctor. This is important. This information is not intended to replace advice given to you by your health care provider. Make sure you discuss any questions you have with your health care provider. Document Released: 10/25/2008 Document Revised: 08/31/2019 Document Reviewed: 10/17/2018 [employer] Patient Education 2020 [employer]. 12/10/2021 14:33:04 Sutured Wound Care, Kxzq-mq-Sddi Sutured Wound Care Sutures are stitches that can be used to close wounds. Taking care of your wound properly can help prevent pain and infection. It can also help your wound to heal more quickly. Follow instructions from your doctor about how to care for your sutured wound. Supplies needed: Soap and water. A clean bandage (dressing), if needed. Antibiotic ointment. A clean towel. How to care for your sutured wound Keep the wound completely dry for the first 24 hours or as long as told by your doctor. After 24 48hours, you may shower or bathe as told by your doctor. Do not soak the wound or put the wound completely under water until the sutures have been removed. After the first 24 hours, clean the wound once a day, or as often as your doctor tells you to. Takethese steps: ?Wash the wound with soap and water. ?Rinse the wound with water. Make sure to wash all the soap off. ?Pat the wound dry with a clean towel. Do not rub the wound. After cleaning the wound, put a thin layer of antibiotic ointment on the wound as told by your doctor. This will help: ?Prevent infection. ?Keep the bandage from sticking to the wound. Follow instructions from your doctor about how to change your bandage: ?Wash your hands with soap and water. If you cannot use soap and water, use hand application engineer. ?Change your bandage at least once a day, or as often as told by your doctor. If your dressing getswet or dirty, change it. ?Leave sutures, skin glue, or skin tape (adhesive) strips in place. They may need to stay in place for 2 weeks or longer. If tape strips get loose and curl up, you may trim the loose edges. Do not remove tape strips completely unless your doctor says it is okay. Check your wound every day for signs of infection. Watch for: ?Redness, swelling, or pain. ?Fluid or blood. ?Warmth. ?Pus or a bad smell. Have the sutures removed as told by your doctor. Follow these instructions at home: Medicines Take or apply dgel-ogo-zhtppsh and prescription medicines only as told by your doctor. If you were prescribed an antibiotic medicine or ointment, take or apply it as told by your doctor.Do not stop using the antibiotic even if you start to feel better. General instructions Cover your wound with clothes or put sunscreen on when you are outside. Use a sunscreen of at least30 SPF. Do not scratch or pick at your wound. Avoid stretching your wound. Raise (elevate) the injured area above the level of your heart while you are sitting or lying down,if possible. Drink enough fluids to keep your pee (urine) clear or pale yellow. Keep all follow-up visits as told by your doctor. This is important. Contact a doctor if: You were given a tetanus shot and you have any of the following at the site where the needle went in: ?Swelling. ?Very bad pain. ?Redness. ?Bleeding. Your wound breaks open. You have redness, swelling, or pain around your wound. You have fluid or blood coming from your wound. Your wound feels warm to the touch. You have a fever. You notice something coming out of your wound, such as wood or glass. You have pain that does not get better with medicine. The skin near your wound changes color. You need to change your bandage often due to a lot of fluid, blood, or pus coming from the wound. You get a new rash. You get numbness around the wound. Get help right away if: You have very bad swelling around your wound. You have pus or a bad smell coming from your wound. Your pain suddenly gets worse and is very bad. You have painful lumps near your wound or anywhere on your body. You have a red streak going away from your wound. The wound is on your hand or foot, and: ?You cannot move a finger or toe as you used to do. ?Your fingers or toes look pale or blue. ?You have numbness that spreads down your hand, foot, fingers, or toes. Summary Sutures are stitches that are used to close wounds. Taking care of your wound properly can help prevent pain and infection. Keep the wound completely dry for the first 24 hours or for as long as told by your doctor. After 24 48 hours, you may shower or bathe as directed by your doctor. This information is not intended to replace advice given to you by your health care provider. Make sure you discuss any questions you have with your health care provider. Document Released: 10/25/2008 Document Revised: 04/21/2018 Document Reviewed: 06/14/2017 [employer] Patient Education 2020 [employer]. 12/10/2021 14:33:04 General Anesthesia, Adult, Care After General Anesthesia, Adult, Care After This sheet gives you information about how to care for yourself after your procedure. Your health care provider may also give you more specific instructions. If you have problems or questions, contact your health care provider. What can I expect after the procedure? After the procedure, the following side effects are common: Pain or discomfort at the IV site. Nausea. Vomiting. Sore throat. Trouble concentrating. Feeling cold or chills. Weak or tired. Sleepiness and fatigue. Soreness and body aches. These side effects can affect parts of the body that were not involved in surgery. Follow these instructions at home: For at least 24 hours after the procedure: Have a responsible adult stay with you. It is important to have someone help care for you until youare awake and alert. Rest as needed. Do not: ?Participate in activities in which you could fall or become injured. ?Drive. ?Use heavy machinery. ?Drink alcohol. ?Take sleeping pills or medicines that cause drowsiness. ?Make important decisions or sign legal documents. ?Take care of children on your own. Eating and drinking Follow any instructions from your health care provider about eating or drinking restrictions. When you feel hungry, start by eating small amounts of foods that are soft and easy to digest (bland), such as toast. Gradually return to your regular diet. Drink enough fluid to keep your urine pale yellow. If you vomit, rehydrate by drinking water, juice, or clear broth. General instructions If you have sleep apnea, surgery and certain medicines can increase your risk for breathing problems. Follow instructions from your health care provider about wearing your sleep device: ?Anytime you are sleeping, including during daytime naps. ?While taking prescription pain medicines, sleeping medicines, or medicines that make you drowsy. Return to your normal activities as told by your health care provider. Ask your health care provider what activities are safe for you. Take gdkw-jyz-pzxjrgg and prescription medicines only as told by your health care provider. If you smoke, do not smoke without supervision. Keep all follow-up visits as told by your health care provider. This is important. Contact a health care provider if: You have nausea or vomiting that does not get better with medicine. You cannot eat or drink without vomiting. You have pain that does not get better with medicine. You are unable to pass urine. You develop a skin rash. You have a fever. You have redness around your IV site that gets worse. Get help right away if: You have difficulty breathing. You have chest pain. You have blood in your urine or stool, or you vomit blood. Summary After the procedure, it is common to have a sore throat or nausea. It is also common to feel tired. Have a responsible adult stay with you for the first 24 hours after general anesthesia. It is important to have someone help care for you until you are awake and alert. When you feel hungry, start by eating small amounts of foods that are soft and easy to digest (bland), such as toast. Gradually return to your regular diet. Drink enough fluid to keep your urine pale yellow. Return to your normal activities as told by your health care provider. Ask your health care provider what activities are safe for you. This information is not intended to replace advice given to you by your health care provider. Make sure you discuss any questions you have with your health care provider. Document Released: 08/15/2001 Document Revised: 05/12/2018 Document Reviewed: 12/23/2017 [employer] Patient Education 2020 [employer]. 12/10/2021 13:10:31 Diagnostic Laparoscopy, Care After Diagnostic Laparoscopy, Care After This sheet gives you information about how to care for yourself after your procedure. Your health care provider may also give you more specific instructions. If you have problems or questions, contact your health care provider. What can I expect after the procedure? After the procedure, it is common to have: Mild discomfort in the abdomen. Sore throat. Women who have laparoscopy with pelvic examination may have mild cramping and fluid coming from thevagina for a few days after the procedure. Follow these instructions at home: Medicines Take pxjm-aiv-amgwpfh and prescription medicines only as told by your health care provider. If you were prescribed an antibiotic medicine, take it as told by your health care provider. Do notstop taking the antibiotic even if you start to feel better. Driving Do not drive for 24 hours if you were given a medicine to help you relax (sedative) during your procedure. Do not drive or use heavy machinery while taking prescription pain medicine. Bathing Do not take baths, swim, or use a hot tub until your health care provider approves. You may take showers. Incision care Follow instructions from your health care provider about how to take care of your incisions. Make sure you: ?Wash your hands with soap and water before you change your bandage (dressing). If soap and water are not available, use hand application engineer. ?Change your dressing as told by your health care provider. ?Leave stitches (sutures), skin glue, or adhesive strips in place. These skin closures may need to stay in place for 2 weeks or longer. If adhesive strip edges start to loosen and curl up, you may trim the loose edges. Do not remove adhesive strips completely unless your health care provider tells you to do that. Check your incision areas every day for signs of infection. Check for: ?Redness, swelling, or pain. ?Fluid or blood. ?Warmth. ?Pus or a bad smell. Activity Return to your normal activities as told by your health care provider. Ask your health care provider what activities are safe for you. Do not lift anything that is heavier than 10 lb (4.5 kg), or the limit that you are told, until your health care provider says that it is safe. General instructions To prevent or treat constipation while you are taking prescription pain medicine, your health care provider may recommend that you: ?Drink enough fluid to keep your urine pale yellow. ?Take rsho-nxg-asiltlr or prescription medicines. ?Eat foods that are high in fiber, such as fresh fruits and vegetables, whole grains, and beans. ?Limit foods that are high in fat and processed sugars, such as fried and sweet foods. Do not use any products that contain nicotine or tobacco, such as cigarettes and e-cigarettes. If you need help quitting, ask your health care provider. Keep all follow-up visits as told by your health care provider. This is important. Contact a health care provider if: You develop shoulder pain. You feel lightheaded or faint. You are unable to pass gas or have a bowel movement. You feel nauseous or you vomit. You develop a rash. You have redness, swelling, or pain around any incision. You have fluid or blood coming from any incision. Any incision feels warm to the touch. You have pus or a bad smell coming from any incision. You have a fever or chills. Get help right away if: You have severe pain. You have vomiting that does not go away. You have heavy bleeding from the vagina. Any incision opens. You have trouble breathing. You have chest pain. Summary After the procedure, it is common to have mild discomfort in the abdomen and a sore throat. Check your incision areas every day for signs of infection. Return to your normal activities as told by your health care provider. Ask your health care provider what activities are safe for you. This information is not intended to replace advice given to you by your health care provider. Make sure you discuss any questions you have with your health care provider. Document Released: 04/19/2016 Document Revised: 04/21/2018 Document Reviewed: 11/02/2017 [employer] Patient Education [facility] Follow Up Care 12/07/2021 08:37:12 With:ALANIS JACINTO, LYRIC Rockwell Address: [address] [place] [address] [facility] [place] [address]- [phone] When: Unknown Comments:please schedule a postoperative appointment on 01/14/2022 [facility] 07-21-2022 Anesthesiology Consult note Patient: ELMO NUNO Age: 26 years Sex: Female : 1995 Associated Diagnoses: None Author: JARRED BRITO Assessment Postanesthesia assessment Mental status: alert & oriented x 4. Respiratory function: lungs are clear to auscultation. Respiratory support: none. CV function: Normal rate. Cardiovascular support: none. Pain. Nausea status: denies nausea. Postoperative hydration status: within normal limits. Digitally Signed by JARRED BRITO on 12/10/2021 04:10 PM [facility]07-21-2022 Summary of episode note Discharge Instructions Thank you for allowing [facility] to assist you with your healthcare needs. The following is importantdischarge information regarding your hospital visit. Your Care Team PHYSICIAN, NONE Your Diagnosis S/P laparoscopy Pelvic pain Right ovarian cyst What to do next Follow Up Appointments Follow Up with LYRIC THAPA MD When Why: please schedule a postoperative appointment on 01/14/2022 Where: [address] [facility] [address] [facility] [place] [address]- [phone] The Following Activity and Diet Have Been Ordered for You No qualifying data available. No qualifying data available. The Following Equipment Has Been Ordered for You No qualifying data available. The Following Treatments Have Been Ordered for You Discharge Labs No qualifying data available. Discharge Radiology No qualifying data available. Other Therapies No qualifying data available. Post Acute Orders No qualifying data available. Someone Will Contact You Regarding These Home Health Referrals No home referrals have been ordered for you. No one will call you. Allergies chlorhexidine topical (hives) codeine (hives) penicillin (hives) Medications Please ask your primary doctor or pharmacist before taking any other medication not listed, including over the counter drugs, herbal medications, vitamins and or supplements as they may interact withyour home medications. What How Much When Why Instructions Last Dose New ibuprofen (ibuprofen 600 mg oral tablet) 1 tab(s) by mouth Every 6 hours as needed for for pain Duration: 7 Days Take with food or milk. Pickup at [id number] Unchanged acetaminophen-oxyCODONE (Percocet 5 mg-325 mg oral tablet) 2 tab(s) by mouth Every 6 hours as needed for for pain Pelvic pain Right ovarian cyst Duration: 4 Days Pickup at [facility] Pharmacy Information [facility]: [id number] [place], [place] [phone] Please take this list to your next doctor s visit. Bring all medications you take, including over the counter medications, herbals and other supplements with you to your doctor s visit. Patients and families are reminded to discard old lists and to update any records with all medication providers or retail pharmacies. Education Materials Deep Vein Thrombosis Deep vein thrombosis (DVT) is a condition in which a blood clot forms in a deep vein, such as a lower leg, thigh, or arm vein. A clot is blood that has thickened into a gel or solid. This condition is dangerous. It can lead to serious and even life-threatening complications if the clot travels to the lungs and causes a blockage (pulmonary embolism). It can also damage veins in the leg. This can result in leg pain, swelling, discoloration, and sores (post-thrombotic syndrome). What are the causes? This condition may be caused by: A slowdown of blood flow. Damage to a vein. A condition that causes blood to clot more easily, such as an inherited clotting disorder. What increases the risk? The following factors may make you more likely to develop this condition: Being overweight. Being older, especially over age 60. Sitting or lying down for more than four hours. Being in the hospital. Lack of physical activity (sedentary lifestyle). , being in childbirth, or having recently given . Taking medicines that contain estrogen, such as medicines to prevent . Smoking. A history of any of the following: ? Blood clots or a blood clotting disease. ? Peripheral vascular disease. ? Inflammatory bowel disease. ? Cancer. ? Heart disease. ? Genetic conditions that affect how your blood clots, such as Factor V Leiden mutation. ? Neurological diseases that affect your legs (leg paresis). ? A recent injury, such as a car accident. ? Major or lengthy surgery. ? A central line placed inside a large vein. What are the signs or symptoms? Symptoms of this condition include: Swelling, pain, or tenderness in an arm or leg. Warmth, redness, or discoloration in an arm or leg. If the clot is in your leg, symptoms may be more noticeable or worse when you stand or walk. Some people may not develop any symptoms. How is this diagnosed? This condition is diagnosed with: A medical history and physical exam. Tests, such as: ? Blood tests. These are done to check how well your blood clots. ? Ultrasound. This is done to check for clots. ? Venogram. For this test, contrast dye is injected into a vein and X-rays are taken to check for anyclots. How is this treated? Treatment for this condition depends on: The cause of your DVT. Your risk for bleeding or developing more clots. Any other medical conditions that you have. Treatment may include: Taking a blood thinner (anticoagulant). This type of medicine prevents clots from forming. It may be taken by mouth, injected under the skin, or injected through an IV (catheter). Injecting clot-dissolving medicines into the affected vein (catheter-directed thrombolysis). Having surgery. Surgery may be done to: ? Remove the clot. ? Place a filter in a large vein to catch blood clots before they reach the lungs. Some treatments may be continued for up to six months. Follow these instructions at home: If you are taking blood thinners: Take the medicine exactly as told by your health care provider. Some blood thinners need to be taken at the same time every day. Do not skip a dose. Talk with your health care provider before you take any medicines that contain aspirin or NSAIDs. These medicines increase your risk for dangerous bleeding. Ask your health care provider about foods and drugs that could change the way the medicine works (may interact). Avoid those things if your health care provider tells you to do so. Blood thinners can cause easy bruising and may make it difficult to stop bleeding. Because of this: ? Be very careful when using knives, scissors, or other sharp objects. ? Use an electric razor instead of a blade. ? Avoid activities that could cause injury or bruising, and follow instructions about how to prevent falls. Wear a medical alert bracelet or carry a card that lists what medicines you take. General instructions Take xzxp-qae-ugmebhr and prescription medicines only as told by your health care provider. Return to your normal activities as told by your health care provider. Ask your health care provider what activities are safe for you. Wear compression stockings if recommended by your health care provider. Keep all follow-up visits as told by your health care provider. This is important. How is this prevented? To lower your risk of developing this condition again: For 30 or more minutes every day, do an activity that: ? Involves moving your arms and legs. ? Increases your heart rate. When traveling for longer than four hours: ? Exercise your arms and legs every hour. ? Drink plenty of water. ? Avoid drinking alcohol. Avoid sitting or lying for a long time without moving your legs. If you have surgery or you are hospitalized, ask about ways to prevent blood clots. These may include taking frequent walks or using anticoagulants. Stay at a healthy weight. If you are a woman who is older than age 35, avoid unnecessary use of medicines that contain estrogen, such as some control pills. Do not use any products that contain nicotine or tobacco, such as cigarettes and e-cigarettes. Thisis especially important if you take estrogen medicines. If you need help quitting, ask your health care provider. Contact a health care provider if: You miss a dose of your blood thinner. Your menstrual period is heavier than usual. You have unusual bruising. Get help right away if: You have: ? New or increased pain, swelling, or redness in an arm or leg. ? Numbness or tingling in an arm or leg. ? Shortness of breath. ? Chest pain. ? A rapid or irregular heartbeat. ? A severe headache or confusion. ? A cut that will not stop bleeding. There is blood in your vomit, stool, or urine. You have a serious fall or accident, or you hit your head. You feel light-headed or dizzy. You cough up blood. These symptoms may represent a serious problem that is an emergency. Do not wait to see if the symptoms will go away. Get medical help right away. Call your local emergency services (911 in the [place] Do not drive yourself to the hospital. Summary Deep vein thrombosis (DVT) is a condition in which a blood clot forms in a deep vein, such as a lower leg, thigh, or arm vein. Symptoms can include swelling, warmth, pain, and redness in your leg or arm. This condition may be treated with a blood thinner (anticoagulant medicine), medicine that is injected to dissolve blood clots,compression stockings, or surgery. If you are prescribed blood thinners, take them exactly as told. This information is not intended to replace advice given to you by your health care provider. Make sure you discuss any questions you have with your health care provider. Document Released: 05/09/2006 Document Revised: 04/21/2018 Document Reviewed: 10/07/2017 [employer] Patient Education 2020 [employer] Nausea and Vomiting, Adult Nausea is feeling sick to your stomach or feeling that you are about to throw up (vomit). Vomiting is when food in your stomach is thrown up and out of the mouth. Throwing up can make you feel weak. It can also make you lose too much water in your body (get dehydrated). If you lose too much water in your body, you may: Feel tired. Feel thirsty. Have a dry mouth. Have cracked lips. Go pee (urinate) less often. Older adults and people with other diseases or a weak body defense system (immune system) are at higher risk for losing too much water in the body. If you feel sick to your stomach and you throw up, it is important to follow instructions from your doctor about how to take care of yourself. Follow these instructions at home: Watch your symptoms for any changes. Tell your doctor about them. Follow these instructions to carefor yourself at home. Eating and drinking Take an ORS (oral rehydration solution). This is a drink that is sold at pharmacies and stores. Drink clear fluids in small amounts as you are able, such as: ? Water. ? Ice chips. ? Fruit juice that has water added (diluted fruit juice). ? Low-calorie sports drinks. Eat bland, ksnk-lp-yrmnvh foods in small amounts as you are able, such as: ? Bananas. ? Applesauce. ? Rice. ? Low-fat (lean) meats. ? Dougherty. ? Crackers. Avoid drinking fluids that have a lot of sugar or caffeine in them. This includes energy drinks, sports drinks, and soda. Avoid alcohol. Avoid spicy or fatty foods. General instructions Take wicd-rmt-iflmumm and prescription medicines only as told by your doctor. Drink enough fluid to keep your pee (urine) pale yellow. Wash your hands often with soap and water. If you cannot use soap and water, use hand application engineer. Make sure that all people in your home wash their hands well and often. Rest at home while you get better. Watch your condition for any changes. Take slow and deep breaths when you feel sick to your stomach. Keep all follow-up visits as told by your doctor. This is important. Contact a doctor if: Your symptoms get worse. You have new symptoms. You have a fever. You cannot drink fluids without throwing up. You feel sick to your stomach for more than 2 days. You feel light-headed or dizzy. You have a headache. You have muscle cramps. You have a rash. You have pain while peeing. Get help right away if: You have pain in your chest, neck, arm, or jaw. You feel very weak or you pass out (faint). You throw up again and again. You have throw up that is bright red or looks like black coffee grounds. You have bloody or black poop (stools) or poop that looks like tar. You have a very bad headache, a stiff neck, or both. You have very bad pain, cramping, or bloating in your belly (abdomen). You have trouble breathing. You are breathing very quickly. Your heart is beating very quickly. Your skin feels cold and clammy. You feel confused. You have signs of losing too much water in your body, such as: ? Dark pee, very little pee, or no pee. ? Cracked lips. ? Dry mouth. ? Sunken eyes. ? Sleepiness. ? Weakness. These symptoms may be an emergency. Do not wait to see if the symptoms will go away. Get medical help right away. Call your local emergency services (911 in the [place] Do not drive yourself to the hospital. Summary Nausea is feeling sick to your stomach or feeling that you are about to throw up (vomit). Vomiting is when food in your stomach is thrown up and out of the mouth. Follow instructions from your doctor about eating and drinking to keep from losing too much water in your body. Take gatd-hbx-chohiwg and prescription medicines only as told by your doctor. Contact your doctor if your symptoms get worse or you have new symptoms. Keep all follow-up visits as told by your doctor. This is important. This information is not intended to replace advice given to you by your health care provider. Make sure you discuss any questions you have with your health care provider. Document Released: 10/25/2008 Document Revised: 08/31/2019 Document Reviewed: 10/17/2018 [email or web address] Patient Education 2020 [employer] Sutured Wound Care Sutures are stitches that can be used to close wounds. Taking care of your wound properly can help prevent pain and infection. It can also help your wound to heal more quickly. Follow instructions from your doctor about how to care for your sutured wound. Supplies needed: Soap and water. A clean bandage (dressing), if needed. Antibiotic ointment. A clean towel. How to care for your sutured wound Keep the wound completely dry for the first 24 hours or as long as told by your doctor. After 24 48hours, you may shower or bathe as told by your doctor. Do not soak the wound or put the wound completely under water until the sutures have been removed. After the first 24 hours, clean the wound once a day, or as often as your doctor tells you to. Takethese steps: ? Wash the wound with soap and water. ? Rinse the wound with water. Make sure to wash all the soap off. ? Pat the wound dry with a clean towel. Do not rub the wound. After cleaning the wound, put a thin layer of antibiotic ointment on the wound as told by your doctor. This will help: ? Prevent infection. ? Keep the bandage from sticking to the wound. Follow instructions from your doctor about how to change your bandage: ? Wash your hands with soap and water. If you cannot use soap and water, use hand application engineer. ? Change your bandage at least once a day, or as often as told by your doctor. If your dressing gets wet or dirty, change it. ? Leave sutures, skin glue, or skin tape (adhesive) strips in place. They may need to stay in place for 2 weeks or longer. If tape strips get loose and curl up, you may trim the loose edges. Do not remove tape strips completely unless your doctor says it is okay. Check your wound every day for signs of infection. Watch for: ? Redness, swelling, or pain. ? Fluid or blood. ? Warmth. ? Pus or a bad smell. Have the sutures removed as told by your doctor. Follow these instructions at home: Medicines Take or apply tdsi-lgm-ollhcwo and prescription medicines only as told by your doctor. If you were prescribed an antibiotic medicine or ointment, take or apply it as told by your doctor.Do not stop using the antibiotic even if you start to feel better. General instructions Cover your wound with clothes or put sunscreen on when you are outside. Use a sunscreen of at least30 SPF. Do not scratch or pick at your wound. Avoid stretching your wound. Raise (elevate) the injured area above the level of your heart while you are sitting or lying down,if possible. Drink enough fluids to keep your pee (urine) clear or pale yellow. Keep all follow-up visits as told by your doctor. This is important. Contact a doctor if: You were given a tetanus shot and you have any of the following at the site where the needle went in: ? Swelling. ? Very bad pain. ? Redness. ? Bleeding. Your wound breaks open. You have redness, swelling, or pain around your wound. You have fluid or blood coming from your wound. Your wound feels warm to the touch. You have a fever. You notice something coming out of your wound, such as wood or glass. You have pain that does not get better with medicine. The skin near your wound changes color. You need to change your bandage often due to a lot of fluid, blood, or pus coming from the wound. You get a new rash. You get numbness around the wound. Get help right away if: You have very bad swelling around your wound. You have pus or a bad smell coming from your wound. Your pain suddenly gets worse and is very bad. You have painful lumps near your wound or anywhere on your body. You have a red streak going away from your wound. The wound is on your hand or foot, and: ? You cannot move a finger or toe as you used to do. ? Your fingers or toes look pale or blue. ? You have numbness that spreads down your hand, foot, fingers, or toes. Summary Sutures are stitches that are used to close wounds. Taking care of your wound properly can help prevent pain and infection. Keep the wound completely dry for the first 24 hours or for as long as told by your doctor. After 24 48 hours, you may shower or bathe as directed by your doctor. This information is not intended to replace advice given to you by your health care provider. Make sure you discuss any questions you have with your health care provider. Document Released: 10/25/2008 Document Revised: 04/21/2018 Document Reviewed: 06/14/2017 [employer] Patient Education 2020 [employer] General Anesthesia, Adult, Care After This sheet gives you information about how to care for yourself after your procedure. Your health care provider may also give you more specific instructions. If you have problems or questions, contact your health care provider. What can I expect after the procedure? After the procedure, the following side effects are common: Pain or discomfort at the IV site. Nausea. Vomiting. Sore throat. Trouble concentrating. Feeling cold or chills. Weak or tired. Sleepiness and fatigue. Soreness and body aches. These side effects can affect parts of the body that were not involved in surgery. Follow these instructions at home: For at least 24 hours after the procedure: Have a responsible adult stay with you. It is important to have someone help care for you until youare awake and alert. Rest as needed. Do not: ? Participate in activities in which you could fall or become injured. ? Drive. ? Use heavy machinery. ? Drink alcohol. ? Take sleeping pills or medicines that cause drowsiness. ? Make important decisions or sign legal documents. ? Take care of children on your own. Eating and drinking Follow any instructions from your health care provider about eating or drinking restrictions. When you feel hungry, start by eating small amounts of foods that are soft and easy to digest (bland), such as toast. Gradually return to your regular diet. Drink enough fluid to keep your urine pale yellow. If you vomit, rehydrate by drinking water, juice, or clear broth. General instructions If you have sleep apnea, surgery and certain medicines can increase your risk for breathing problems. Follow instructions from your health care provider about wearing your sleep device: ? Anytime you are sleeping, including during daytime naps. ? While taking prescription pain medicines, sleeping medicines, or medicines that make you drowsy. Return to your normal activities as told by your health care provider. Ask your health care provider what activities are safe for you. Take sydv-mwa-mvnfeaq and prescription medicines only as told by your health care provider. If you smoke, do not smoke without supervision. Keep all follow-up visits as told by your health care provider. This is important. Contact a health care provider if: You have nausea or vomiting that does not get better with medicine. You cannot eat or drink without vomiting. You have pain that does not get better with medicine. You are unable to pass urine. You develop a skin rash. You have a fever. You have redness around your IV site that gets worse. Get help right away if: You have difficulty breathing. You have chest pain. You have blood in your urine or stool, or you vomit blood. Summary After the procedure, it is common to have a sore throat or nausea. It is also common to feel tired. Have a responsible adult stay with you for the first 24 hours after general anesthesia. It is important to have someone help care for you until you are awake and alert. When you feel hungry, start by eating small amounts of foods that are soft and easy to digest (bland), such as toast. Gradually return to your regular diet. Drink enough fluid to keep your urine pale yellow. Return to your normal activities as told by your health care provider. Ask your health care provider what activities are safe for you. This information is not intended to replace advice given to you by your health care provider. Make sure you discuss any questions you have with your health care provider. Document Released: 08/15/2001 Document Revised: 05/12/2018 Document Reviewed: 12/23/2017 [employer] Patient Education 2020 [employer]. Diagnostic Laparoscopy, Care After This sheet gives you information about how to care for yourself after your procedure. Your health care provider may also give you more specific instructions. If you have problems or questions, contact your health care provider. What can I expect after the procedure? After the procedure, it is common to have: Mild discomfort in the abdomen. Sore throat. Women who have laparoscopy with pelvic examination may have mild cramping and fluid coming from thevagina for a few days after the procedure. Follow these instructions at home: Medicines Take whru-rlm-lejtovg and prescription medicines only as told by your health care provider. If you were prescribed an antibiotic medicine, take it as told by your health care provider. Do notstop taking the antibiotic even if you start to feel better. Driving Do not drive for 24 hours if you were given a medicine to help you relax (sedative) during your procedure. Do not drive or use heavy machinery while taking prescription pain medicine. Bathing Do not take baths, swim, or use a hot tub until your health care provider approves. You may take showers. Incision care Follow instructions from your health care provider about how to take care of your incisions. Make sure you: ? Wash your hands with soap and water before you change your bandage (dressing). If soap and water are not available, use hand application engineer. ? Change your dressing as told by your health care provider. ? Leave stitches (sutures), skin glue, or adhesive strips in place. These skin closures may need to stay in place for 2 weeks or longer. If adhesive strip edges start to loosen and curl up, you may trim the loose edges. Do not remove adhesive strips completely unless your health care provider tells you to do that. Check your incision areas every day for signs of infection. Check for: ? Redness, swelling, or pain. ? Fluid or blood. ? Warmth. ? Pus or a bad smell. Activity Return to your normal activities as told by your health care provider. Ask your health care provider what activities are safe for you. Do not lift anything that is heavier than 10 lb (4.5 kg), or the limit that you are told, until your health care provider says that it is safe. General instructions To prevent or treat constipation while you are taking prescription pain medicine, your health care provider may recommend that you: ? Drink enough fluid to keep your urine pale yellow. ? Take jxha-vwa-twkoeyx or prescription medicines. ? Eat foods that are high in fiber, such as fresh fruits and vegetables, whole grains, and beans. ? Limit foods that are high in fat and processed sugars, such as fried and sweet foods. Do not use any products that contain nicotine or tobacco, such as cigarettes and e-cigarettes. If you need help quitting, ask your health care provider. Keep all follow-up visits as told by your health care provider. This is important. Contact a health care provider if: You develop shoulder pain. You feel lightheaded or faint. You are unable to pass gas or have a bowel movement. You feel nauseous or you vomit. You develop a rash. You have redness, swelling, or pain around any incision. You have fluid or blood coming from any incision. Any incision feels warm to the touch. You have pus or a bad smell coming from any incision. You have a fever or chills. Get help right away if: You have severe pain. You have vomiting that does not go away. You have heavy bleeding from the vagina. Any incision opens. You have trouble breathing. You have chest pain. Summary After the procedure, it is common to have mild discomfort in the abdomen and a sore throat. Check your incision areas every day for signs of infection. Return to your normal activities as told by your health care provider. Ask your health care provider what activities are safe for you. This information is not intended to replace advice given to you by your health care provider. Make sure you discuss any questions you have with your health care provider. Document Released: 04/19/2016 Document Revised: 04/21/2018 Document Reviewed: 11/02/2017 [employer] Patient Education 2020 [employer]. Additional Information VACCINATE! IT SAVES LIVES! Members of the community who have not yet received the COVID-19 vaccine and would like to receive it can visit one of [facility] vaccine clinics. There are many vaccine clinic locations within the [facility]. For locations and available times, please visit [email or web address].gov/. It is important to note that some COVID mobile vaccine clinics are held outdoors and may be canceled in rainy or stormy conditions. To learn more about pediatric vaccinations (ages 5-11), we invite you to visit the [facility] webpage. https://www.[email or web address].org/pages/7024-Yjvpt-Ffvkydqbeuq-Okstwicxau-Capxm-Qew stions.htmlTo learn more about the COVID-19 vaccine, we invite you to visit the [facility] website for a list of frequently asked questions. [email or web address] _[email or web address]-Questions.pdf [facility] Patient Portal Access Instructions: Stay connected with your healthcare team and access your personal medical information anytime with the [facility] Patient Portal.If you would like a full copy of your medical records, please contact the [facility] Medical Records Department, Tuesday through Tuesday between 8a.m. and 4:30p.m. Please follow the directions below to access the portal: 1.Access the email account you provided upon registration to the hospital.2.Look for an invitation email from [facility].3.Open the email and access the invitation link: Accept Invitation to [facility]4.Fill in the required hurt to create your account. Sign into www.[employer] with your username and password that you created in the above steps to stay up to date. You can then view a summary of results, a summary of your visits, and the ability to download your summaries to your computer or send the information securely to a physician. Remember that your healthcare information is confidential, so carefully consider who you will allow to register on the [facility] Patient Portal for access to your information. You can also access the [facility] Patient Portal on the [employer]. Simply click on Health Records under [employer] and then click on the [employer] logo. HOW TO SAFELY DISPOSE OF PRESCRIPTION MEDICATIONS Please use one of the following methods to safely dispose of your unused medications. 1.Use a drug disposal kit: the drug disposal pouch allows you to safely discard your old and unuseddrugs. Ask your nurse to give you one when you are discharged.2.Visit a local take-back location: Many local pharmacies and police departments have programs that collect old and unwanted prescriptiondrugs. Call your local pharmacy or go to http://[employer]/3J7Uk0h to find one close to you.3.Make use of household items: Use cat litter or old coffee grounds to dispose medications if other options arenot available. Mix your drugs with these household products, seal them in an airtight container andthrow it into the garbage. Call [facility]: [phone] to be sure your drugs can be disposed of in this way. Some medicines may require a different approach.4.Never flush your medications down the toilet. IF YOU HAVE BEEN PRESCRIBED AN OPIOID FOR PAIN If you have been prescribed an opioid (such as hydrocodone, oxycodone or morphine), it is critical to understand the possible side effects and risks of opioid pain medications. Even when taken as directed, opioids can have several side effects including: Tolerance, meaning you might need to take more of a medication for the same pain relief. Nausea, vomiting and/or constipation. Sleepiness, dizziness, dry mouth, confusion, depression or itching. Physical dependence, meaning you have withdrawal symptoms when a medication is stopped, can develop within a few days. KNOW YOUR RESPONSIBILITIES It is important to know exactly how much and how often to take the opioid pain medications you are prescribed. Never take opioids in higher amounts or more often than prescribed. Do not combine opioids with alcohol or other drugs that cause drowsiness, such as benzodiazepines, also known as benzos, including diazepam and alprazolam, muscle relaxants or sleep aids. Never sell or share prescription opioids. This is illegal. Store opioids in a secure place and out of reach of others (including children, family, friends and visitors). The last page of this document has been signed and retained as a CHART COPY. Signatures Patient Education Materials Deep Vein Thrombosis Nausea and Vomiting, Adult, Amnu-sx-Zihk Sutured Wound Care, Niir-ef-Kybl General Anesthesia, Adult, Care After Diagnostic Laparoscopy, Care After Medication Leaflets My discharge plan and instructions have been reviewed and explained to me and I,ELMO NUNO Lundswatitand my current condition and have read and understand these discharge instructions. I have received a written copy of the plan/instructions. If I have questions, I am aware that I should contact my doctor. Patient/Apple Checker Signature: Date/Time: Relationship to Patient: Witness Name/Signature: Date/Time: [facility]07-21-2022 Evaluation + Plan noteExtracted from: Title:Clinical Document Author:LYRIC THAPA MD Date:12/10/21 [facility] ADMISSION HISTORY AN D PHYSICIAL CHIEF COMPLAINT: Elmo is a 26-year-old 1 para 1 who presents with right lower quadrant pain and pelvic pain. She was recently seen in the emergency room at [facility] and had a CT scan done which showed a right pelvic possibly hemorrhagic cyst. She continues to experience pelvic pain which is not well controlled by ibuprofen. She was seen in my office and was placed on Percocet for pain. HISTORY OF PRESENT ILLNESS: Elmo has been experiencing right lower quadrant pain for some time. She does have cyclic pain which she experiences with monthly ovulation. She has a long history of endometriosis. She is status post hysterectomy and also left oophorectomy secondary to a large hemorrhagic cyst with torsion. In the office I performed a transvaginal ultrasound which revealed a large hemorrhagic cyst of the right ovary with free fluid present. We discussed possible options including exploratory laparoscopy with possible cystectomy versus possible right oophorectomy. REVIEW OF SYSTEMS: Right lower quadrant pelvic pain. No complaints of difficulties with urination or bowel movements. Otherwise review of systems is unremarkable ACTIVE PROBLEMS: (1) Pelvic pain ([id number]) MEDICATIONS: Active Inpt Meds: None Active PRN Meds: None One Time Meds: None Active IV Meds: Lactated Ringers Infusion 1,000 mL (LR 1,000 mL) Start: 12/10/21 6:00:00 EDT, Stop date 12/10/21 23:59:00 EDT, Rate: 20 mL/hr ALLERGIES: (3) chlorhexidine topical codeine penicillin FAMILY HISTORY: No significant family history pertaining to this admission SOCIAL HISTORY: Non-smoker nondrinker. No toxic habits. Supportive home environment. PHYSICAL EXAM: VITALS: No Data Available 24 Hr Tmax: No Data Available 36 Hr Tmax: No Data Available Vital Signs are the last 5 in the past 48 hours. Weights display the last 5 within 7 days. Initial Wt: No Data Available Current Wt: No Data Available GENERAL: Appears well HEENT: Normocephalic CARDIOVASCULAR: Regular rate and rhythm normal blood pressure RESPIRATORY: Clear bilaterally ABDOMEN: Soft no masses. Tender in the lower quadrants. No hernia present EXREMETIES: No edema or deformity NEUROLOGICAL: Intact PSYCHIATRIC: No overt signs of depression or anxiety LABS: No 36hr Lab Data DIAGNOSTICS: Ultrasound performed in the office reveals a large right ovarian cyst measuring approximately 5 cm with hemorrhagic component and free fluid present. Consistent with ruptured or rupturing hemorrhagic cyst. IMPRESSION: Painful right hemorrhagic ovarian cyst. PLAN: Pain is not well controlled using ibuprofen or Tylenol. Prescription for Percocet was given. Discussed options and decision made for exploratory laparoscopy with possible right ovarian cystectomy versus right oophorectomy. She understands the risk of losing her ovary and necessity for hormone replacement should that occur to prevent premature menopause. Procedures, risks, postoperative expectations were discussed with the patient today and informed consent was obtained. [facility] 07-21-2022 Anesthesiology Consult note Patient: ELMO NUNO Age: 26 years Sex: Female : 1995 Associated Diagnoses: None Author: JARRED BRITO APRN-BLOCK INSPECTOR Preoperative Information Time of last food or liquid consumption: 12/10/2021 00:00:00 Anesthesia history Patient's history: negative. Family's history: negative. Review of Systems Ear/Nose/Mouth/Throat: Negative. Respiratory: Negative. Cardiovascular: Negative. Gastrointestinal: MO. Genitourinary: Negative. Endocrine: Negative. Musculoskeletal: Negative. Integumentary: Negative. Neurologic: Negative. Health Status Allergies: Allergic Reactions (Selected) Severity Not Documented Chlorhexidine topical- Hives. Codeine- Hives. Penicillin- Hives., Allergies (3) ActiveReaction chlorhexidine topicalhives codeinehives penicillinhives Current medications: (Selected) Inpatient Medications Ordered Cleocin Phosphate: 600 mg, 50 mL, 100 mL/hr, IV Piggyback, PREOP pharm LR 1,000 mL: 20 mL/hr, Intravenous, Stop: 12/10/21 23:59:00 EDT Prescriptions Prescribed Percocet 5 mg-325 mg oral tablet: 2 tab(s), Oral, q6h, for 4 day(s), PRN: for pain, 24 tab(s), 0 Refill(s) ibuprofen 600 mg oral tablet: 600 mg, 1 tab(s), Oral, q6h, for 7 day(s), Take with food or milk., PRN: for pain, 30 tab(s), 0 Refill(s), Medications (2) Active Scheduled: (1) clindamycin PMX 600 mg 50 mL, IV Piggyback, PREOP pharm Continuous: (1) Lactated Ringers 1,000 mL 1,000 mL, Intravenous, 20 mL/hr PRN: (0) Problem list: Medical S/P laparoscopy / SNOMED CT 5932891577 / Confirmed Pelvic pain / SNOMED CT [id number] / Confirmed, Active Problems (2) Pelvic pain S/P laparoscopy Histories Past Medical History: No active or resolved past medical history items have been selected or recorded. Family History: Breast cancer Grandparent Heart disease Grandparent Father Heart attack Grandparent Diabetes Grandparent Father Colon cancer Father Grandparent Procedure history: Hysterectomy (321056588). Cholecystectomy ([id number]). Cyst of right ovary ([id number]). Cyst of left ovary ([id number]). Tonsillectomy with adenoidectomy (37394227). Social History Social & Psychosocial Habits Alcohol 12/03/2021 Use: Never Substance Abuse 12/03/2021 Use: Never Tobacco 12/03/2021 Tobacco Use: Never (less than 100 in l Home/Environment 12/10/2021 Domestic Concerns None Nutrition/Health 12/03/2021 Caffeine intake amount: 3 servings daily . Physical Examination Vital Signs 12/10/2021 13:25 EDT Heart Rate Monitored 121 bpm bpm Respiratory Rate 10 br/min br/min Systolic Blood Pressure NBP 85 mmHg mmHg Diastolic Blood Pressure NBP 47 mmHg mmHg 12/10/2021 13:20 EDT Heart Rate Monitored 136 bpm bpm Respiratory Rate 10 br/min br/min Systolic Blood Pressure NBP 83 mmHg mmHg Diastolic Blood Pressure NBP 65 mmHg mmHg 12/10/2021 13:15 EDT Heart Rate Monitored 96 bpm bpm Respiratory Rate 5 br/min br/min Systolic Blood Pressure NBP 98 mmHg mmHg Diastolic Blood Pressure NBP 67 mmHg mmHg 12/10/2021 13:10 EDT Heart Rate Monitored 88 bpm bpm Respiratory Rate 0 br/min br/min Systolic Blood Pressure NBP 117 mmHg mmHg Diastolic Blood Pressure NBP 76 mmHg mmHg 12/10/2021 11:09 EDT Temperature Temporal Artery 36.4 DegC Peripheral Pulse Rate 94 bpm Respiratory Rate 14 br/min Vital Signs(last 24 hrs) Last Charted Heart Rate [id number] bpm (DEC 10 13:25) Resp Rate 10 br/min (DEC 10 13:) SBP85 mmHg (DEC 10 13:) DBP47 mmHg (DEC 10:) Measurements from flowsheet : Measurements 12/10/2021 11:09 EDT Height 162.6 cm Height in inches 64 inch(es) Admission Weight 108 kg Weight Lbs 237.6 lb Weight Method Stated [place] Body Weight 54.74 kg Admission Body Mass Index 40.85 m2 Pain assessment: Pain Assessment 12/10/2021 11:09 EDT Primary Pain Intensity 7 Pain Scale Type 0-10 Pain scale . General: Alert and oriented. Airway: Normal temporomandibular joint mobility. Mallampati classification: III (soft palate, base of uvula visible). Head: Normocephalic. Dentition Evaluation: Own teeth. Neck: Supple. Respiratory: Lungs are clear to auscultation. Cardiovascular: Normal rate. Heart Sounds: Normal. Gastrointestinal: Soft. Musculoskeletal Normal range of motion. Integumentary: Intact. Neurologic: Alert, Oriented. Review / Management Results review: No qualifying data available , Lab results 12/10/2021 13:33 EDT SN - GCD - Post-operative Diagnosis RIGHT OVARIAN CYST SN - GCD - Case Level Level 3 12/10/2021 13:32 EDT SN - Proc - Actual Procedure EXPLORATORY LAPAROSCOPY WITH POSSIBLE RIGHT CYSTECTOMY, POSSIBLE RIGHT OOPHORECTOMY 12/10/2021 13:32 EDT SN - CTm - Surgery Start 12/10/2021 13:30 12/10/2021 13:32 EDT SN - CAt - Case Attendee SN - CAt - Case Attendee SN - CAt - Case Attendee SN - CAt - Case Attendee SN - CAt - Case Attendee SN - CAt - Case Attendee SN - CAt - Case Attendee SN - CAt - Case Attendee SN - CAt - Role Performed Grease Buffer 1 SN - CAt - Role Performed Internet Developer 1 SN - CAt - Role Performed Scrub 1 SN - CAt - Role Performed BLOCK INSPECTOR 12/10/2021 13:25 EDT Heart Rate Monitored 121 bpm bpm Respiratory Rate 10 br/min br/min Systolic Blood Pressure NBP 85 mmHg mmHg Diastolic Blood Pressure NBP 47 mmHg mmHg Oxygen Saturation 99.6 % % Set Rate Anes 10 br/min br/min 12/10/2021 13:20 EDT Heart Rate Monitored 136 bpm bpm Respiratory Rate 10 br/min br/min Systolic Blood Pressure NBP 83 mmHg mmHg Diastolic Blood Pressure NBP 65 mmHg mmHg Oxygen Saturation 98.9 % % Set Rate Anes 10 br/min br/min 12/10/2021 13:15 EDT Heart Rate Monitored 96 bpm bpm Respiratory Rate 5 br/min br/min Systolic Blood Pressure NBP 98 mmHg mmHg Diastolic Blood Pressure NBP 67 mmHg mmHg Oxygen Saturation 100 % % 12/10/2021 13:10 EDT Heart Rate Monitored 88 bpm bpm Respiratory Rate 0 br/min br/min Systolic Blood Pressure NBP 117 mmHg mmHg Diastolic Blood Pressure NBP 76 mmHg mmHg Oxygen Saturation 100 % % 12/10/2021 13:06 EDT SN - CAt - Case Attendee SN - CAt - Case Attendee SN - CAt - Role Performed Primary Surgeon 12/10/2021 11:26 EDT SN - Preop - CTm Pt Ready for OR/Proced 12/10/2021 11:24 12/10/2021 11:17 EDT Lactated Ringers Injection Begin Bag 1,000 mL mL 12/10/2021 11:09 EDT Height 162.6 cm Height in inches 64 inch(es) Admission Weight 108 kg Weight Lbs 237.6 lb Weight Method Stated [place] Body Weight 54.74 kg Admission Body Mass Index 40.85 m2 Temperature Temporal Artery 36.4 DegC Peripheral Pulse Rate 94 bpm Respiratory Rate 14 br/min Primary Pain Intensity 7 Pain Scale Type 0-10 Pain scale Monitor Alarms On and Limits Checked Nail Bed Color Mulino Capillary Refill < 2 seconds Heart Sounds ICU S1S2 Heart Rhythm Regular All Lobes Breath Sounds Clear Oxygen Therapy Room air Oxygen Saturation 98 % Abdomen Description Non-distended, Symmetric, Soft Abdomen Palpation Non-Tender, Soft Bowel Sounds All Quadrants Present Urinary Elimination Voiding, no difficulties Skin Temperature Warm Skin Description [place] Skin Integrity Intact IV Present Present Hand Right 12/10/2021 20 gauge Peripheral IV Activity: Insert new site Peripheral IV Dressing Condition: Clean, Dry, Intact Peripheral IV Dressing Activity: Transparent dressing Peripheral IV Line Status/Patency: Flushes easily Peripheral IV Line Care: Secured with tape Peripheral IV Site Condition: No complications Peripheral IV Equipment: Extension set, PRN Adaptor Peripheral IV Number of Attempts: 1 Extremity Movement Equal Characteristics of Speech Clear Level of Consciousness Alert, Arousable with minimal stimulation KAITLIN Yes Strength All Extremities Strong Affect/Behavior Appropriate, Calm, Cooperative Orientation Oriented x 4 Allergies Yes Gymnasium Teacher On Yes Consent Form Signed Yes Patient Dressed In Hospital gown, No undergarments Pre-op Preparation Undergarments removed CHG Preoperative Wash/Wipe Night before procedure, Day of procedure History & Physical Update On Chart Yes History & Physical On Chart Yes Obstructive Sleep Apnea Assess Completed Yes Orientation Assessment Oriented x 4 Activity Status ADL Awake Assistive Device None SCD On/Re-applied bilateral knee high NPO Status Maintained Standard Safety ID band on, Allergy Band on, Call device within reach, Bed in low position, Wheels locked, Upper/Half-Length side-rails up, Safety level maintained, Non-Slip footwear Demonstrates Correct Call Light Use Yes Allergy Band on and Verified Yes Blood Band on and Verified Yes Patient ID Band on and Verified Yes Implants Verified Yes Pacemaker/AICD Verified Yes Anesthesia Consent Signed Yes Blood Consent Signed Yes Last Fluid Intake 12/09/2021 23:00 Last Food Intake 12/09/2021 23:00 Last Void 12/10/2021 11:00 12/10/2021 11:08 EDT SN - Preop - CTm Pt in SDS Room 12/10/2021 11:02 12/10/2021 11:08 EDT Infectious Disease Symptoms Patient states no symptoms Safety Brochure Information Reviewed [facility] No Teaching Evaluation No further teaching needed Admission Note-Nursing Same Day Patient History (Modified) 12/10/2021 11:05 EDT ABO/Rh Interp O POS Antibody Screen Gel Negative ABSC 12/10/2021 8:11 EDT [place] History and Physical . Assessment and Plan [place] [employer]hesi[employer] (ASA) physical status classification: Class III. Anesthetic Preoperative Plan Premedication: intravenous. Anesthetic technique: General. Induction: intravenously. Maintenance airway: Oral endotracheal tube. Postoperative pain management: Per surgeon. Risks discussed: nausea, vomiting, sore throat. Informed consent: signed by patient. Digitally Signed by JARRED BRITO on 12/10/2021 01:37 PM [facility]07-21-2022 Note [facility] ADMISSION HISTORY AND PHYSICIAL CHIEF COMPLAINT: Elmo is a 26-year-old 1 para 1 who presents with right lower quadrant pain and pelvic pain. She was recently seen in the emergency room at [facility] and had a CT scan done which showed a right pelvic possibly hemorrhagic cyst. She continues to experience pelvic pain which is not well controlled by ibuprofen. She was seen in my office and was placed onPercocet for pain. HISTORY OF PRESENT ILLNESS: Elmo has been experiencing right lower quadrant pain for some time.She does have cyclic pain which she experiences with monthly ovulation. She has a long history of endometriosis. She is status post hysterectomy and also left oophorectomy secondary to a large hemorrhagic cyst with torsion. In the office I performed a transvaginal ultrasound which revealed a large hemorrhagic cyst of the right ovary with free fluid present. We discussed possible options includingexploratory laparoscopy with possible cystectomy versus possible right oophorectomy. REVIEW OF SYSTEMS: Right lower quadrant pelvic pain. No complaints of difficulties with urination or bowel movements. Otherwise review of systems is unremarkable ACTIVE PROBLEMS: (1) Pelvic pain ([id number]) MEDICATIONS: Active Inpt Meds: None Active PRN Meds: None One Time Meds: None Active IV Meds: Lactated Ringers Infusion 1,000 mL (LR 1,000 mL) Start: 12/10/21 6:00:00 EDT, Stop date 12/10/21 23:59:00 EDT, Rate: 20 mL/hr ALLERGIES: (3) chlorhexidine topical codeine penicillin FAMILY HISTORY: No significant family history pertaining to this admission SOCIAL HISTORY: Non-smoker nondrinker. No toxic habits. Supportive home environment. PHYSICAL EXAM: VITALS: No Data Available 24 Hr Tmax: No Data Available 36 Hr Tmax: No Data Available Vital Signs are the last 5 in the past 48 hours. Weights display the last 5 within 7 days. Initial Wt: No Data Available Current Wt: No Data Available GENERAL: Appears well HEENT: Normocephalic CARDIOVASCULAR: Regular rate and rhythm normal blood pressure RESPIRATORY: Clear bilaterally ABDOMEN: Soft no masses. Tender in the lower quadrants. No hernia present EXREMETIES: No edema or deformity NEUROLOGICAL: Intact PSYCHIATRIC: No overt signs of depression or anxiety LABS: No 36hr Lab Data DIAGNOSTICS: Ultrasound performed in the office reveals a large right ovarian cyst measuring approximately 5 cm with hemorrhagic component and free fluid present. Consistent with ruptured or rupturing hemorrhagic cyst. IMPRESSION: Painful right hemorrhagic ovarian cyst. PLAN: Pain is not well controlled using ibuprofen or Tylenol. Prescription for Percocet was given. Discussed options and decision made for exploratory laparoscopy with possible right ovarian cystectomy versus right oophorectomy. She understands the risk of losing her ovary and necessity for hormone replacement should that occur to prevent premature menopause. Procedures, risks, postoperative expectations were discussed with the patient today and informed consent was obtained. Digitally Signed by LYRIC THAPA MD on 12/10/2021 08:19 AM [facility]04-24-2014 History of Past illness Narrative* Problem Noted Date Resolved Date False labor 09/13/2013 02/22/2014 Decreased movement in , antepartu m 08/19/2013 02/22/2014 Abdominal pain complicating , antepartu m 07/25/2013 02/22/2014 H/O migraine during 06/28/2013 documented as of this encounter (statuses as of 05/07/2022) [facility] Evaluation + Plan note Future Appointments Appointment Date:01/16/2024 03:30:00 PM Scheduled Provider: Location:[facility] Appointment Type:US Breast Right Complete Future Scheduled Tests Laboratory* Pathology Timber Framer Request 06/16/23 * Thyroid Stimulating Hormone 06/16/23 * Free T4 06/16/23 * A1C Hemoglobin 06/16/23 * Free T3 06/16/23 * Glucose Level 06/16/23 Radiology* US Breast Right Complete 06/20/23 * US Breast Right Complete 01/16/24 [facility] Evaluation + Plan note Future Appointments Appointment Date:01/17/2024 10:00:00 AM Scheduled Provider: Location:[facility] Appointment Type:US Pelvis Non-OB W/Transvaginal Appointment Date:02/14/2024 01:30:00 PM Scheduled Provider:PARI LARA Location:[facility] Appointment Type: OV Future Scheduled Tests Laboratory* Pathology Timber Framer Request 06/16/23 * Thyroid Stimulating Hormone 06/16/23 * Free T4 06/16/23 * A1C Hemoglobin 06/16/23 * Free T3 06/16/23 * Glucose Level 06/16/23 Radiology* US Breast Right Complete 06/20/23 * US Pelvis Non-OB W/Transvaginal 01/17/24 [facility] Evaluation + Plan note Future Appointments Appointment Date:02/14/2024 01:30:00 PM Scheduled Provider:PARI LARA Location:[facility] Appointment Type: OV Future Scheduled Tests Laboratory* Pathology Timber Framer Request 06/16/23 * Thyroid Stimulating Hormone 06/16/23 * Free T4 06/16/23 * A1C Hemoglobin 06/16/23 * Free T3 06/16/23 * Glucose Level 06/16/23 Radiology* US Breast Right Complete 06/20/23 [facility] Evaluation + Plan note Future Appointments Appointment Date:02/14/2024 01:30:00 PM Scheduled Provider:PARI LARA Location:[facility] Appointment Type: OV Future Scheduled Tests Laboratory* Pathology Timber Framer Request 06/16/23 * Cancer Antigen 125 01/26/24 * Thyroid Stimulating Hormone 06/16/23 * Free T4 06/16/23 * A1C Hemoglobin 06/16/23 * Free T3 06/16/23 * Glucose Level 06/16/23 Radiology* MRI Pelvis w/ + w/o Contrast 01/26/24 * US Breast Right Complete 06/20/23 [facility] Evaluation + Plan note Future Appointments Appointment Date:02/14/2024 01:30:00 PM Scheduled Provider:PARI LARA Location:[facility] Appointment Type: OV Appointment Date:02/23/2024 02:30:00 PM Scheduled Provider: Location:[facility] Appointment Type:MA Mammogram Diagnostic Right w/ Damian Appointment Date:02/23/2024 03:00:00 PM Scheduled Provider: Location:[facility] Appointment Type:US Breast Right Limited Future Scheduled Tests Laboratory* Pathology Timber Framer Request 06/16/23 * Thyroid Stimulating Hormone 06/16/23 * Free T4 06/16/23 * A1C Hemoglobin 06/16/23 * Free T3 06/16/23 * Glucose Level 06/16/23 Radiology* MA Mammo Diagnostic Right w/ Damian 02/23/24 * US Breast Right Limited 02/23/24 * MRI Pelvis w/ + w/o Contrast 01/26/24 * US Breast Right Complete 06/20/23 [facility] Evaluation + Plan note Future Appointments Appointment Date:09/03/2024 10:00:00 AM Scheduled Provider:LYRIC THAPA MD Location:[facility] Appointment Type: OV Annual Exam Future Scheduled Tests Radiology* MA Mammo Screening Bilateral w/ Damian 08/06/24 * MRI Pelvis w/ + w/o Contrast 01/26/24 [facility] evaluahurw noteNo assessment information available [facility] Work Phone: evaluation note* Diagnosis Pharyngitis, unspecified etiology- Primary URI, acute Acute upper respiratory infections of unspecified site Otalgia of right ear Otalgia, unspecified documented in this encounter [facility] note* Diagnosis Rhinosinusitis- Primary Unspecified sinusitis (chronic) Acute cough [facility] No data available for this section [facility] Hospital Discharge instructions Additional Instructions Your CT showed no acute process. You do have a right ovarian cyst, but it has not ruptured. Follow-up with your BULK SEALER OPERATOR, and your primary care physician. Return with new or worsening symptoms.[facility] Work Phone: Hospital Discharge instructions No data available for this section [facility] Progress note No data available for this section [facility] Chief Complaint and Reason for Visit Chief Complaint ABD PAIN Advance Directives No Advanced Directives Records Found Advance Directive Response Recorded Date/ Time Advance Directives No December 13 10:39am Living Will No November 27, 2021 6 :07pm Power of Machine Staker No November 27, 2021 6:07pm Health Concerns Infection Onset Date Last Indicated Resolved Time COVID-19 Rule-Out 05/07/2022 05/07/2022 Summary Purpose Family History No Family History Records Found Additional Source Comments Goals (unrecognized section and content) Goals may be documented in a n alternate section No data available for this section No data available for this section No data available for this section No data available for this section No data available for this section No data available for this section No data available for this section No data available for this section No data available for this section No data available for this section No data available for this section No data available for this section Care Team (unrecognized sect ion and content) Care Team Personnel Name: PHYSICIAN, NONE Position: Physician Member Role: Primary Care Physician Care Team Related Persons Name: MAT NUNO Address: [address] [phone] Care Team Personnel Name: PHYSICIAN, NONE Position: Physician Member Role: Primary Care Physician Care Team Related Persons Name: MAT NUNO Address: [address] [phone] Source Comments (unrecognize d section and content) In the event this informatio n is protected by the Federal Confidentiality of Alcohol and Drug Abuse Patient Records regulations: The Federal rules restrict any use of the information to criminally investigate or prosecute any alcohol or drug abuse patient.[facility] the event this information is protected by the Federal Confidentiality of Alcohol and Drug Abuse Patient Records regulations: The Federal rules restrict any use of the information to criminally investigate or prosecute any alcohol or drug abuse patient.[facility] Reason for Visit (unrecogniz ed section and content) Reason Comments Pain, Throat Pt reported + Strep exposure, nasal congestion, (RT) ear pain x7 days. Reason Comments Cough Cough, fever, chills ,congestion and sinus x 2 weeks Patient Care team informatio n (unrecognized section and content) Care Team Personnel Name: PHYSICIAN, NONE Position: Physician Member Role: Primary Care Physician Care Team Related Persons Name: MAT NUNO Address: [place] [address] Care Team Personnel Name: PHYSICIAN, NONE Position: Physician Member Role: Primary Care Physician Care Team Related Persons Name: MAT NUNO Address: [address] [phone] Care Team Personnel Name: PHYSICIAN, NONE Position: Physician Member Role: Primary Care Physician Care Team Related Persons Name: MAT NUNO Address: [place] [phone] Care Team Personnel Name: PHYSICIAN, NONE Position: Physician Member Role: Primary Care Physician Care Team Related Persons Name: MAT NUNO Address: [address] [phone] Care Team Personnel Name: PHYSICIAN, NONE Position: Physician Member Role: Primary Care Physician Care Team Related Persons Name: MAT NUNO Address: Home [address] [place] [phone] Care Team Personnel Name: PHYSICIAN, NONE Position: Physician Member Role: Primary Care Physician Care Team Related Persons Name: MAT NUNO Address: Home [address] [place] [phone] Care Team Personnel Name: PHYSICIAN, NONE Position: Physician Member Role: Primary Care Physician Care Team Related Persons Name: MAT NUNO Address: Home [address] [place] [phone] Care Team Personnel Name: PHYSICIAN, NONE Position: Physician Member Role: Primary Care Physician Care Team Related Persons Name: MAT NUNO Address: [place] [address] [place] [phone] Care Team Personnel Name: PHYSICIAN, NONE Position: Physician Member Role: Primary Care Physician Care Team Related Persons Name: MAT NUNO Address: Home [address] [place] [phone] Care Team Personnel Name: PHYSICIAN, NONE Position: Physician Member Role: Primary Care Physician Care Team Related Persons Name: MAT NUNO INFORMATION SOURCE (unrecogn ized section and content) DATE CREATED AUTHOR 01/20/2024 [facility] ([place]) DATE CREATED AUTHOR AUTHOR'S ORGANIZ ATION 03/20/2024 [facility] DATE CREATED AUTHOR AUTHOR'S ORGANIZ ATION 04/24/2024 [facility] DATE CREATED AUTHOR AUTHOR'S ORGANIZ ATION 08/18/2024 [facility] DATE CREATED AUTHOR AUTHOR'S ORGANIZ ATION 01/26/2025 [facility] FOR RECORDS PERTAINING TO PATIENTS WHO ARE OR HAVE BEEN ENROLLED IN A CHEMICAL DEPENDENCY/SUBSTANCEABUSE PROGRAM, SOME INFORMATION MAY BE OMITTED. This clinical summary was aggregated from multiple sources. Caution should be exercised in using it in the provision of clinical care. This summary normalizes information from multiple sources, and as a consequence, information in this document may materially change the coding, format and clinical context of patient data. In addition, data may be omitted in some cases. CLINICAL DECISIONS SHOULD BE BASED ON THE PRIMARY CLINICAL RECORDS. [facility] [employer] [facility]. provides no warranty or guarantee of the accuracy or completeness of information in this document.
== END | disposition home or self-care (01) ==
LOC: OPBI 11:58
PROVIDERS: Referring Provider Midwife; Visit Provider Midwife
DX: Z12.31 Encounter for screening mammogram for malignant neoplasm of breast (principal)
CPT/HCPCS: 77063; 77067